=== PATIENT | male | born 1950 | race Caucasian/White ===

== ENCOUNTER 2017-09-11 10:17 | Outpatient (CLI) | payer MEDICARE ==
--- NOTE | 2017-09-11 12:18 | RAD ---
PA AND LATERAL VIEWS OF THE CHEST: HISTORY: Cough, congestion, and dizziness. FINDINGS/IMPRESSION: Comparison is made with the exam of 07/13/17. Bilateral pleural effusions remain stable. The previously noted airspace opacity in the right lower lung demonstrates interval incomplete resolution. The remainder of the parenchymal changes lung fiel ds are otherwise stable. No pneumothoraces are seen. POS: OFF
== END 2017-09-11 10:18 | disposition home or self-care (01) ==
LOC: SCSRAD 10:17
PROVIDERS: ATTEND Family Medicine
DX: R05 Cough (principal); J90 Pleural effusion, not elsewhere classified; R91.8 Other nonspecific abnormal finding of lung field
CPT/HCPCS: 71046

== ENCOUNTER 2017-11-03 10:18 | Inpatient (IN) | payer MEDICARE ==
[2017-11-03] MEDS ORDERED: Ondansetron HCl/PF 4 MG/2 ML Vial IVP PRN (12:26)
[2017-11-03] MEDS ORDERED: Acetaminophen 325 MG TAB PO PRN (12:26)
[2017-11-03] MEDS ORDERED: cefTRIAXone\\ROCEPHIN 1 GM in Sodium Chloride 0.9% 100 ML IVPB SCH (12:30)
--- NOTE | 2017-11-03 13:10 | HP ---
PRIMARY CARE PROVIDER: Adi Hagan M.D. INTERNAL INVESTIGATOR: Tyler Colmenares M.D. Transferred from [facility] to [facility] and transferred to [facility] ist Service for shortness of breath and acute respiratory failure with hypoxemia. The patient states he has had 4 days of increasing shortness of breath, now unable to sleep, jittery, has cough, clear with phlegm. He has chills, sweats for the last 24 hours. PAST MEDICAL HISTORY: Pertinent for COPD, chronic pleural effusion, hypertension, history of DVT and PE approximately 2 years ago. PAST SURGICAL HISTORY: No surgery. MEDICATIONS: Lisinopril 20 mg a day, Anoro Ellipta 1 puff once a day, ProAir HFA 2 puffs q.4 hours p .r.n. ALLERGIES: None. REVIEW OF SYSTEMS: GENERAL: No headaches, dizziness or fainting. EYES: No double vision, blurred vision, flashing lights. EAR, NOSE, AND THROAT: No ear pain or drainage. No nasal bleeding. No tr ouble swallowing. CARDIAC: No chest pain, orthopnea or paroxysmal nocturnal dyspnea. RESPIRATIONS: See present illness. GASTROINTESTINAL: No nausea, vomiting, diarrhea, constipation or abdominal p ain. GENITOURINARY: No hematuria, dysuria or nocturia. MUSCULOSKELETAL: Swelling in his ankles fo r about 1 week. No pain. NEUROLOGIC: No strokes, seizures or focal weakness. PSYCHIATRIC: Anxiou s with his shortness of breath, but no chronic problem with anxiety, depression. SKIN: Bruises easi ly on his arms. HEME/LYMPH: No tender or swollen lymph nodes in axilla, inguinal or cervical area. PHYSICAL EXAMINATION: GENERAL: He is tachypneic, respiratory rate 24-28 on my exam, pulse 95-100, blood pressure 101/73, t emperature 98.9, pulse oximetry on room air was approximately 85%. He is 93% on 3 liters of O2. GENERAL: As mentioned before, he is alert and oriented. HEENT: Examination of his head, eyes, ears, nose, and throat reveal pupils are equal, round, and kalyani ctive to light. Extraocular movements are intact. Sclerae are white. Tympanic membranes clear. No se is clear. Mucous membranes are wet. Dental hygiene is good. NECK: Supple, without jugular venous distention, adenopathy or thyromegaly. CHEST: Hyperresonant with distant breath sounds, wheezes and rhonchi diffusely. HEART: Regular rate and rhythm. First and second heart sounds normal, no appreciated murmurs or gal lops. ABDOMEN: Soft, bowel sounds are normal. There is no hepatosplenomegaly, no mass, no rebound. EXTREMITIES: Reveal 2+ edema, no cyanosis or clubbing. PULSES: Carotid, radial, femoral, and dorsalis pedis pulses intact. Pedal pulses partially obscured by edema, but present. SKIN: Warm and dry with some minor bruising on his arms. HEME/LYMPH: Reveal no tender or swollen lymph nodes in axilla, inguinal or cervical area. NEUROLOGIC: Cranial nerves II-XII are intact. Moves all extremities. Sensation is intact. IMAGING DATA AND LABORATORY DATA: EKG sinus tachycardia, nonspecific ST-T abnormalities. Chest x-ra y revealed bilateral pleural effusion, bilateral lower lobe scarring. Effusions appeared to be worse than previous. No cardiomegaly, question of pulmonary vascular congestion. Laboratory done in [facility]; white count 12.1, hemoglobin 7.3, platelet count 189,000. Comp metabolic profile ; bilirubin 1.3, sodium 135. Troponin is 0.038, CK-MB normal. BNP 283. ADMITTING DIAGNOSES: 1. Acute respiratory failure with hypoxemia. 2. Acute exacerbation of chronic obstructive pulmonary disease. 3. Bilateral pleural effusions. 4. Bilateral pulmonary scarring in the bases. 5. Hypertension. 6. Edema. PLAN: 1. O2 to keep saturation 92%. 2. DuoNeb 3 mL q.4 hours. 3. Dulera 2 puffs q.4 hours b.i.d. 4. Methylprednisone 40 mg IV q.6 hours. 5. Ceftriaxone 1 gram daily. 6. Zithromax 1 gram IV daily. 7. Consult Dr. Colmenares. 8. Serial troponins.
[2017-11-03 14:36] VITALS: BMI 32.5
[2017-11-03] MEDS: cefTRIAXone\\ROCEPHIN 1 GM, Syringe 0.4 ML in Sterile Water 9.6 ML SLOW IVP SCH (14:53)
[2017-11-03] MEDS: Azithromycin 500 MG, Admixture Fee 1 EACH in Sodium Chloride 0.9% 250 ML 250 ML IVPB SCH (15:04)
[2017-11-03 15:23] LABS: Troponin I 0.029 ng/mL (< 0.028)
[2017-11-03] MEDS ORDERED: Phenergan/Codeine 10-6.25mg/5ml UDCUP PO PRN (15:38)
[2017-11-03] MEDS ORDERED: Benzonatate 100 MG CAP PO SCH (16:00)
[2017-11-03] MEDS: Mometasone/Formoterol 120 PUFF INHALER INH SCH (18:57)
[2017-11-03 18:59] LABS: Troponin I 0.032 ng/mL (< 0.028)
[2017-11-03] MEDS: Benzonatate 100 MG CAP PO SCH (21:12)
--- NOTE | 2017-11-04 01:20 | CON ---
DATE OF CONSULTATION: 11/03/2017 HISTORY OF PRESENT ILLNESS: Regis Patiño is a 67-year-old male. He presents with cough, chest congestion, and shortness of breath since Thursday. He has had chills and feeling of sweats as well as possibly fever. He has been unable to sleep because of his coughing at night, subsequently he has been admitted. PAST MEDICAL HISTORY: 1. Remarkable for COPD. 2. History of left greater than right pleural effusion documented on past imaging. 3. History of hypertension. 4. History of deep venous thrombosis and pulmonary embolism. 5. History of obstructive sleep apnea. SOCIAL HISTORY: He is a former smoker with a [id number] history. He rarely drinks alcohol. He has no history of drug use. FAMILY HISTORY: Noncontributory ALLERGIES: He has no reported drug allergies. Daughter in the room appears to be very supportive. PAST SURGICAL HISTORY: Never had surgery. REVIEW OF SYSTEMS: 12-point review of system otherwise completely negative PHYSICAL EXAMINATION: GENERAL: He is a pleasant gentleman in no distress. He is coughing frequently. VITAL SIGNS: He is afebrile, heart rate is 91, respiratory rate 16, oximetry is 100% on 2 liters, blood pressure 142/88. HEENT: Pupils are equal. Sclerae is anicteric. NECK: Supple, no lymphadenopathy. Trachea is in midline. LUNGS: Remarkable for diffuse end expiratory wheezes, more audible anteriorly and posteriorly. He has decreased breath sounds at his left base. HEART: Regular rhythm. S1 and S2 are normal. I do not hear a gallop. ABDOMEN: Soft and nontender. No mass or organomegaly. EXTREMITIES: Without clubbing, cyanosis, or edema. LABORATORY DATA AND X-RAY FINDINGS: Chest radiograph shows left greater than right effusion. No change in his film compared to old films. White count 12.1 , hemoglobin 17.3, platelets 188,000. Sodium 135, potassium 4, chloride 101, bicarbonate 25, BUN 7, creatinine 0.75. I reviewed his radiograph. IMPRESSION: 1. Chronic obstructive pulmonary disease exacerbation. 2. Bronchitis. 3. Chronic bilateral pleural effusions. 4. History of deep venous thrombosis and pulmonary embolism. I recommend continue with antimicrobial therapy. His antibiotics can probably be simplified tomorrow. I think, this is more bronchitis than a pneumonia. I suspect by tomorrow, we can decrease his steroid dosing as well. I have written for Tessalon Perles to be given around the clock as well as p.r.n. Phenergan with codeine cough syrup. This is 50-minute consult greater than 50% of the time was spent on the unit coordinating care. BEN
[2017-11-04 06:14] LABS: Anion Gap 11 mmol/L (10-20); BUN (Urea Nitrogen) 16 mg/dL (8.4-25.7); Calc. Creatinine Clearance 209 mL/min (70-130); Calcium 9.4 mg/dL (7.8-10.44); Carbon Dioxide 28 mmol/L (23-31); Chloride 105 mmol/L (98-107); Estimated GFR-MDRD Greater than 90; Glucose 167 mg/dL (80-115); Potassium 4.7 mmol/L (3.5-5.1); Sodium 139 mmol/L (136-145)
[2017-11-04 06:48] LABS: #Lymphocytes 0.5 thou/uL (1.20-3.40); #Monocytes 0.4 thou/uL (0.11-0.59); #Neutrophils 8.8 thou/uL (1.40-6.50); %Eosinophils 0.1 % (0.0-10.0); %Monocytes 4.5 % (0.0-10.0); %Neutrophils 90.4 % (42.0-75.0); Hemoglobin 17.3 g/dL (14.0-18.0); MDiff Complete? YES; Macrocytosis SLIGHT = 6-15 cells (100X) (0-5/hpf); Mean Corpuscular HGB CONC 32.1 g/dL (32.0-36.0); Mean Corpuscular Hemoglobin 34.9 pg (27.0-31.0); Mean Platelet Volume 6.8 fL (7.4-10.4); PLT Morphology Comment Appears Adequate; Platelet Count 210 thou/uL (130-400); RBC Distribution Width 14.1 % (11.5-14.5); Red Blood Cell (RBC) Count 4.97 mill/uL (4.70-6.10); White Blood Cell (WBC) Count 9.7 thou/uL (4.8-10.8)
[2017-11-04] MEDS: Mometasone/Formoterol 120 PUFF INHALER INH SCH (06:50)
[2017-11-04] MEDS: Benzonatate 100 MG CAP PO SCH ×2 (08:10→15:42)
[2017-11-04] MEDS: Enoxaparin Sodium 40 MG/0.4 ML SYRINGE SC SCH (08:30)
--- NOTE | 2017-11-04 10:06 | PDOC.PN ---
- Subjective Encounter Start Date: 11/04/17 Encounter Start Time: 10:04 Subjective: much less sob - Objective MAR Reviewed: Yes Vital Signs & Weight: Vital Signs (12 hours) Temp Pulse Resp BP Pulse Ox 11/04/17 08:00 97.6 F 96 18 138/72 97 11/04/17 06:48 83 18 99 Weight Weight 318 lb 6.4 oz Result Diagrams: 11/04/17 05:00 11/04/17 05:00 Phys Exam - Physical Examination Neck: no JVD hyperresonant, exp wheezes Cardiovascular: RRR, no significant murmur tachy Gastrointestinal: soft, non-tender, positive bowel sounds Musculoskeletal: edema present Dx/Plan (1) Acute respiratory failure with hypoxia Code(s): J96.01 - ACUTE RESPIRATORY FAILURE WITH HYPOXIA Status: Acute (2) COPD exacerbation Code(s): J44.1 - CHRONIC OBSTRUCTIVE PULMONARY DISEASE W (ACUTE) EXACERBATION Status: Acute (3) Pleural effusion Code(s): J90 - PLEURAL EFFUSION, NOT ELSEWHERE CLASSIFIED Status: Chronic (4) Hypertension Code(s): I10 - ESSENTIAL (PRIMARY) HYPERTENSION Status: Chronic - Plan deescalate steroids -: DC rocephin -: cont duonebs, etc * .
[2017-11-04] MEDS ORDERED: Zolpidem Tartrate 5 MG TAB PO PRN (10:17)
[2017-11-04] MEDS ORDERED: Lisinopril 20 MG TAB PO SCH (10:45)
[2017-11-04] MEDS: cefTRIAXone\\ROCEPHIN 1 GM, Syringe 0.4 ML in Sterile Water 9.6 ML SLOW IVP SCH (12:36)
[2017-11-04] MEDS: Azithromycin 500 MG, Admixture Fee 1 EACH in Sodium Chloride 0.9% 250 ML 250 ML IVPB SCH (12:36)
[2017-11-04 16:08] VITALS: TEMP 97.8
[2017-11-04] MEDS ORDERED: Furosemide 40 MG/4 ML VIAL SLOW IVP SCH (17:30)
--- NOTE | 2017-11-04 17:34 | PRG ---
DATE OF SERVICE: 11/04/2017 SERVICE: Pulmonary Medicine. INTERVAL HISTORY: The patient is doing fine from cardiovascular and respiratory standpoint. He is b reathing more comfortably. He denies any current fevers, chills, nausea, or vomiting. He said that prior to having respiratory difficulty he noticed for the last week, he started having increasing low er extremity swelling. Otherwise, there has been no change to his condition. If anything, he feels better today. PHYSICAL EXAMINATION: VITAL SIGNS: Afebrile, pulse 85, blood pressure 129/84, respirations 16, saturation 90% on room air. GENERAL: The patient is awake, alert, in no apparent distress. LUNGS: Reduced air entry with a prolonged expiratory phase. Dependent crackles. There is expirator y wheezing present. HEART: Normal rate, regular. ABDOMEN: Soft, nontender, nondistended. Bowel sounds are positive. MUSCULOSKELETAL: No cyanosis or clubbing. There is 1+ pitting in the bilateral lower extremities. NEUROLOGIC: Grossly nonfocal. LABORATORY DATA: WBC 9.7, hemoglobin 17.3, platelets 210. Basic metabolic profile is essentially un remarkable. Troponin is marginally elevated at 0.03. ASSESSMENT: 1. Acute hypoxic respiratory failure. 2. Chronic obstructive pulmonary disease with acute exacerbation. 3. Acute on chronic diastolic heart failure. 4. Rounded atelectasis of the right lung, chronic. 5. Bilateral pleural effusions, variable. PLAN: We will provide the patient with a dose of Lasix now and tomorrow morning. If he is doing wel l tomorrow morning, he can be considered for transition out of the hospital. I would like for him to go out on p.r.n. Lasix. His home inhalers will be resumed on discharge. All of his medications branden l be switched over to p.o. at this time. Steroids and antibiotics can be discontinued after a total duration of 5 days.
[2017-11-04] MEDS: Cefdinir 300 MG CAP PO SCH (20:08)
[2017-11-05] MEDS ORDERED: Furosemide 40 MG TAB PO PRN (08:00)
[2017-11-05] MEDS ORDERED: predniSONE 20 MG TAB PO SCH (08:00)
[2017-11-05 08:09] VITALS: BP 106/69
[2017-11-05] MEDS: Cefdinir 300 MG CAP PO SCH (08:49)
[2017-11-05] MEDS: Enoxaparin Sodium 40 MG/0.4 ML SYRINGE SC SCH (08:53)
[2017-11-05] MEDS ORDERED: Lisinopril 5 MG TAB PO SCH (09:00)
[2017-11-05] MEDS ORDERED: Lisinopril 20 MG TAB PO SCH (09:00)
--- NOTE | 2017-11-05 16:30 | PRG ---
DATE OF SERVICE: 11/05/2017 SERVICE: Pulmonary Medicine. INTERVAL HISTORY: The patient is doing really well from a respiratory standpoint. He denies any cur rent fevers, chills, nausea or vomiting. His breathing is much improved over the last 24 hours and roosevelt madden is hopeful to go home today. I do think this is perfectly reasonable given. PHYSICAL EXAMINATION: VITAL SIGNS: Afebrile, pulse 80, blood pressure 106/69, respirations 20 and saturation 94% on room a ir. GENERAL: The patient is awake and alert, in no apparent distress. LUNGS: Much improved air entry. There still remains prolonged expiratory phase. I do not appreciat e the crackles, but polyphonic wheezing is still present. HEART: Normal rate and regular. ABDOMEN: Soft, nontender and nondistended. Bowel sounds are positive. MUSCULOSKELETAL: No cyanosis or clubbing. No pitting in the bilateral lower extremities. NEUROLOGIC: Grossly nonfocal. ASSESSMENT: 1. Acute hypoxic respiratory failure. 2. Chronic obstructive pulmonary disease with acute exacerbation. 3. Acute on chronic diastolic heart failure. 4. Rounded atelectasis of the right lung, chronic. 5. Bilateral pleural effusions, variable associated with volume status. PLAN: The patient will be discharged on p.r.n. Lasix. I will have him return to clinic in the outpa tient setting to consider polysomnogram for sleep apnea. We will also consider triple therapy and sw itch him over to Trelegy Ellipta. He will need to complete 5 days of steroids and antibiotics. He w ill return to clinic to see me as previously directed.
--- NOTE | 2017-11-06 00:30 | DIS ---
PRIMARY CARE PHYSICIAN: Dr. Adi Hagan. DATE OF ADMISSION: 11/03/2017 DATE OF DISCHARGE: 11/05/2017 DISCHARGE DISPOSITION: Home. PRIMARY DISCHARGE DIAGNOSES: 1. Acute on chronic respiratory failure secondary to chronic obstructive pulmonary disease exacerbat ion. 2. History of chronic pleural effusion. 3. Hypertension. 4. History of deep vein thrombosis and pulmonary embolism, 2 years ago. DISCHARGE MEDICATIONS: The patient was discharged on Omnicef 300 mg twice a day for 3 additional day s as well as a 5-day course of prednisone 40 mg daily. He is to continue lisinopril 20 mg daily, Las ix 40 mg daily, Ventolin nebs q.6 as needed, and umeclidinium/vilanterol inhaler daily. CODE STATUS: FULL CODE. ALLERGIES: No known drug allergies. HOSPITAL COURSE: Mr. Patiño is a pleasant 67-year-old gentleman who was admitted to the [facility] with shortness of breath. He was found to be hypoxemic as well. He was admitted for a COPD exacer bation. He was seen by Pulmonology and treated with IV antibiotics as well as steroids and improved over the course of the next few days and was subsequently able to be discharged home in stable condit ion to have close followup with Dr. Colmenares as instructed and also with his primary care physician in 1-2 weeks.
== END 2017-11-05 13:10 | disposition home or self-care (01) | DRG 189 ==
LOC: ERS 10:18 → ERHOLD 12:26 → T4-B 14:22
PROVIDERS: ADMIT Internal Medicine; ATTEND Internal Medicine
DX: J96.21 Acute and chronic respiratory failure with hypoxia (principal); I50.33 Acute on chronic diastolic (congestive) heart failure; J90 Pleural effusion, not elsewhere classified; J44.1 Chronic obstructive pulmonary disease with (acute) exacerbation; J98.11 Atelectasis; Z86.718 Personal history of other venous thrombosis and embolism; Z86.711 Personal history of pulmonary embolism; I11.0 Hypertensive heart disease with heart failure; Z87.891 Personal history of nicotine dependence; F32.9 Major depressive disorder, single episode, unspecified
CPT/HCPCS: 36415; 80048; 85025; 94640; A4216; J0456; J0696; J1650; J1940; J2920; J7050; J7506; J7620

== ENCOUNTER 2018-03-31 16:06 | Outpatient (CLI) | payer MEDICARE ==
--- NOTE | 2018-03-31 16:44 | RAD ---
CHEST TWO VIEW 03/31/18 HISTORY: J44.9 - COPD. COMPARISON: Chest radiograph 11/03/15. FINDINGS: Chronic layering bilateral pleural effusions. There is scarring in both lower lobes. The cardiac silhouette and mediastinal contours are similar. Levoscoliosis at the thoracolumbar junct ion. IMPRESSION: No significant change in radiographic appearance of the chest. Chronic effusion and scarring. POS: CELSOH
== END 2018-03-31 16:07 | disposition home or self-care (01) ==
LOC: SCSRAD 16:06
PROVIDERS: ATTEND Family Medicine
DX: J44.9 Chronic obstructive pulmonary disease, unspecified (principal); J90 Pleural effusion, not elsewhere classified; J98.4 Other disorders of lung
CPT/HCPCS: 71046

== ENCOUNTER 2018-05-02 08:21 | Inpatient (IN) | payer MEDICARE ==
[2018-05-02 09:42] LABS: Troponin I 0.066 ng/mL (< 0.028)
[2018-05-02 12:23] LABS: Troponin I 0.056 ng/mL (< 0.028)
[2018-05-02] MEDS ORDERED: Nitroglycerin 0.4 MG TAB (25 Tab Bottle) PO PRN (14:58)
[2018-05-02] MEDS ORDERED: Senokot 8.6 MG TAB PO PRN (14:59)
[2018-05-02] MEDS ORDERED: Milk Of Magnesia 30 ML UDCUP PO PRN (14:59)
[2018-05-02] MEDS ORDERED: Mag-Al 1200 mg/1200 mg/30 ML UDCUP PO PRN (14:59)
[2018-05-02] MEDS ORDERED: Calcium Carbonate 500 MG ChewTAB PO PRN (14:59)
[2018-05-02] MEDS ORDERED: Acetaminophen 325 MG TAB PO PRN (14:59)
[2018-05-02] MEDS ORDERED: Ondansetron ODT 4 MG TAB PO PRN (14:59)
[2018-05-02] MEDS ORDERED: Ondansetron HCl/PF 4 MG/2 ML Vial IVP PRN (14:59)
--- NOTE | 2018-05-02 15:22 | PDOC.EVN ---
Event Note - Event Note Event Note: Patient seen and examined. Note dictated. Full code. DPOA - self/family
--- NOTE | 2018-05-02 15:25 | HP ---
DATE OF ADMISSION: 05/02/2018 PRIMARY CARE PHYSICIAN: Dr. Hagan. PRIMARY PROFESSOR OF BUSINESS ADMINISTRATION: Dr. Martinez. PRIMARY COLLAR FUSER: Dr. Colmenares. CHIEF COMPLAINT: Shortness of breath. HISTORY OF PRESENT ILLNESS: Patient is a 67-year-old male with chronic diastolic heart failure and c hronic obstructive pulmonary disease with chronic respiratory failure, on home oxygen 2.5 liters, pre sented to the emergency room with worsening shortness of breath along with leg swelling of 1 week dur ation. His symptoms got worse today for which he presented to the emergency room. He initially pres ented to [facility] and was transferred to this facility. He has gained approximately 12 pounds over the past week or so. He also complains of abdominal distention and bloating. He was miguel d by Dr. Martinez to increase Lasix to 80 mg twice a day for 4 days. He tried contacting Dr. Martinez's office; however, did not get a call back after leaving a voicemail. Due to progressive worsening sym ptoms, he presented to the emergency room. He had mild chest pain; however, denies any nausea, vomit ing, diaphoresis, syncope or palpitations. He also complains of shortness of breath on lying down as well as mild exertion. He is currently on 2-1/2 liter oxygen. His O2 saturation in the emergency r oom was in 80s. PAST MEDICAL HISTORY: 1. Chronic diastolic heart failure. 2. Hypertension. 3. Chronic obstructive pulmonary disease. 4. Chronic respiratory failure, on home oxygen. 5. Depression. PAST SURGICAL HISTORY: Reviewed with the patient and none. ALLERGIES: No known drug allergies. CURRENT HOME MEDICATIONS: 1. Lasix 40 mg daily. He took 80 mg Lasix twice a day for 4 days. 2. Anoro Ellipta daily. 3. Lisinopril 20 mg daily. SOCIAL HISTORY: Drinks socially. He is a former smoker. Denies any drug use. FAMILY HISTORY: No premature coronary artery disease. REVIEW OF SYSTEMS: The following complete review of systems was negative, unless otherwise mentioned in the HPI or below: Constitutional: Weight loss or gain, ability to conduct usual activities. Skin: Rash, itching. Eyes: Double vision, pain. ENT/Mouth: Nose bleeding, neck stiffness, pain, tenderness. Cardiovascular: Palpitations, dyspnea on exertion, orthopnea. Respiratory: Shortness of breath, wheezing, cough, hemoptysis, fever or night sweats. Gastrointestinal: Poor appetite, abdominal pain, heartburn, nausea, vomiting, constipation, or diarr hea. Genitourinary: Urgency, frequency, dysuria, nocturia. Musculoskeletal: Pain, swelling. Neurologic/Psychiatric: Anxiety, depression. Allergy/Immunologic: Skin rash, bleeding tendency. PHYSICAL EXAMINATION: VITAL SIGNS: Currently showed temperature 97.9, respirations 26, blood pressure 125/87 with O2 satur ation of 94%. His pulse rate was 95. GENERAL: A 67-year-old male in mild respiratory distress. Able to complete short sentences. HEENT: Head is atraumatic, normocephalic. Sclerae are anicteric. Moist mucous membranes. No oral lesion. NECK: Supple, no significant JVD elevation appreciated. LUNGS: Showed bilateral rhonchi with decreased air entry at bilateral bases. There was mild accesso ry muscle use. No wheezing noted. HEART: S1, S2 present. Regular rate and rhythm. No significant rubs or gallops appreciated. ABDOMEN: Soft, distended, bowel sounds present, no rebound or guarding. EXTREMITIES: No calf tenderness. There is 2-3+ edema. SKIN: Warm and dry. LYMPH NODES: No palpable lymph nodes in the neck. PERIPHERAL VASCULAR: Radial pulses palpable bilaterally. MUSCULOSKELETAL: No joint swelling or tenderness. LABORATORY DATA AND X-RAY FINDINGS: 1. CBC showed WBC 8.4 with hemoglobin 16.5, hematocrit 51.9, platelet 223. 2. INR 2.5 with PT 26.7, PTT 39.7. D-dimer was 1.34. 3. Troponin in the indeterminate range at 0.074 with normal CK-MB. BNP 1139. 4. Urinalysis was negative for WBC or bacteria. 5. CT angiogram of the chest by my review was negative for pulmonary embolism. It showed bilateral effusions with bibasilar atelectasis with vascular congestion. There was also small pericardial effu ainsley. 6. Chest x-ray by my review showed cardiomegaly with pulmonary vascular congestion. 7. EKG by my review showed sinus rhythm with premature ventricular complexes with right bundle branc h block. IMPRESSION: 1. Acute on chronic diastolic heart failure exacerbation. 2. Acute on chronic hypoxic respiratory failure. 3. Contraction alkalosis secondary to diuresis. 4. Chronic kidney disease stage 2. 5. Coagulopathy, chronic of unclear etiology. 6. Elevated D-dimer with negative CT angiogram of the chest for pulmonary embolism. 7. Depression without any suicidal ideation. 8. Hypertension. 9. Abdominal distention and bloating probably secondary to ascites. 10. Chronic obstructive pulmonary disease. 11. Chronic respiratory failure, on home oxygen. PLAN: The patient will be monitored on the telemetry unit. We will continue diuresis. Nebulizer tr eatment as needed. He has significant contraction alkalosis. Cardiology will be consulted. We will add fluid restriction. We will resume MATHIEU inhibitor at low dose. The patient will require 2-3 days for stabilization. Plan of care was discussed with the patient in detail. He stated understanding.
[2018-05-02] MEDS ORDERED: Phytonadione 10 MG/ML AMP PO SCH (16:00)
[2018-05-02] MEDS ORDERED: Furosemide 40 MG/4 ML VIAL SLOW IVP SCH ×2 (16:00)
[2018-05-02 16:08] LABS: Anion Gap 10 mmol/L (10-20); BUN (Urea Nitrogen) 15 mg/dL (8.4-25.7); Calc. Creatinine Clearance 0 mL/min (70-130); Calcium 8.6 mg/dL (7.8-10.44); Carbon Dioxide 37 mmol/L (23-31); Chloride 93 mmol/L (98-107); Estimated GFR-MDRD 72; Glucose 208 mg/dL (80-115); Potassium 4.2 mmol/L (3.5-5.1); Sodium 136 mmol/L (136-145)
[2018-05-02 16:19] LABS: Troponin I 0.057 ng/mL (< 0.028)
[2018-05-02] MEDS: Budesonide 0.5 MG/2 ML NEB INH SCH (19:26)
[2018-05-02] MEDS: Mometasone/Formoterol 120 PUFF INHALER INH SCH (19:29)
[2018-05-02] MEDS: Famotidine 20 MG TAB PO SCH (20:33)
[2018-05-02] MEDS: Docusate 100 MG CAP PO SCH (20:34)
[2018-05-02] MEDS: Lisinopril 5 MG TAB PO SCH (20:34)
[2018-05-03 05:57] LABS: #Lymphocytes 0.6 thou/uL (1.20-3.40); #Monocytes 0.6 thou/uL (0.11-0.59); #Neutrophils 8.9 thou/uL (1.40-6.50); %Basophils 0.1 % (0.0-1.0); %Eosinophils 0.1 % (0.0-10.0); %Lymphocytes 5.5 % (21.0-51.0); %Monocytes 5.8 % (0.0-10.0); %Neutrophils 88.5 % (42.0-75.0); Mean Corpuscular HGB CONC 31.8 g/dL (32.0-36.0); Mean Corpuscular Hemoglobin 32.1 pg (27.0-31.0); Mean Platelet Volume 6.7 fL (7.4-10.4); Platelet Count 200 thou/uL (130-400); RBC Distribution Width 12.4 % (11.5-14.5); Red Blood Cell (RBC) Count 4.66 mill/uL (4.70-6.10)
[2018-05-03 06:04] LABS: INR-International Normal Ratio 1.7; PTT 35.1 SEC (22.9-36.1)
[2018-05-03 06:11] LABS: ALT (SGPT) 18 U/L (8-55); AST (SGOT) 17 U/L (5-34); Alkaline Phosphatase 82 U/L (40-150); Anion Gap 13 mmol/L (10-20); BUN (Urea Nitrogen) 14 mg/dL (8.4-25.7); Bilirubin, Total 0.4 mg/dL (0.2-1.2); Calc. Creatinine Clearance 180 mL/min (70-130); Calcium 8.6 mg/dL (7.8-10.44); Carbon Dioxide 34 mmol/L (23-31); Chloride 94 mmol/L (98-107); Estimated GFR-MDRD Greater than 90; Globulin 2.6 g/dL (2.4-3.5); Glucose 130 mg/dL (80-115); Magnesium 2.3 mg/dL (1.6-2.6); Potassium 4.7 mmol/L (3.5-5.1); Protein, Total 5.6 g/dL (5.8-8.1); Sodium 136 mmol/L (136-145)
[2018-05-03] MEDS: Furosemide 40 MG/4 ML VIAL SLOW IVP SCH ×2 (06:24→14:24)
[2018-05-03] MEDS: Budesonide 0.5 MG/2 ML NEB INH SCH ×2 (06:52→19:31)
[2018-05-03] MEDS: Mometasone/Formoterol 120 PUFF INHALER INH SCH ×2 (06:54→19:34)
[2018-05-03] MEDS: Docusate 100 MG CAP PO SCH ×2 (10:34→20:54)
[2018-05-03] MEDS: Lisinopril 5 MG TAB PO SCH ×2 (10:34→20:55)
[2018-05-03] MEDS: Aspirin 81 mg Enteric Coated Tablet PO SCH (10:34)
[2018-05-03] MEDS: Famotidine 20 MG TAB PO SCH ×2 (10:35→20:46)
[2018-05-03] MEDS: Multivit, Therapeutic 1 TAB PO SCH (10:35)
[2018-05-03] MEDS ORDERED: Phytonadione 10 MG/ML AMP PO SCH (13:00)
--- NOTE | 2018-05-03 17:44 | CON ---
DATE OF CONSULTATION: 05/03/2018 CARDIOLOGY CONSULTATION REASON FOR CONSULTATION: Heart failure. HISTORY OF PRESENT ILLNESS: Mr. Patiño is a pleasant 67-year-old white gentleman who comes to the [facility] for worsening shortness of breath. He has a history of COPD. He continues to smoke. Follows up by Dr. Colmenares. I saw him in the office just a week ago for the first time since 2014. At that t bel in 2014, he had had an echo that showed normal LV function and diastolic heart failure. He prese nted to the office with increased shortness of breath and lower extremity edema. We put him on Lasix 80 mg twice a day for 3 or 4 days, he felt his edema did improve except for the last day. His edema and shortness of breath certainly had worsened. This was Thursday, the edema and the shortness of jamia ath got worse until Thursday when he decided to come into the hospital. He was found to have an elevat ed BNP and be in florid heart rates. He was admitted for further evaluation and care. He has been d iuresed with IV Lasix and he has been peeing a lot more effectively then with p.o. Lasix. PAST MEDICAL HISTORY: 1. COPD. 2. Chronic diastolic heart failure. 3. Hypertension. 4. Home oxygen use secondary to COPD. 5. Depression. 6. History of bilateral PEs, has been off Coumadin for the last 2 or 3 years. PAST SURGICAL HISTORY: None. OUTPATIENT MEDICATIONS: Include, 1. Lasix. 2. Anoro Ellipta. 3. Lisinopril 20 mg a day. ALLERGIES: No known drug allergies. SOCIAL HISTORY: Social alcohol use, has not smoked in the last week. No drug use. FAMILY HISTORY: Noncontributory. REVIEW OF SYSTEMS: A 12-point review of systems was done and is all negative unless stated in the hi story of present illness. PHYSICAL EXAMINATION: VITAL SIGNS: Temperature 97.7, pulse 83, respiration rate 20, satting 92% on 2 liters, blood pressur e 102/57. GENERAL: Awake, alert, oriented x3, in no distress. HEENT: Normocephalic, atraumatic. NECK: Supple. LUNGS: Have reduced breath sounds bilaterally. CARDIOVASCULAR: S1, S2, no S3, S4. There is a grade 2/6 systolic murmur right upper sternal border. ABDOMEN: Soft, positive bowel sounds. EXTREMITIES: 3+ edema on the left leg, 1+ on the right leg. SKIN: Warm and dry. LABORATORY WORK: Reviewed. CBC is unremarkable. Coags were reviewed. Chemistries were reviewed. Normal sodium and potassium normal BUN and creatinine. Troponin is 0.06 and 0.05, 0.05. Albumin of 3.0. BNP was 1139. EKG is reviewed. CT of the chest was reviewed. There is no pulmonary embolisms. There are bilateral pleural effusion s with small pericardial effusion and cardiomegaly with vascular congestion. Telemetry monitoring that showed several runs of nonsustained VT. ASSESSMENT AND PLAN: 1. Acute on chronic decompensated heart failure, systolic versus diastolic, highly suspect systolic this time. 2. Chronic obstructive pulmonary disease. 3. History of bilateral pulmonary embolism. PLAN: We will increase IV diuresis to Lasix 80 mg twice a day. We will continue other medications. We will get an echocardiogram and depending on LV function, will decide on further risk stratificati on currently, most likely will just diurese. We will plan on doing this as an outpatient. Thank you letting us to participate in the care of your patient. We will follow.
--- NOTE | 2018-05-03 21:26 | PDOC.PN ---
- Subjective Encounter Start Date: 05/03/18 Encounter Start Time: 15:00 Patient seen and examined for CHF. No new complaints. No overnight events - Objective Resuscitation Status: Resuscitation Status FULL:Full Resuscitation MAR Reviewed: Yes Vital Signs & Weight: Vital Signs (12 hours) Temp Pulse Resp BP BP Pulse Ox 05/03/18 20:55 84 99/54 L 05/03/18 19:31 88 16 96 05/03/18 14:25 97.7 F 83 20 102/57 L 92 L 05/03/18 10:34 86 Weight Admit Weight 305 lb 4.8 oz Weight 304 lb 9.6 oz I&O: 05/02/18 05/03/18 05/04/18 06:59 06:59 06:59 Intake Total 450 Output Total 1525 Balance -1075 Result Diagrams: 05/03/18 05:36 05/03/18 05:36 EKG Reviewed by me: Yes (Tele SR) Phys Exam - Physical Examination Constitutional: NAD Respiratory: no wheezing, no rhonchi Few bibasilar rales Cardiovascular: RRR, no rub Gastrointestinal: soft, non-tender, positive bowel sounds Musculoskeletal: edema present Neurological: non-focal Dx/Plan - Plan DVT proph w/SCDs IMPRESSION: 1. Acute on chronic diastolic heart failure exacerbation. 2. Acute on chronic hypoxic respiratory failure. 3. NSVT 4. Chronic kidney disease stage 2. 5. Coagulopathy prob due to Vit K def 6. Elevated tropo due to CHF 7. Depression. 8. Hypertension. 9. Abdominal distention and bloating probably secondary to ascites. 10. Chronic obstructive pulmonary disease. 11. Chronic respiratory failure, on home oxygen/Obesity BMI 31.1 / PLAN: Cont IV diuresis Daily labs Cont ACEI No Betablocker due to COPD Cont Vit K Cont Cardiac Rehab Cont current labs as below Review of Systems - Review of Systems Constitutional: negative: fever, chills, sweats, weakness, malaise, other Respiratory: negative: Cough, Dry, Shortness of Breath, Hemoptysis, SOB with Excertion, Pleuritic Pain, Sputum, Wheezing Gastrointestinal: negative: Nausea, Vomiting, Abdominal Pain, Diarrhea, Constipation, Melena, Hematochezia, Other - Medications/Allergies Allergies/Adverse Reactions: Allergies Allergy/AdvReac Type Severity Reaction Status Date / Time No Known Allergies Allergy Verified 11/03/17 14:32 Medications: Current Medications Acetaminophen (Tylenol) 650 mg PO Q6H PRN PRN Reason: Headache/Fever or Pain Al Hydroxide/Mg Hydroxide (Maalox) 30 ml PO Q6H PRN PRN Reason: Heartburn or Indigestion Albuterol/Ipratropium (Duoneb) 3 ml NEB [id number] PRN PRN Reason: SOB &/or Wheezing Last Admin: 05/03/18 06:56 Dose: 3 ml Aspirin (Ecotrin) 81 mg PO DAILY [facility] Last Admin: 05/03/18 10:34 Dose: 81 mg Budesonide (Pulmicort Neb Solution) 0.5 mg INH BID-RT [facility] Last Admin: 05/03/18 19:31 Dose: 0.5 mg Calcium Carbonate (Tums) 1,000 mg PO Q4H PRN PRN Reason: Heartburn or Indigestion Docusate Sodium (Colace) 100 mg PO BID [facility] Last Admin: 05/03/18 20:54 Dose: Not Given Famotidine (Pepcid) 20 mg PO BID [facility] Last Admin: 05/03/18 20:46 Dose: 20 mg Furosemide (Lasix) 80 mg PO 0900,1400 [facility] Lactulose (Lactulose) 20 gm PO DAILYPRN PRN PRN Reason: Constipation Lisinopril (Zestril) 5 mg PO BID [facility] Last Admin: 05/03/18 20:55 Dose: Not Given Magnesium Hydroxide (Milk Of Magnesium) 30 ml PO DAILYPRN PRN PRN Reason: Constipation Mometasone Furoate/Formoterol Fumar (Dulera 200 Mcg/5 Mcg Inhaler) 2 puff INH BID-RT [facility] Last Admin: 05/03/18 19:34 Dose: Not Given Multivitamins (Theragran) 1 tab PO DAILY [facility] Last Admin: 05/03/18 10:35 Dose: 1 tab Nitroglycerin (Nitrostat) 0.4 mg PO Q5MIN PRN PRN Reason: Chest Pain Ondansetron HCl (Zofran Odt) 4 mg PO Q6H PRN PRN Reason: Nausea/Vomiting Ondansetron HCl (Zofran) 4 mg IVP Q6H PRN PRN Reason: Nausea/Vomiting [Anoro Ellipta] 1 (Inh) 0 each INH DAILY [facility] Senna (Senokot) 2 tab PO HSPRN PRN PRN Reason: Constipation Sodium Chloride (Flush - Normal Saline) 10 ml IVF Q12HR [facility] Last Admin: 05/03/18 20:49 Dose: 10 ml Sodium Chloride (Flush - Normal Saline) 10 ml IVF PRN PRN PRN Reason: Saline Flush
[2018-05-04 06:32] LABS: Anion Gap 11 mmol/L (10-20); BUN (Urea Nitrogen) 17 mg/dL (8.4-25.7); Calc. Creatinine Clearance 184 mL/min (70-130); Calcium 8.3 mg/dL (7.8-10.44); Carbon Dioxide 33 mmol/L (23-31); Chloride 95 mmol/L (98-107); Estimated GFR-MDRD Greater than 90; Glucose 139 mg/dL (80-115); Magnesium 2.3 mg/dL (1.6-2.6); Potassium 3.8 mmol/L (3.5-5.1); Sodium 135 mmol/L (136-145)
[2018-05-04 06:51] LABS: INR-International Normal Ratio 1.1; PTT 29.5 SEC (22.9-36.1); Prothrombin Time 14.4 SEC (12.0-14.7)
[2018-05-04] MEDS: Budesonide 0.5 MG/2 ML NEB INH SCH ×2 (07:20→18:56)
[2018-05-04] MEDS: Mometasone/Formoterol 120 PUFF INHALER INH SCH ×2 (07:24→19:14)
[2018-05-04] MEDS ORDERED: ANORO ELLIPTA INH SCH (09:00)
[2018-05-04] MEDS ORDERED: Non-Formulary Item 1 EACH (Umeclidinium Brm/Vilanterol Tr [Anoro Ellipta] 1 INH) IH SCH (09:00)
[2018-05-04] MEDS: Multivit, Therapeutic 1 TAB PO SCH (09:54)
[2018-05-04] MEDS: Aspirin 81 mg Enteric Coated Tablet PO SCH (09:55)
[2018-05-04] MEDS: Furosemide 20 MG TAB PO SCH ×2 (09:55→14:30)
[2018-05-04] MEDS: Lisinopril 5 MG TAB PO SCH ×2 (09:57→20:11)
[2018-05-04] MEDS: Docusate 100 MG CAP PO SCH ×2 (09:59→20:12)
[2018-05-04] MEDS: Famotidine 20 MG TAB PO SCH ×2 (12:41→20:12)
--- NOTE | 2018-05-04 17:17 | PDOC.CTH ---
Cardiology Progress Note - Subjective He is doing better. He continues to diurese. He is still unable to lay flat without being short winded. - Objective Vital Signs Temp Pulse Pulse Pulse Resp BP BP 05/04/18 13:41 93 92 103/53 L 106/66 05/04/18 09:57 80 05/04/18 08:15 98.4 F 80 22 H 05/04/18 07:20 80 14 BP Pulse Ox Pulse Ox Pulse Ox 05/04/18 13:41 90 L 92 L 05/04/18 09:57 05/04/18 08:15 115/68 92 L 05/04/18 07:20 Admit Weight 305 lb 4.8 oz Weight 302 lb 12.8 oz 05/03/18 05/04/18 05/05/18 06:59 06:59 06:59 Intake Total 450 800 Output Total 1525 Balance -1075 800 - Physical Examination General/Neuro: alert & oriented x3, NAD Neck: no JVD present Lungs: other: (Reduced breath sounds.) Heart: RRR Abdomen: NT/ND Extremities: + edema B (1+) - Telemetry Telemetry Rhythm: NSR - Labs Result Diagrams: 05/03/18 05:36 05/04/18 05:44 Troponin/CKMB Troponin I 0.057 ng/mL (< 0.028) H 05/02/18 15:42 - Assessment/Plan 1. New onset dilated CM EF at 25-30%. 2. Acute systolic heart failure. 3. COPD 4. Hx of bilateral pulmonary embolism. PLAN: - Continue IV diuresis with lasix. - Will need C once able to lay flat. - Continue ACEI for now. Once more euvolemic will make space for a low dose BB as long pulmonary thinks he can tolerate given his COPD. - Will need lifevest before discharge. Will discuss with family after [facility] about this. - Will follow.
--- NOTE | 2018-05-04 22:30 | PDOC.PN ---
- Subjective Encounter Start Date: 05/04/18 Encounter Start Time: 09:30 Patient seen and examined for CHF. No new complaints. No overnight events. SOB improving. - Objective Resuscitation Status: Resuscitation Status FULL:Full Resuscitation MAR Reviewed: Yes Vital Signs & Weight: Vital Signs (12 hours) Temp Pulse Pulse Pulse Resp BP BP 05/04/18 20:11 86 05/04/18 19:30 98.4 F 86 22 H 05/04/18 18:56 90 16 05/04/18 18:53 90 16 05/04/18 16:45 98.0 F 86 22 H 05/04/18 13:41 93 92 103/53 L 106/66 05/04/18 12:40 98.7 F 86 22 H BP Pulse Ox Pulse Ox Pulse Ox 05/04/18 20:11 05/04/18 19:30 115/74 95 05/04/18 18:56 95 05/04/18 18:53 95 05/04/18 16:45 111/76 93 L 05/04/18 13:41 90 L 92 L 05/04/18 12:40 120/68 93 L Weight Admit Weight 305 lb 4.8 oz Weight 302 lb 12.8 oz I&O: 05/03/18 05/04/18 05/05/18 06:59 06:59 06:59 Intake Total 450 800 590 Output Total 1525 1775 Balance -1075 800 -1185 Result Diagrams: 05/05/18 05:11 05/06/18 07:01 Phys Exam - Physical Examination Constitutional: NAD Respiratory: no wheezing, no rhonchi few bibasilar rales Cardiovascular: RRR, no rub Gastrointestinal: soft, non-tender, positive bowel sounds Musculoskeletal: edema present (improvng) Neurological: moves all 4 limbs Psychiatric: A&O x 3 Dx/Plan - Plan IMPRESSION: 1. Acute on chronic systolic/diastolic heart failure exacerbation. 2. Acute on chronic hypoxic respiratory failure. 3. NSVT 4. Chronic kidney disease stage 2. 5. Coagulopathy prob due to Vit K def/Hepatic congestion - improving 6. Elevated tropo due to CHF 7. Depression. 8. Hypertension. 9. Abdominal distention and bloating probably secondary to ascites. 10. Chronic obstructive pulmonary disease. 11. Chronic respiratory failure, on home oxygen/Obesity BMI 31.1 PLAN: Cont IV diuresis Daily labs Cont ACEI No Betablocker due to COPD Cont Cardiac Rehab Cont current meds as below Lifevest at dc Cardiac Cath once able to lie flat. Review of Systems - Medications/Allergies Allergies/Adverse Reactions: Allergies Allergy/AdvReac Type Severity Reaction Status Date / Time No Known Allergies Allergy Verified 11/03/17 14:32 Medications: Current Medications Acetaminophen (Tylenol) 650 mg PO Q6H PRN PRN Reason: Headache/Fever or Pain Al Hydroxide/Mg Hydroxide (Maalox) 30 ml PO Q6H PRN PRN Reason: Heartburn or Indigestion Albuterol/Ipratropium (Duoneb) 3 ml NEB [id number] PRN PRN Reason: SOB &/or Wheezing Last Admin: 05/04/18 18:53 Dose: 3 ml Aspirin (Ecotrin) 81 mg PO DAILY [facility] Last Admin: 05/04/18 09:55 Dose: 81 mg Budesonide (Pulmicort Neb Solution) 0.5 mg INH BID-RT [facility] Last Admin: 05/04/18 18:56 Dose: 0.5 mg Calcium Carbonate (Tums) 1,000 mg PO Q4H PRN PRN Reason: Heartburn or Indigestion Docusate Sodium (Colace) 100 mg PO BID [facility] Last Admin: 05/04/18 20:12 Dose: Not Given Famotidine (Pepcid) 20 mg PO BID [facility] Last Admin: 05/04/18 20:12 Dose: 20 mg Furosemide (Lasix) 80 mg SLOW IVP 0600,1400 [facility] Lactulose (Lactulose) 20 gm PO DAILYPRN PRN PRN Reason: Constipation Lisinopril (Zestril) 5 mg PO BID [facility] Last Admin: 05/04/18 20:11 Dose: Not Given Magnesium Hydroxide (Milk Of Magnesium) 30 ml PO DAILYPRN PRN PRN Reason: Constipation Mometasone Furoate/Formoterol Fumar (Dulera 200 Mcg/5 Mcg Inhaler) 2 puff INH BID-RT [facility] Last Admin: 05/04/18 19:14 Dose: Not Given Multivitamins (Theragran) 1 tab PO DAILY [facility] Last Admin: 05/04/18 09:54 Dose: 1 tab Nitroglycerin (Nitrostat) 0.4 mg PO Q5MIN PRN PRN Reason: Chest Pain Ondansetron HCl (Zofran Odt) 4 mg PO Q6H PRN PRN Reason: Nausea/Vomiting Ondansetron HCl (Zofran) 4 mg IVP Q6H PRN PRN Reason: Nausea/Vomiting Senna (Senokot) 2 tab PO HSPRN PRN PRN Reason: Constipation Sodium Chloride (Flush - Normal Saline) 10 ml IVF Q12HR [facility] Last Admin: 05/04/18 20:14 Dose: 10 ml Sodium Chloride (Flush - Normal Saline) 10 ml IVF PRN PRN PRN Reason: Saline Flush
[2018-05-05] MEDS: Furosemide 100 MG/10 ML VIAL SLOW IVP SCH ×2 (05:37→14:25)
[2018-05-05 05:38] LABS: Platelet Count 172 thou/uL (130-400)
[2018-05-05 06:04] LABS: Anion Gap 10 mmol/L (10-20); BUN (Urea Nitrogen) 19 mg/dL (8.4-25.7); Calc. Creatinine Clearance 181 mL/min (70-130); Calcium 8.4 mg/dL (7.8-10.44); Carbon Dioxide 35 mmol/L (23-31); Chloride 95 mmol/L (98-107); Estimated GFR-MDRD Greater than 90; Glucose 130 mg/dL (80-115); Magnesium 1.9 mg/dL (1.6-2.6); Potassium 3.7 mmol/L (3.5-5.1); Sodium 136 mmol/L (136-145)
[2018-05-05] MEDS: Budesonide 0.5 MG/2 ML NEB INH SCH (07:10)
[2018-05-05] MEDS: Famotidine 20 MG TAB PO SCH ×2 (09:28→20:34)
[2018-05-05] MEDS: Aspirin 81 mg Enteric Coated Tablet PO SCH (09:28)
[2018-05-05] MEDS: Docusate 100 MG CAP PO SCH ×3 (09:28→20:33)
[2018-05-05] MEDS: Multivit, Therapeutic 1 TAB PO SCH (09:29)
[2018-05-05] MEDS: Lisinopril 5 MG TAB PO SCH ×3 (09:29→20:33)
[2018-05-05] MEDS: Mometasone/Formoterol 120 PUFF INHALER INH SCH ×2 (09:32→18:53)
[2018-05-05] MEDS ORDERED: Potassium Chloride 20 MEQ TAB PO SCH (09:45)
[2018-05-05] MEDS ORDERED: predniSONE 20 MG TAB PO SCH (16:00)
--- NOTE | 2018-05-05 16:41 | PDOC.CTH ---
Cardiology Progress Note - Subjective He is doing better. He has diuresed more effectively. - Objective Vital Signs Temp Pulse Resp BP Pulse Ox 05/05/18 16:18 97.5 F L 76 20 116/71 93 L 05/05/18 11:49 98.1 F 70 20 122/64 92 L 05/05/18 09:29 63 05/05/18 07:51 98.4 F 63 20 125/75 94 L 05/05/18 07:38 98.4 F 63 20 94 L 05/05/18 07:10 100 14 Admit Weight 305 lb 4.8 oz Weight 300 lb 11.2 oz 05/04/18 05/05/18 05/06/18 06:59 06:59 06:59 Intake Total 800 1090 Output Total 3175 Balance 800 -2085 - Physical Examination General/Neuro: alert & oriented x3, NAD Neck: no JVD present Lungs: unlabored respirations, other: (Reduced breath sounds. ) Heart: RRR Abdomen: NT/ND Extremities: + edema B (1+) - Telemetry Telemetry Rhythm: NSR, PVC's - Labs Result Diagrams: 05/05/18 05:11 05/05/18 05:11 Troponin/CKMB Troponin I 0.057 ng/mL (< 0.028) H 05/02/18 15:42 - Assessment/Plan 1. New onset dilated CM EF at 25-30%. 2. Acute systolic heart failure. 3. COPD 4. Hx of bilateral pulmonary embolism. PLAN: - Continue IV diuresis with lasix. - LHC in the next 24 to 48 hrs. Likely not until Thursday as he is 6'11" and he will require that we get long 125 cm catheters which have been ordered and will be here in the next few days. If the time frame for these catheters gets longer we may need to send him home and bring back as an outpatient. - Continue ACEI for now. Will add BB before discharge. - Will need lifevest before discharge. Will discuss with family after C about this. - Will follow.
[2018-05-05] MEDS: Potassium Chloride 20 MEQ TAB PO SCH (17:03)
--- NOTE | 2018-05-05 18:11 | CON ---
DATE OF CONSULTATION: 05/05/2018 SERVICE: Pulmonary Medicine. HISTORY OF PRESENT ILLNESS: The patient is a 68-year-old white male with past medical history significant for chronic diastolic disease, as well as other issues. Two months ago, he started having increasing swelling in his lower extremities. He is taking Lasix for a period of time to temporize it, but suddenly Lasix stopped working. He started packing on significant amounts of weight. He had increasing abdominal swelling, lower extremity swelling, and shortness of breath with dyspnea on exertion, and paroxysmal nocturnal dyspnea. It has been 2 days since he got any rest. He finally woke up in the middle of the night acutely dyspneic and presented to the Emergency Department. He denies any current fevers, chills, nausea or vomiting. He is coughing up frothy white sputum. Otherwise, he is in his usual state of health. He got a couple of doses of Lasix, and this has significantly improved his abdominal discomfort, lower extremity edema, and shortness of breath. Otherwise, there has been no interval change to his condition. PAST MEDICAL HISTORY: 1. Chronic obstructive pulmonary disease. 2. Chronic systolic and diastolic heart failure. 3. Hypertension. 4. Major depressive disorder. 5. Chronic hypoxic respiratory failure, on home oxygen. PAST SURGICAL HISTORY: None. ALLERGIES: No known drug allergies. MEDICATIONS: List of his inpatient medications was reviewed. No specific updates were made at this time. FAMILY HISTORY: Noncontributory. SOCIAL HISTORY: Negative for alcohol, tobacco or illicit drug use. He denies any exposure to chemicals, dust asbestosis or tuberculosis. He has a greater than [id number] history of smoking, but quit a couple years ago. REVIEW OF SYSTEMS: General, head, ears, eyes, nose, throat, cardiovascular, respiratory, GI, , musculoskeletal, neurologic and skin is negative except as mentioned in the HPI. PHYSICAL EXAMINATION: VITAL SIGNS: Afebrile, pulse 70, blood pressure is 122/64, respirations 20, saturation 94% on 2 liters nasal cannula. GENERAL: The patient is awake, alert, no apparent distress. LUNGS: Decreased air entry. There is a prolonged expiratory phase. There are some rhonchi and wheezing, but crackles predominate throughout bilateral lung guido. HEART: Normal rate, regular. ABDOMEN: Soft, nontender, nondistended. Bowel sounds are positive. MUSCULOSKELETAL: No cyanosis or clubbing. There is 2+ pitting in the bilateral lower extremities. NEUROLOGIC: Grossly nonfocal. LABORATORY DATA: WBC 10.0, hemoglobin 15.0, platelets 172,000. INR 1.1. Basic metabolic profile is essentially unremarkable. His bicarbonate is up trending to 35. Magnesium 1.9, potassium 3.7. IMAGING DATA: Echocardiogram demonstrates ejection fraction which is significantly reduced at 25%-30%. He has 2-3 diastolic dysfunction. A bundle branch is evident with the septal bounce. RV is dilated. Small pericardial effusion is present without tamponade. ASSESSMENT: 1. Acute on chronic hypoxic respiratory failure. 2. Chronic obstructive pulmonary disease with acute exacerbation secondary to fluid. 3. Acute systolic heart failure. 4. Acute on chronic diastolic heart failure. PLAN: The patient is being diuresed to euvolemia. I reviewed his pulmonary function studies. At baseline, he has severe obstructive lung disease with no significant reversibility, nearly normal lung volumes and a preserved diffusion capacity. He is also on oxygen at home. With this, he would be a high risk patient for a high risk procedure if a bypass is required moving forward. He understands that this would put him at increased risk of respiratory failure, COPD exacerbations in the perioperative period, prolonged mechanical ventilation use with possible tracheostomy, and possible chronic respiratory failure that is so severe that he can get by without mechanical ventilation. Any surgical procedure should be postponed until he is optimized from a respiratory standpoint. Once he returns euvolemia, he should be at that location. Pulmonary or Critical Care will continue to follow along while the patient remains in this location. Agree with aggressive diuresis for the time being. Once we see a contraction alkalosis, we will back off to once daily. 70 minutes have been devoted to this patient in various activities. I personally reviewed all imaging studies and laboratory data noted within this document. For fifty percent of this time, I was interacting with the patient at the bedside or coordinating care with the care team. For the remainder of the time I was immediately available to the patient in the hospital unit. BEN
--- NOTE | 2018-05-05 20:47 | PDOC.PN ---
- Subjective Encounter Start Date: 05/05/18 Encounter Start Time: 12:00 Patient seen and examined for CHF flare. SOB improving. No new complaints. No overnight events - Objective Resuscitation Status: Resuscitation Status FULL:Full Resuscitation MAR Reviewed: Yes Vital Signs & Weight: Vital Signs (12 hours) Temp Pulse Resp BP Pulse Ox 05/05/18 20:30 98 F 88 20 115/64 93 L 05/05/18 18:51 80 16 94 L 05/05/18 16:18 97.5 F L 76 20 116/71 93 L 05/05/18 11:49 98.1 F 70 20 122/64 92 L 05/05/18 09:29 63 Weight Admit Weight 305 lb 4.8 oz Weight 300 lb 11.2 oz I&O: 05/04/18 05/05/18 05/06/18 06:59 06:59 06:59 Intake Total 800 1090 1110 Output Total 3175 3100 Balance Result Diagrams: 05/05/18 05:11 05/06/18 07:01 EKG Reviewed by me: Yes (Tele SR) Phys Exam - Physical Examination Constitutional: NAD Respiratory: no wheezing, no rhonchi Cardiovascular: RRR, no rub Gastrointestinal: soft, positive bowel sounds Musculoskeletal: edema present Neurological: moves all 4 limbs Dx/Plan - Plan DVT proph w/SCDs IMPRESSION: 1. Acute on chronic systolic/diastolic heart failure exacerbation. 2. Acute on chronic hypoxic respiratory failure. 3. NSVT 4. Chronic kidney disease stage 2. 5. Coagulopathy prob due to Vit K def/Hepatic congestion - improving 6. Elevated tropo due to CHF 7. Depression. 8. Hypertension. 9. Abdominal distention and bloating probably secondary to ascites. 10. Chronic obstructive pulmonary disease. 11. Chronic respiratory failure, on home oxygen/Obesity BMI 31.1 PLAN: Cont IV Lasix Cath when able to lie flat Cont ACEI No Betablocker due to COPD Cont current meds as below Lifevest at dc Review of Systems - Review of Systems Constitutional: negative: fever, chills, sweats, weakness, malaise, other Gastrointestinal: negative: Nausea, Vomiting, Abdominal Pain, Diarrhea, Constipation, Melena, Hematochezia, Other - Medications/Allergies Allergies/Adverse Reactions: Allergies Allergy/AdvReac Type Severity Reaction Status Date / Time No Known Allergies Allergy Verified 11/03/17 14:32 Medications: Current Medications Acetaminophen (Tylenol) 650 mg PO Q6H PRN PRN Reason: Headache/Fever or Pain Al Hydroxide/Mg Hydroxide (Maalox) 30 ml PO Q6H PRN PRN Reason: Heartburn or Indigestion Albuterol/Ipratropium (Duoneb) 3 ml NEB [id number] PRN PRN Reason: SOB &/or Wheezing Last Admin: 05/05/18 07:10 Dose: 3 ml Albuterol/Ipratropium (Duoneb) 3 ml NEB [id number] [facility] Last Admin: 05/05/18 18:51 Dose: 3 ml Aspirin (Ecotrin) 81 mg PO DAILY [facility] Last Admin: 05/05/18 09:28 Dose: 81 mg Calcium Carbonate (Tums) 1,000 mg PO Q4H PRN PRN Reason: Heartburn or Indigestion Docusate Sodium (Colace) 100 mg PO BID [facility] Last Admin: 05/05/18 20:33 Dose: Not Given Famotidine (Pepcid) 20 mg PO BID [facility] Last Admin: 05/05/18 20:34 Dose: 20 mg Furosemide (Lasix) 80 mg SLOW IVP 0600,1400 [facility] Last Admin: 05/05/18 14:25 Dose: 80 mg Lactulose (Lactulose) 20 gm PO DAILYPRN PRN PRN Reason: Constipation Lisinopril (Zestril) 5 mg PO BID [facility] Last Admin: 05/05/18 20:33 Dose: Not Given Magnesium Hydroxide (Milk Of Magnesium) 30 ml PO DAILYPRN PRN PRN Reason: Constipation Mometasone Furoate/Formoterol Fumar (Dulera 200 Mcg/5 Mcg Inhaler) 2 puff INH BID-RT [facility] Last Admin: 05/05/18 18:53 Dose: 2 puff Multivitamins (Theragran) 1 tab PO DAILY [facility] Last Admin: 05/05/18 09:29 Dose: 1 tab Nitroglycerin (Nitrostat) 0.4 mg PO Q5MIN PRN PRN Reason: Chest Pain Ondansetron HCl (Zofran Odt) 4 mg PO Q6H PRN PRN Reason: Nausea/Vomiting Ondansetron HCl (Zofran) 4 mg IVP Q6H PRN PRN Reason: Nausea/Vomiting Potassium Chloride (K-Dur) 20 meq PO BID-WM [facility] Last Admin: 05/05/18 17:03 Dose: 20 meq Prednisone (Prednisone) 40 mg PO QAM-WM [facility] Stop: 05/08/18 08:01 Senna (Senokot) 2 tab PO HSPRN PRN PRN Reason: Constipation Sodium Chloride (Flush - Normal Saline) 10 ml IVF Q12HR [facility] Last Admin: 05/05/18 09:31 Dose: 10 ml Sodium Chloride (Flush - Normal Saline) 10 ml IVF PRN PRN PRN Reason: Saline Flush
[2018-05-06] MEDS: Furosemide 100 MG/10 ML VIAL SLOW IVP SCH (06:18)
[2018-05-06] MEDS: Mometasone/Formoterol 120 PUFF INHALER INH SCH ×2 (06:37→18:35)
[2018-05-06 07:34] LABS: BUN (Urea Nitrogen) 18 mg/dL (8.4-25.7); Calc. Creatinine Clearance 174 mL/min (70-130); Calcium 9.1 mg/dL (7.8-10.44); Estimated GFR-MDRD Greater than 90; Glucose 117 mg/dL (80-115); Magnesium 2.1 mg/dL (1.6-2.6)
[2018-05-06 07:43] LABS: Anion Gap 9 mmol/L (10-20); Chloride 94 mmol/L (98-107); Potassium 4.4 mmol/L (3.5-5.1); Sodium 140 mmol/L (136-145)
[2018-05-06 07:50] LABS: Carbon Dioxide 41 mmol/L (23-31)
--- NOTE | 2018-05-06 09:10 | PRG ---
DATE OF SERVICE: 05/06/2018 SERVICE: Pulmonary Medicine. INTERVAL HISTORY: The patient is doing great from a respiratory standpoint. He slept like a rock la st night. He indicates that he is much more refreshed today. He denies any shortness of breath or c hest discomfort. He is not coughing up any sputum at this point. Lower extremity swelling and belly swelling have both improved. PHYSICAL EXAMINATION: VITAL SIGNS: Afebrile, pulse 89, blood pressure 120/79, respirations 18, saturation 95% on 2 liters nasal cannula. GENERAL: The patient is awake, alert, in no apparent distress. LUNGS: Dependent crackles are present. There is still prolonged expiratory phase, but there is less rhonchi and wheezing. HEART: Normal rate, regular. ABDOMEN: Soft, nontender, nondistended. Bowel sounds are positive. MUSCULOSKELETAL: No cyanosis or clubbing. There is still 2+ pitting in the bilateral lower extremit ies. NEUROLOGIC: Grossly nonfocal. LABORATORY DATA: WBC 10.0, hemoglobin 15.0, platelets 200,000. Bicarbonate 41, chloride 94. Basic metabolic profile is otherwise unremarkable. Glucose is 117 with normal magnesium. ASSESSMENT: 1. Acute on chronic hypoxic respiratory failure, resolved to baseline. 2. Acute systolic heart failure. 3. Acute on chronic diastolic heart failure. 4. Chronic obstructive pulmonary disease with acute exacerbation secondary to fluid. DISCUSSION AND PLAN: The patient has developed a contraction alkalosis. As such, I will back off on the Lasix to once daily and give him a couple doses of acetazolamide. Pulmonary Critical Care will continue to follow along for the time being. Once he is at euvolemia, he will be optimized to procee d with any type of procedure.
[2018-05-06] MEDS: Potassium Chloride 20 MEQ TAB PO SCH ×2 (09:58→16:50)
[2018-05-06] MEDS: AcetaZOLAMIDE ER 500 MG CAP PO SCH (09:59)
[2018-05-06] MEDS: predniSONE 20 MG TAB PO SCH (09:59)
[2018-05-06] MEDS: Aspirin 81 mg Enteric Coated Tablet PO SCH (09:59)
[2018-05-06] MEDS: Docusate 100 MG CAP PO SCH ×2 (09:59→20:10)
[2018-05-06] MEDS: Famotidine 20 MG TAB PO SCH ×2 (09:59→20:10)
[2018-05-06] MEDS: Multivit, Therapeutic 1 TAB PO SCH (10:01)
[2018-05-06] MEDS: Lisinopril 5 MG TAB PO SCH ×2 (10:01→20:10)
--- NOTE | 2018-05-06 11:49 | PDOC.CTH ---
Cardiology Progress Note - Subjective He is doing much better. He has continued to diurese and is able to lay flat without issues now. - Objective Vital Signs Temp Pulse Resp BP Pulse Ox 05/06/18 07:39 98.1 F 89 18 120/79 95 05/06/18 06:34 87 16 96 05/06/18 06:16 87 20 103/60 94 L 05/06/18 04:00 98.3 F 92 20 131/75 90 L 05/06/18 02:48 94 L 05/06/18 00:19 98 16 Admit Weight 305 lb 4.8 oz Weight 295 lb 11.2 oz 05/05/18 05/06/18 05/07/18 06:59 06:59 06:59 Intake Total 1090 1675 Output Total 3175 4325 Balance -2295 -8264 - Physical Examination General/Neuro: alert & oriented x3, NAD Neck: no JVD present Lungs: unlabored respirations, other: (Reduced breath sounds bilat.) Heart: RRR Abdomen: NT/ND Extremities: + edema B (1+) - Telemetry Telemetry Rhythm: NSR - Labs Result Diagrams: 05/05/18 05:11 05/06/18 07:01 Troponin/CKMB Troponin I 0.057 ng/mL (< 0.028) H 05/02/18 15:42 - Assessment/Plan 1. New onset dilated CM EF at 25-30%. 2. Acute systolic heart failure. 3. COPD 4. Hx of bilateral pulmonary embolism. PLAN: - Back off lasix to PO. - C tomorrow once catheters arrive. - Continue ACEI for now. Will add BB before discharge. - Will need lifevest before discharge. Will discuss with family after C. - [facility] in the morning.
[2018-05-06 12:06] VITALS: BMI 30.2
--- NOTE | 2018-05-06 23:40 | PDOC.PN ---
- Subjective Encounter Start Date: 05/06/18 Encounter Start Time: 11:00 Patient seen and examined for CHF. No new complaints. No overnight events. Able to lie down flat - Objective Resuscitation Status: Resuscitation Status FULL:Full Resuscitation MAR Reviewed: Yes Vital Signs & Weight: Vital Signs (12 hours) Temp Pulse Resp BP Pulse Ox 05/06/18 20:10 98.6 F 94 20 94 L 05/06/18 20:04 98.6 F 94 20 137/77 95 05/06/18 18:25 87 16 90 L 05/06/18 16:44 98.1 F 86 18 131/73 96 05/06/18 14:09 83 16 94 L 05/06/18 12:23 98 F 66 18 121/72 96 Weight Admit Weight 305 lb 4.8 oz Weight 295 lb 11.2 oz I&O: 05/05/18 05/06/18 05/07/18 06:59 06:59 06:59 Intake Total 1090 1675 1125 Output Total 3175 4325 2300 Balance -2085 -2650 -1175 Result Diagrams: 05/05/18 05:11 05/06/18 07:01 EKG Reviewed by me: Yes (Tele SR) Phys Exam - Physical Examination Constitutional: NAD Respiratory: no wheezing, no rhonchi Cardiovascular: RRR, no rub Gastrointestinal: soft, non-tender, positive bowel sounds Musculoskeletal: edema present (improving) Neurological: moves all 4 limbs Dx/Plan - Plan DVT proph w/SCDs IMPRESSION: 1. Acute on chronic systolic-diastolic heart failure exacerbation / Acute on chronic hypoxic respiratory failure. improving 2. Contraction alkalosis 3. NSVT 4. Chronic kidney disease stage 2. 5. Coagulopathy prob due to Vit K def/Hepatic congestion - improved 6. Elevated tropo due to CHF 7. Depression. 8. Hypertension. 9. Abdominal distention and bloating probably secondary to ascites. 10. Chronic obstructive pulmonary disease with exacerbation. 11. Chronic respiratory failure, on home oxygen/Obesity BMI 31.1 PLAN: IV Lasix changed to once daily Cont Acetazolamida Cath in AM Cont ACEI On Prednisone No Betablocker due to COPD Cont current meds as below Lifevest at dc No Lovenox per patient req Change diet to regular per patient req Review of Systems - Review of Systems Respiratory: negative: Cough, Dry, Shortness of Breath, Hemoptysis, SOB with Excertion, Pleuritic Pain, Sputum, Wheezing Cardiovascular: negative: chest pain, palpitations, orthopnea, paroxysmal nocturnal dyspnea, edema, light headedness, other - Medications/Allergies Allergies/Adverse Reactions: Allergies Allergy/AdvReac Type Severity Reaction Status Date / Time No Known Allergies Allergy Verified 11/03/17 14:32 Medications: Current Medications Acetaminophen (Tylenol) 650 mg PO Q6H PRN PRN Reason: Headache/Fever or Pain Acetazolamide (Diamox Sequels) 500 mg PO DAILY [facility] Stop: 05/08/18 09:01 Last Admin: 05/06/18 09:59 Dose: 500 mg Al Hydroxide/Mg Hydroxide (Maalox) 30 ml PO Q6H PRN PRN Reason: Heartburn or Indigestion Albuterol/Ipratropium (Duoneb) 3 ml NEB [id number] PRN PRN Reason: SOB &/or Wheezing Last Admin: 05/05/18 07:10 Dose: 3 ml Albuterol/Ipratropium (Duoneb) 3 ml NEB [id number] [facility] Last Admin: 05/06/18 18:25 Dose: 3 ml Aspirin (Ecotrin) 81 mg PO DAILY [facility] Last Admin: 05/06/18 09:59 Dose: 81 mg Calcium Carbonate (Tums) 1,000 mg PO Q4H PRN PRN Reason: Heartburn or Indigestion Docusate Sodium (Colace) 100 mg PO BID [facility] Last Admin: 05/06/18 20:10 Dose: Not Given Famotidine (Pepcid) 20 mg PO BID [facility] Last Admin: 05/06/18 20:10 Dose: 20 mg Furosemide (Lasix) 80 mg SLOW IVP 0600 [facility] Lactulose (Lactulose) 20 gm PO DAILYPRN PRN PRN Reason: Constipation Lisinopril (Zestril) 5 mg PO BID [facility] Last Admin: 05/06/18 20:10 Dose: 5 mg Magnesium Hydroxide (Milk Of Magnesium) 30 ml PO DAILYPRN PRN PRN Reason: Constipation Mometasone Furoate/Formoterol Fumar (Dulera 200 Mcg/5 Mcg Inhaler) 2 puff INH BID-RT [facility] Last Admin: 05/06/18 18:35 Dose: 2 puff Multivitamins (Theragran) 1 tab PO DAILY [facility] Last Admin: 05/06/18 10:01 Dose: 1 tab Nitroglycerin (Nitrostat) 0.4 mg PO Q5MIN PRN PRN Reason: Chest Pain Ondansetron HCl (Zofran Odt) 4 mg PO Q6H PRN PRN Reason: Nausea/Vomiting Ondansetron HCl (Zofran) 4 mg IVP Q6H PRN PRN Reason: Nausea/Vomiting Potassium Chloride (K-Dur) 20 meq PO BID-[facility] Last Admin: 05/06/18 16:50 Dose: 20 meq Prednisone (Prednisone) 40 mg PO QAM-[facility] Stop: 05/08/18 08:01 Last Admin: 05/06/18 09:59 Dose: 40 mg Senna (Senokot) 2 tab PO HSPRN PRN PRN Reason: Constipation Sodium Chloride (Flush - Normal Saline) 10 ml IVF Q12HR [facility] Last Admin: 05/06/18 20:10 Dose: 10 ml Sodium Chloride (Flush - Normal Saline) 10 ml IVF PRN PRN PRN Reason: Saline Flush Last Admin: 05/06/18 06:18 Dose: 10 ml
[2018-05-07] MEDS: Potassium Chloride 20 MEQ TAB PO SCH ×2 (05:51→17:58)
[2018-05-07] MEDS: Aspirin 81 mg Enteric Coated Tablet PO SCH (05:52)
[2018-05-07] MEDS: Famotidine 20 MG TAB PO SCH (05:52)
[2018-05-07] MEDS: predniSONE 20 MG TAB PO SCH (05:53)
[2018-05-07] MEDS: Multivit, Therapeutic 1 TAB PO SCH (05:53)
[2018-05-07] MEDS ORDERED: Furosemide 100 MG/10 ML VIAL SLOW IVP SCH (06:00)
[2018-05-07 06:21] LABS: Anion Gap 11 mmol/L (10-20); BUN (Urea Nitrogen) 21 mg/dL (8.4-25.7); Calc. Creatinine Clearance 180 mL/min (70-130); Calcium 9.2 mg/dL (7.8-10.44); Carbon Dioxide 29 mmol/L (23-31); Chloride 102 mmol/L (98-107); Estimated GFR-MDRD Greater than 90; Glucose 102 mg/dL (80-115); Magnesium 2.3 mg/dL (1.6-2.6); Potassium 4.3 mmol/L (3.5-5.1); Sodium 138 mmol/L (136-145)
[2018-05-07] MEDS: Mometasone/Formoterol 120 PUFF INHALER INH SCH ×2 (07:32→18:32)
[2018-05-07] MEDS ORDERED: Iopamidol 370 76% 100 ML VIAL ONE (08:18)
[2018-05-07] MEDS: AcetaZOLAMIDE ER 500 MG CAP PO SCH (08:20)
[2018-05-07] MEDS: Lisinopril 5 MG TAB PO SCH (08:20)
[2018-05-07] MEDS: Docusate 100 MG CAP PO SCH (08:20)
[2018-05-07] MEDS ORDERED: Lidocaine 1% (PF) 30 ML VIAL ONE (09:20)
[2018-05-07] MEDS ORDERED: Heparin 1000 UNIT/NS 500ML(OR) 1,000 ML ONE (09:20)
[2018-05-07] MEDS ORDERED: Fentanyl 100 MCG/2 ML VIAL ONE (10:08)
[2018-05-07] MEDS ORDERED: Midazolam HCl 2 mg/2 ml Vial ONE (10:09)
[2018-05-07] MEDS ORDERED: Heparin 10,000 UNITS/1 ML VIAL ONE (10:23)
--- NOTE | 2018-05-07 12:10 | PRG ---
DATE OF SERVICE: 05/07/2018 SERVICE: Pulmonary Medicine. INTERVAL HISTORY: The patient is clearly doing a little bit better. His breathing is more comfortab le. He was off oxygen yesterday, but last night, he wore once again. Otherwise, there has been no i nterval change to his condition. OBJECTIVE: VITAL SIGNS: Afebrile, pulse 82, blood pressure 99/65, respirations 18, saturation 94% on 2 liters n donovan cannula. GENERAL: The patient is awake, alert, no apparent distress. LUNGS: Decent air entry. There is no prolonged expiratory phase or wheezing appreciated. There are some dependent crackles there. HEART: Normal rate, regular. ABDOMEN: Soft, nontender, nondistended. Bowel sounds are positive. MUSCULOSKELETAL: No cyanosis or clubbing. There is still trace pitting in the bilateral lower extre mities, but this is drastically improved. NEUROLOGIC: Grossly nonfocal. LABORATORY DATA: Basic metabolic profile is completely unremarkable. The bicarbonate has improved d ramatically to 29. ASSESSMENT: 1. Acute on chronic hypoxic respiratory failure, resolved to baseline. 2. Acute systolic heart failure. 3. Acute on chronic diastolic heart failure. 4. Chronic obstructive pulmonary disease with acute exacerbation secondary to fluid DISCUSSION AND PLAN: The patient is currently optimized to move forward with any type of procedure a s necessary from a lung standpoint. We will continue to gently diurese him down to euvolemia, which he is very close to. I will discontinue the acetazolamide and steroids. Pulmonary will continue to follow along for the time being while we determine what the next course of action is going to be. Ca theterization is currently pending.
--- NOTE | 2018-05-07 13:56 | PDOC.PN ---
- Subjective Encounter Start Date: 05/07/18 Patient seen and examined for CHF. No new complaints. No overnight events - Objective Resuscitation Status: Resuscitation Status FULL:Full Resuscitation MAR Reviewed: Yes Vital Signs & Weight: Vital Signs (12 hours) Temp Pulse Resp BP BP Pulse Ox 05/07/18 08:20 82 99/65 05/07/18 08:00 97.4 F L 82 18 99/65 95 05/07/18 07:31 88 16 92 L 05/07/18 05:50 88 20 103/58 L 05/07/18 03:58 98.3 F 89 20 105/66 93 L 05/07/18 03:16 90 L Weight Admit Weight 305 lb 4.8 oz Weight 293 lb 14.4 oz I&O: 05/06/18 05/07/18 05/08/18 06:59 06:59 06:59 Intake Total 1675 1622 Output Total 4325 3575 Balance -2300 -4383 Result Diagrams: 05/05/18 05:11 05/07/18 05:15 EKG Reviewed by me: Yes (Tele SR) Phys Exam - Physical Examination Constitutional: NAD Neurological: moves all 4 limbs Psychiatric: A&O x 3 Dx/Plan - Plan DVT proph w/SCDs IMPRESSION: 1. Acute on chronic systolic-diastolic heart failure exacerbation / Acute on chronic hypoxic respiratory failure. improving 2. Contraction alkalosis - improved 3. NSVT 4. Chronic kidney disease stage 2. 5. Coagulopathy prob due to Vit K def/Hepatic congestion - improved 6. Elevated tropo due to CHF 7. Depression. 8. Hypertension. 9. Abdominal distention and bloating probably secondary to ascites. 10. Chronic obstructive pulmonary disease with exacerbation. 11. Chronic respiratory failure, on home oxygen/Obesity BMI 31.1 PLAN: BMP in AM Acetazolamide dced Cath today Cont ACEI Prednisone dced No Betablocker due to COPD Cont current meds as below Lifevest at dc No Lovenox per patient req Change diet to regular per patient req Review of Systems - Review of Systems Respiratory: negative: Cough, Dry, Shortness of Breath, Hemoptysis, SOB with Excertion, Pleuritic Pain, Sputum, Wheezing - Medications/Allergies Allergies/Adverse Reactions: Allergies Allergy/AdvReac Type Severity Reaction Status Date / Time No Known Allergies Allergy Verified 11/03/17 14:32 Medications: Current Medications Acetaminophen (Tylenol) 650 mg PO Q6H PRN PRN Reason: Headache/Fever or Pain Al Hydroxide/Mg Hydroxide (Maalox) 30 ml PO Q6H PRN PRN Reason: Heartburn or Indigestion Albuterol/Ipratropium (Duoneb) 3 ml NEB [id number] PRN PRN Reason: SOB &/or Wheezing Last Admin: 05/05/18 07:10 Dose: 3 ml Albuterol/Ipratropium (Duoneb) 3 ml NEB [id number] [facility] Last Admin: 05/07/18 07:31 Dose: 3 ml Aspirin (Ecotrin) 81 mg PO DAILY [facility] Last Admin: 05/07/18 05:52 Dose: 81 mg Calcium Carbonate (Tums) 1,000 mg PO Q4H PRN PRN Reason: Heartburn or Indigestion Docusate Sodium (Colace) 100 mg PO BID [facility] Last Admin: 05/07/18 08:20 Dose: Not Given Famotidine (Pepcid) 20 mg PO BID [facility] Last Admin: 05/07/18 05:52 Dose: 20 mg Furosemide (Lasix) 80 mg PO DAILY-[facility] Lactulose (Lactulose) 20 gm PO DAILYPRN PRN PRN Reason: Constipation Lisinopril (Zestril) 5 mg PO BID [facility] Last Admin: 05/07/18 08:20 Dose: Not Given Magnesium Hydroxide (Milk Of Magnesium) 30 ml PO DAILYPRN PRN PRN Reason: Constipation Mometasone Furoate/Formoterol Fumar (Dulera 200 Mcg/5 Mcg Inhaler) 2 puff INH BID-RT [facility] Last Admin: 05/07/18 07:32 Dose: 2 puff Multivitamins (Theragran) 1 tab PO DAILY [facility] Last Admin: 05/07/18 05:53 Dose: 1 tab Nitroglycerin (Nitrostat) 0.4 mg PO Q5MIN PRN PRN Reason: Chest Pain Ondansetron HCl (Zofran Odt) 4 mg PO Q6H PRN PRN Reason: Nausea/Vomiting Ondansetron HCl (Zofran) 4 mg IVP Q6H PRN PRN Reason: Nausea/Vomiting Potassium Chloride (K-Dur) 20 meq PO BID-[facility] Last Admin: 05/07/18 05:51 Dose: 20 meq Senna (Senokot) 2 tab PO HSPRN PRN PRN Reason: Constipation Sodium Chloride (Flush - Normal Saline) 10 ml IVF Q12HR [facility] Last Admin: 05/07/18 08:12 Dose: 10 ml Sodium Chloride (Flush - Normal Saline) 10 ml IVF PRN PRN PRN Reason: Saline Flush Last Admin: 05/06/18 06:18 Dose: 10 ml
--- NOTE | 2018-05-07 17:33 | PDOC.CTH ---
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 His breathing is back to normal. - Objective Vital Signs Temp Pulse Resp BP BP Pulse Ox 05/07/18 14:29 87 16 94 L 05/07/18 11:55 86 18 113/67 05/07/18 11:15 97.4 F L 83 16 115/70 94 L 05/07/18 08:20 82 99/65 05/07/18 08:00 97.4 F L 82 18 99/65 95 05/07/18 07:31 88 16 92 L 05/07/18 05:50 88 20 103/58 L Admit Weight 305 lb 4.8 oz Weight 293 lb 14.4 oz 05/06/18 05/07/18 05/08/18 06:59 06:59 06:59 Intake Total 1675 1622 240 Output Total 4325 3575 Balance -2820 -0103 240 - Physical Examination General/Neuro: alert & oriented x3, NAD Neck: no JVD present Lungs: CTA, unlabored respirations Heart: RRR Abdomen: NT/ND Extremities: + edema B (1+) - Telemetry Telemetry Rhythm: NSR - Labs Result Diagrams: 05/05/18 05:11 05/07/18 05:15 Troponin/CKMB Troponin I 0.057 ng/mL (< 0.028) H 05/02/18 15:42 - Assessment/Plan 1. Non ischemic CM 2. CAD, branching disease 3. Alcohol use 4. HTN 5. COPD PLAN: - Continue medical therapy. - Continue ASA/Statin/ACEI, no BB due to borderline low BP and COPD. - We discussed about a lifevest and he is agreeable. - May discharge home with PO lasix BID and once lifevest set up complete. - Follow up in the office in 1 month.
[2018-05-07 18:12] VITALS: BP 120/62; TEMP 97.6
[2018-05-07] MEDS ORDERED: Atorvastatin Calcium 10 MG TAB PO SCH (21:00)
[2018-05-08] MEDS ORDERED: Furosemide 80 MG TAB PO SCH (07:30)
--- NOTE | 2018-05-08 17:31 | DIS ---
DATE OF ADMISSION: 05/02/2018 DATE OF DISCHARGE: 05/07/2018 DISCHARGE DISPOSITION: Home. FOLLOWUP: 1. Follow up with primary care physician, Dr. Hagan in 1 week. 2. Follow up with Cardiology, Dr. Martinez on 05/31/2018 at 2:00 p.m. 3. Follow up with outpatient [facility] Failure [facility]. ALLERGIES: No known drug allergies. The patient was seen on the day of discharge. Denies any new complaints. No chest pain, shortness o f breath, palpitations. DISCHARGE MEDICATIONS: Lasix 40 mg b.i.d., lisinopril 5 mg b.i.d., Lipitor 10 mg at bedtime, aspirin 81 mg daily, Anoro Ellipta 1 inhalation daily, albuterol nebulization as needed. BRIEF HOSPITAL COURSE: The patient is a 67-year-old male with congestive heart failure and COPD, who presented to the hospital with shortness of breath. Please refer to the history and physical dated 05/02/2018 for further details. The patient was admitted to the hospital with a diagnosis of congestive heart failure exacerbation. He was started on IV diuretics with good response. The patient was seen by Cardiology, Dr. Martinez as well as Pulmonary, Dr. Colmenares. His weight on the day of discharge is 293 pounds compared to 305 po unds on admission. On the day of discharge, a cardiac catheterization was performed that showed 90% ostial disease in the D2 with 70% ostial lesion in RPDA. He has been cleared by consultants for disc harge. Echocardiogram showed left ventricular ejection fraction of 25%-30%. [facility]. The patient has been extensively counseled on congestive heart failure. FINAL DIAGNOSES: 1. Acute on chronic systolic/diastolic heart failure exacerbation secondary to nonischemic cardiomyo misti. 2. Acute on chronic hypoxic respiratory failure. 3. Chronic obstructive pulmonary disease with acute exacerbation secondary to fluid overload. 4. Contraction alkalosis. The patient received 1 dose of acetazolamide. 5. Nonsustained ventricular tachycardia. No beta blockers were started due to chronic obstructive p ulmonary disease. 6. Chronic kidney disease stage 2. 7. Coagulopathy, probably secondary to vitamin K deficiency versus hepatic vascular congestion. He received 2 doses of vitamin K with correction of INR from 2.5 to 1.1. Repeat PT, INR after a week wi ll be beneficial. 8. Elevated troponin secondary to congestive heart failure/questionable demand ischemia. 9. Depression. 10. Hypertension. 11. Abdominal distention, probably secondary to ascites. 12. Chronic respiratory failure on home oxygen. 13. Obesity with a BMI of 31.1. Plan of care was discussed with the patient. He stated understanding.
== END 2018-05-07 18:50 | disposition home or self-care (01) | DRG 286 ==
LOC: ERS 08:21 → ERHOLD 09:18 → 2NO 16:52
PROVIDERS: ADMIT Internal Medicine; ATTEND Internal Medicine
PROC: 4A023N7 Measurement of Cardiac Sampling and Pressure, Left Heart, Percutaneous Approach (ICD-10-PCS; principal; 2018-05-07)
PROC: B2111ZZ Fluoroscopy of Multiple Coronary Arteries using Low Osmolar Contrast (ICD-10-PCS; 2018-05-07)
PROC: B2151ZZ Fluoroscopy of Left Heart using Low Osmolar Contrast (ICD-10-PCS; 2018-05-07)
DX: I13.0 Hypertensive heart and chronic kidney disease with heart failure and stage 1 through stage 4 chronic kidney disease, or unspecified chronic kidney disease (principal); J96.21 Acute and chronic respiratory failure with hypoxia; I50.43 Acute on chronic combined systolic (congestive) and diastolic (congestive) heart failure; E87.3 Alkalosis; D68.9 Coagulation defect, unspecified; R18.8 Other ascites; I47.2 Ventricular tachycardia; J44.1 Chronic obstructive pulmonary disease with (acute) exacerbation; Z99.81 Dependence on supplemental oxygen; F32.9 Major depressive disorder, single episode, unspecified; N18.2 Chronic kidney disease, stage 2 (mild); I25.10 Atherosclerotic heart disease of native coronary artery without angina pectoris; E56.1 Deficiency of vitamin K; E66.9 Obesity, unspecified; Z68.31 Body mass index [BMI] 31.0-31.9, adult; R79.89 Other specified abnormal findings of blood chemistry; I42.9 Cardiomyopathy, unspecified; Z87.891 Personal history of nicotine dependence
CPT/HCPCS: 36415; 80048; 80053; 83735; 84100; 85014; 85018; 85025; 85049; 93005; 93306; 93458; 93798; 94640; 94760; 99152; 99153; A4216; C1769; J1644; J1940; J2001; J2250; J3010; J3430; J3475; J7050; J7506; J7620; J7626

== ENCOUNTER 2018-06-09 10:20 | Observation (INO) | payer MEDICARE ==
[2018-06-09 16:28] LABS: Troponin I 0.019 ng/mL (< 0.028)
[2018-06-09] MEDS ORDERED: Enoxaparin Sodium 40 MG/0.4 ML SYRINGE SC SCH (17:12)
[2018-06-09] MEDS ORDERED: Ondansetron HCl/PF 4 MG/2 ML Vial IVP PRN (17:12)
[2018-06-09] MEDS ORDERED: Ondansetron ODT 4 MG TAB PO PRN (17:12)
[2018-06-09] MEDS ORDERED: Albuterol Sulfate 2.5 mg/3 ml Neb NEB PRN (17:12)
[2018-06-09] MEDS ORDERED: HYDROcodone/Acetaminophen 5/325 mg Tablet PO PRN ×2 (17:12)
[2018-06-09] MEDS ORDERED: Acetaminophen 325 MG TAB PO PRN (17:12)
[2018-06-09] MEDS ORDERED: Acetaminophen 650 MG Suppository PR PRN (17:12)
[2018-06-09 17:38] VITALS: BMI 30.6
[2018-06-09] MEDS: Sodium Chloride 0.9% 1,000 ML IV SCH (18:55)
[2018-06-09] MEDS: Famotidine 20 MG TAB PO SCH (19:53)
[2018-06-10] MEDS ORDERED: Enoxaparin Sodium 40 MG/0.4 ML SYRINGE SC SCH (09:00)
[2018-06-10] MEDS ORDERED: Aspirin 81 mg Enteric Coated Tablet PO SCH (09:00)
[2018-06-10] MEDS ORDERED: Non-Formulary Item 1 EACH (Umeclidinium Brm/Vilanterol Tr [Anoro Ellipta] 1 INH) IH SCH (09:00)
[2018-06-10 09:29] LABS: #Eosinphils 0.1 thou/uL (0.0-0.7); #Lymphocytes 1.1 thou/uL (1.20-3.40); #Monocytes 0.5 thou/uL (0.11-0.59); #Neutrophils 4.8 thou/uL (1.40-6.50); %Basophils 0.6 % (0.0-1.0); %Eosinophils 2.2 % (0.0-10.0); %Lymphocytes 17.2 % (21.0-51.0); %Monocytes 7.8 % (0.0-10.0); %Neutrophils 72.3 % (42.0-75.0); Hemoglobin 14.2 g/dL (14.0-18.0); Mean Corpuscular HGB CONC 32.5 g/dL (32.0-36.0); Mean Corpuscular Hemoglobin 31.9 pg (27.0-31.0); Mean Corpuscular Volume 98.1 fL (78.0-98.0); Mean Platelet Volume 7.1 fL (7.4-10.4); Platelet Count 181 thou/uL (130-400); RBC Distribution Width 12.2 % (11.5-14.5); Red Blood Cell (RBC) Count 4.47 mill/uL (4.70-6.10); White Blood Cell (WBC) Count 6.7 thou/uL (4.8-10.8)
[2018-06-10 09:49] LABS: Anion Gap 8 mmol/L (10-20); BUN (Urea Nitrogen) 15 mg/dL (8.4-25.7); Calc. Creatinine Clearance 164 mL/min (70-130); Calcium 8.8 mg/dL (7.8-10.44); Carbon Dioxide 31 mmol/L (23-31); Chloride 101 mmol/L (98-107); Estimated GFR-MDRD 89; Glucose 131 mg/dL (80-115); Magnesium 1.7 mg/dL (1.6-2.6); Potassium 4.5 mmol/L (3.5-5.1); Sodium 135 mmol/L (136-145)
[2018-06-10] MEDS: Famotidine 20 MG TAB PO SCH (09:53)
[2018-06-10 12:11] VITALS: BP 92/58
[2018-06-10] MEDS: Sodium Chloride 0.9% 1,000 ML IV SCH (13:34)
--- NOTE | 2018-06-10 15:55 | CON ---
DATE OF CONSULTATION: 06/10/2018 CARDIOLOGY CONSULTATION PRIMARY LINUX ADMINISTRATOR: Dr. Shadi Martinez. REASON FOR CONSULTATION: Hypotension. HISTORY OF PRESENT ILLNESS: Mr. Patiño is a delightful 68-year-old gentleman with idiopathic dilated cardiomyopathy. He has a LifeVest on. He has no significant atherosclerotic obstruction of the lee nary arteries. He was doing well and has been started on Entresto. He said he really feels well whe n he takes Entresto. Over the weekend, it was noted that he had some more swelling. Therefore, furo semide dose was increased from 40 mg to 80 mg a day. He did not feel as well on Thursday. Yesterday, he has had markedly decreased blood pressure and took his temperature is low. He was brought here an d found to have dehydration. He is feeling better today. He did not receive the furosemide today. No chest pain or pressure. PHYSICAL EXAMINATION: VITAL SIGNS: Blood pressure is still low 92/58, pulse in the 60s. LUNGS: Clear. CARDIAC: Normal S1, normal S2. ABDOMEN: Soft, nontender. EXTREMITIES: No edema. ASSESSMENT: 1. Dilated cardiomyopathy with some volume depletion. 2. History of some chronic obstructive pulmonary disease. PLAN: 1. Reduce furosemide back to 40 mg once a day. 2. Take Entresto 1/2 pill twice a day. Try to take it 12 hours apart. 3. Okay to go home to follow up with Dr. Martinez as an outpatient. Ultimately, ideally would be able to start on beta-blockers at least low dose.
[2018-06-10 16:15] VITALS: TEMP 97.7
--- NOTE | 2018-06-12 17:29 | EKG ---
Test Reason : Blood Pressure : / mmHG Vent. Rate : 081 BPM Atrial Rate : 081 BPM P-R Int : 196 ms QRS Dur : 156 ms QT Int : 452 ms P-R-T Axes : 040 199 029 degrees QTc Int : 525 ms Sinus rhythm with frequent , and consecutive Premature ventricular complexes Right bundle branch block Possible Inferior infarct , age undetermined Anteroseptal infarct , age undetermined Abnormal ECG Confirmed by JERI FINK, ELENA Rojo ([id number]), deputy editor in chief THOMAS LOBATO ([id number]) on 06/12/2018 5:28:32 PM Referred By: Confirmed By:ELENA WILCOX MD
== END 2018-06-10 16:31 | disposition home or self-care (01) ==
LOC: ERS 10:20 → 2SW 15:48
PROVIDERS: ADMIT Internal Medicine Infectious Disease; ATTEND Internal Medicine Infectious Disease
DX: I95.9 Hypotension, unspecified (principal); I42.0 Dilated cardiomyopathy; J44.9 Chronic obstructive pulmonary disease, unspecified; Z79.899 Other long term (current) drug therapy
CPT/HCPCS: 80048; 83735; 84484; 85025; 93005; 94640 ×2; 94760; 96360; 96361 ×2; 96372; 97139; 99285; G0378; 36415; J1650; J7620

== ENCOUNTER 2018-11-22 11:48 | Inpatient (IN) | payer MEDICARE ==
[~2018-11-22 11:48] MED LIST: ISOVUE-370 76%-LOCM 1 ML ONE
[2018-11-22 12:36] LABS: #Basophils 0.1 thou/uL (0.0-0.2); #Eosinphils 0.1 thou/uL (0.0-0.7); #Lymphocytes 0.7 thou/uL (1.20-3.40); #Monocytes 0.7 thou/uL (0.11-0.59); #Neutrophils 6.1 thou/uL (1.40-6.50); %Basophils 1.7 % (0.0-1.0); %Eosinophils 1.9 % (0.0-10.0); %Lymphocytes 9.5 % (21.0-51.0); %Monocytes 8.8 % (0.0-10.0); %Neutrophils 78.1 % (42.0-75.0); ALT (SGPT) 24 U/L (8-55); AST (SGOT) 17 U/L (5-34); Albumin 2.8 g/dL (3.4-4.8); Alkaline Phosphatase 83 U/L (40-150); BUN (Urea Nitrogen) 11 mg/dL (8.4-25.7); Bilirubin, Total 0.5 mg/dL (0.2-1.2); Calc. Creatinine Clearance 0 mL/min (70-130); Calcium 8.8 mg/dL (7.8-10.44); Estimated GFR-MDRD Greater than 90; Globulin 2.2 g/dL (2.4-3.5); Glucose 160 mg/dL (80-115); Hemoglobin 14.1 g/dL (14.0-18.0); Lipase 23 U/L (8-78); Mean Corpuscular HGB CONC 31.8 g/dL (32.0-36.0); Mean Corpuscular Hemoglobin 32.3 pg (27.0-31.0); Mean Platelet Volume 6.6 fL (7.4-10.4); Platelet Count 340 thou/uL (130-400); RBC Distribution Width 12.4 % (11.5-14.5); Red Blood Cell (RBC) Count 4.36 mill/uL (4.70-6.10); White Blood Cell (WBC) Count 7.7 thou/uL (4.8-10.8)
[2018-11-22 12:52] LABS: Anion Gap 11 mmol/L (10-20); Carbon Dioxide 39 mmol/L (23-31); Chloride 94 mmol/L (98-107); Potassium 3.6 mmol/L (3.5-5.1); Sodium 140 mmol/L (136-145)
[2018-11-22 12:59] LABS: CKMB 1.6 ng/mL (0-6.6)
--- NOTE | 2018-11-22 13:44 | RAD ---
CHEST 1 VIEW: Date: 11/22/18 HISTORY: Fluid overload. COMPARISON: 05/02/18. FINDINGS: Left ICD. Bilateral pleural effusions and some bilateral vascular congestion, as well as some linear parenchymal changes and what appear to be some bullous changes, evidence for chronic change. Biapical pleural thickening, greater on the right side. IMPRESSION: Evidence for bilateral pleural effusions and some vascular congestion with bilateral bullous and othe r chronic changes, including biapical pleural thickening, with little change in the appearance from p rior study. POS: T[facility]
[2018-11-22] MEDS ORDERED: Lorazepam 2 MG/ML VIAL ONE (14:20)
--- NOTE | 2018-11-22 15:56 | CT ---
CT PULMONARY ANGIOGRAM WITH IV CONTRAST AND 3D POSTPROCESSING: Date: 11/22/18 HISTORY: Hypoxia, shortness of breath, and chest pain. COMPARISON: 05/02/18. FINDINGS: There is good contrast opacification of the pulmonary arterial vasculature with filling defects in th e posterior branch of the left lower lobe artery. The thoracic aorta is well opacified without aneury sm or dissection. Vascular calcifications are present. No pericardial effusions seen. There is a mode rate left and mild right pleural effusion with adjacent atelectatic change/consolidation. No pneumoth oraces are identified. There are degenerative changes in the spine. Pleural calcifications are presen t. IMPRESSION: Findings are suspicious for pulmonary embolism in a small branch of the left posterior lower lobe art waleska. Discussed over the telephone with ER physician, Dr. Reina Christy, at 1503 hours. CODE CR.
[2018-11-22] MEDS ORDERED: Enoxaparin Sodium 100 MG/ML SYRINGE ONE (16:01)
[2018-11-22] MEDS ORDERED: Enoxaparin Sodium 30 MG/0.3 ML SYRINGE ONE (16:01)
[2018-11-22 17:11] LABS: Troponin I 0.023 ng/mL (< 0.028)
[2018-11-22] MEDS ORDERED: Ondansetron PF 4 MG/2 ML Vial IVP PRN ×2 (19:32→19:50)
[2018-11-22] MEDS ORDERED: Ondansetron ODT 4 MG TAB SL PRN (19:32)
[2018-11-22] MEDS ORDERED: Sodium Chloride 0.9% 1,000 ML IV SCH (19:45)
[2018-11-22] MEDS ORDERED: Albuterol Sulfate 2.5 mg/3 ml Neb NEB PRN (19:50)
[2018-11-22] MEDS ORDERED: Senokot S 8.6-50 MG TAB PO PRN (19:50)
[2018-11-22] MEDS ORDERED: Acetaminophen 650 MG Suppository PR PRN (19:50)
[2018-11-22] MEDS ORDERED: Ondansetron ODT 4 MG TAB PO PRN (19:50)
[2018-11-22] MEDS ORDERED: Guaifenesin DM 100-10/5 ML UDCUP PO PRN (19:50)
[2018-11-22 20:03] LABS: Troponin I 0.036 ng/mL (< 0.028)
[2018-11-22] MEDS: Sacubitril 24.5 MG/Valsartan 25.5 MG TABLET PO SCH (21:12)
[2018-11-22] MEDS: Atorvastatin Calcium 10 MG TAB PO SCH (21:12)
[2018-11-22] MEDS: Enoxaparin Sodium 120 MG/0.8 ML SYRINGE SC SCH (21:22)
--- NOTE | 2018-11-22 22:43 | ULT ---
ULTRASOUND BILATERAL LOWER EXTREMITY VENOUS DOPPLER: History: Lower extremity edema and pain. History of prior DVT. Comparison: Ultrasound lower extremity, 2016. Technique: Real-time grayscale, color doppler and spectral analysis of the bilateral lower extremity venous system was performed. The common femoral, femoral, proximal portions of the greater saphenous and deep femoral veins as well as the popliteal and posterior tibial veins were interrogated. FINDINGS: There is normal flow, augmentation and compression. There is a moderate left lower extremity edema. IMPRESSION: Lower extremity edema without deep venous thrombosis. POS: [facility]
[2018-11-22 22:46] VITALS: BMI 29.5
--- NOTE | 2018-11-23 02:09 | HP ---
PRIMARY CARE PHYSICIAN: Dr. Hagan. CHIEF COMPLAINT: Shortness of breath and dyspnea on exertion. HISTORY OF PRESENT ILLNESS: This is a 68-year-old white male with a known history of COPD on chronic home oxygen, chronic systolic and diastolic congestive heart failure, and previous pulmonary embolisms back in 2016, treated with 6 months of Coumadin, not currently on anticoagulation. He reports that for the last week, he has been severely dyspneic with exertion. He usually uses 2.5 L of oxygen at home. For the last week, he has not been able to ambulate more than a few feet without severe dyspnea, so he went into his primary care doctor's office. He also noted that he had increasing edema to his lower extremities. His primary care doctor put him on increased Lasix, did some blood work, and follow up. Today, the patient reports that he had a decrease in his weight after the diuresis. Weight was back down to normal, though still has some swelling in his lower extremities, especially his left side, but still very dyspneic on exertion, and so his primary care doctor sent him over to the emergency room. In the ER, he was found to be hypoxic even on his home oxygen, which had to be bumped up some. He had a CT angio that did show a small pulmonary embolism in the left lower lobe. He was given full-dose Lovenox in the emergency room, also had an elevated brain natriuretic peptide of 187, which is actually much better than during his previous exacerbation of CHF, actually was close to his more recent baseline. He was given a DuoNeb in the emergency room. PAST MEDICAL HISTORY: 1. Chronic obstructive pulmonary disease on home oxygen. 2. Chronic systolic and diastolic congestive heart failure, most recent echocardiogram with an ejection fraction of 25% to 30%. 3. Hypertension. 4. Hyperlipidemia. 5. Previous pulmonary embolisms. 6. Previous frequent PVCs, status post defibrillator. PAST SURGICAL HISTORY: Defibrillator placement. SOCIAL HISTORY: The patient reports that he has quit smoking in the last year. No alcohol or illicit drug use. He is a and lives with his new girlfriend. His medical power of trust and estates attorney would be his daughter, Peyton Waddell. FAMILY HISTORY: Significant for diabetes in his dad and brother and sister requiring pacemaker placement. ALLERGIES: NO KNOWN DRUG ALLERGIES. CURRENT MEDICATIONS: Not updated in the computer, but as far as the patient remembers; 1. Symbicort 2 puffs once or twice a day. 2. Lasix 40 mg daily. 3. Valsartan, unknown dose daily. 4. Aspirin 81 mg daily. 5. Entresto 24/26 mg one-half tablet daily. 6. Anoro Ellipta 62.5/25 one puff inhaled daily. 7. Albuterol as needed. 8. Atorvastatin 10 mg at nighttime. REVIEW OF SYSTEMS: CONSTITUTIONAL: No fevers. He has had some chills. EYES: No double vision or blurred vision. ENT: No congestion, drainage, or sore throat. PULMONARY: He has had some increased cough, productive of some thick mucus plugs. No wheezing. He has had the shortness of breath, dyspnea as per HPI. CARDIOVASCULAR: No chest pain. No palpitations or racing heart. GASTROINTESTINAL: No abdominal pain. No nausea or vomiting. No diarrhea or constipation. GENITOURINARY: No dysuria or hematuria. MUSCULOSKELETAL: No muscle aches or joint pains. EXTREMITIES: He has the edema as per HPI. SKIN: He has had some reddish rash to his right foot for the last month or so. It is not itchy and not painful. NEUROLOGIC: No numbness, tingling, or focal weakness. He does get some cramping in his right pinky finger on and off. PHYSICAL EXAMINATION: VITAL SIGNS: Blood pressure 110/72, pulse 96, respirations 20, temperature 99.0, O2 saturation running between 90% and 92% on 4 L while I was in the room, he would desat into the 80s if he talked a lot. GENERAL: This is a well-developed, well-nourished white male, in no acute distress. HEENT: Pupils are equal, round, and reactive to light. Oropharynx clear without lesions, erythema, or exudate. NECK: Supple. No lymphadenopathy. No thyroid nodules or enlargement. No JVD. HEART: Regular rate and rhythm. No murmurs, rubs, or gallops. LUNGS: He had an occasional wheeze, but decent breath sounds throughout. No increased work of breathing. GASTROINTESTINAL: Abdomen is soft, obese, and nontender to palpation. Normoactive bowel sounds. No hepatosplenomegaly or other masses. EXTREMITIES: The patient has 1+ pitting edema to bilateral lower extremities. A little worse on the left than the right. He does have some redness to the medial aspect of the right insole into one of the toes. This is blanchable, not warm, has a fairly clear edge, a little bit of scaling to it. No excoriations. Nontender to palpation. SKIN: See extremity exam above. No other lesions noted. NEUROLOGIC: Intact strength and sensation in all extremities. No facial droop. PSYCHIATRIC: Alert and oriented x3. Normal mood and affect. LABORATORY DATA: CBC grossly within normal limits. Complete metabolic panel is notable for chloride of 94, carbon dioxide of 39, glucose of 160, serum total protein of 5, and albumin of 2.8. Lipase was negative. The rest of his complete metabolic panel is normal. Troponin was indeterminate at 0.029, recheck was 0.023, CK-MB was negative. Creatine kinase was normal. Brain natriuretic peptide was 187; however, that is the best it has been in the last 2 years, had gotten up to a 1000 during the middle of his most recent exacerbation. CT of the chest and thorax with contrast shows findings suspicious for pulmonary embolism in the small branch of the left posterior lower lobe artery. EKG in the emergency room did show paced rhythm at 101 beats per minute with unifocal premature ventricular complexes. ASSESSMENT: 1. Recurrent pulmonary embolism. We will put the patient on full-dose Lovenox and will eventually need chronic anticoagulation. We will consult Dr. 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 2. Chronic obstructive pulmonary disease exacerbation. We will continue the patient's inhaled steroids and give p.r.n. nebs. 3. Acute on chronic congestive heart failure. The patient actually does not appears to have cut most of the extra fluid off at home with oral Lasix. I will give him another day of IV diuresis to finish him off and then he can go back to just once a day Lasix. 4. Lower extremity edema, likely due to his congestive heart failure, but we will check for deep venous thrombosis with ultrasounds. 5. Hyperlipidemia. We will resume the patient's statin. 6. Gastrointestinal prophylaxis. We will put the patient on Protonix once a day. CODE STATUS: I did discuss with the patient, he is a full code. Should he be incapacitated, his daughter, Peyton Waddell, would be his medical decision maker. Job ID: [id number]
[2018-11-23 05:45] LABS: #Eosinphils 0.1 thou/uL (0.0-0.7); #Lymphocytes 1.1 thou/uL (1.20-3.40); #Monocytes 0.9 thou/uL (0.11-0.59); #Neutrophils 4.9 thou/uL (1.40-6.50); %Basophils 0.3 % (0.0-1.0); %Eosinophils 2.1 % (0.0-10.0); %Lymphocytes 15.6 % (21.0-51.0); %Monocytes 12.2 % (0.0-10.0); %Neutrophils 69.8 % (42.0-75.0); Hemoglobin 13.1 g/dL (14.0-18.0); Mean Corpuscular Hemoglobin 32.5 pg (27.0-31.0); Mean Platelet Volume 6.6 fL (7.4-10.4); Platelet Count 292 thou/uL (130-400); RBC Distribution Width 12.4 % (11.5-14.5); Red Blood Cell (RBC) Count 4.03 mill/uL (4.70-6.10); White Blood Cell (WBC) Count 7.1 thou/uL (4.8-10.8)
[2018-11-23] MEDS: Furosemide 40 MG/4 ML VIAL SLOW IVP SCH ×2 (05:55→13:07)
[2018-11-23 06:06] LABS: BUN (Urea Nitrogen) 11 mg/dL (8.4-25.7); Calc. Creatinine Clearance 195 mL/min (70-130); Calcium 8.8 mg/dL (7.8-10.44); Estimated GFR-MDRD Greater than 90; Glucose 99 mg/dL (80-115)
[2018-11-23 06:15] LABS: Anion Gap 17 mmol/L (10-20); Carbon Dioxide 33 mmol/L (23-31); Chloride 94 mmol/L (98-107); Potassium 3.5 mmol/L (3.5-5.1); Sodium 140 mmol/L (136-145)
[2018-11-23] MEDS: Sacubitril 24.5 MG/Valsartan 25.5 MG TABLET PO SCH ×2 (08:58→20:15)
[2018-11-23] MEDS: Aspirin 81 mg Enteric Coated Tablet PO SCH (08:58)
[2018-11-23] MEDS: Enoxaparin Sodium 120 MG/0.8 ML SYRINGE SC SCH (08:59)
[2018-11-23] MEDS ORDERED: VALSARTAN PO SCH (09:00)
[2018-11-23] MEDS ORDERED: SACUBITRIL PO SCH (09:00)
--- NOTE | 2018-11-23 12:49 | PDOC.PN ---
- Subjective Encounter Start Date: 11/23/18 Encounter Start Time: 12:47 Mr. Patiño was seen today in follow-up of Pulmonary Embolus. He is complaining of some pain on his right side. He does not complain of feeling short of breath. - Objective Resuscitation Status - Order Detail: 11/22/18 19:10 Resuscitation Status Routine Resuscitation Status: FULL: Full Resuscitation Discussed with: Patient MAR Reviewed: Yes Vital Signs & Weight: Vital Signs (12 hours) Temp Pulse Pulse Resp BP BP BP 11/23/18 10:20 92 112/68 94/54 L 11/23/18 10:19 90 112/68 94/54 L 11/23/18 08:00 97.7 F 69 18 119/58 L 11/23/18 06:56 75 16 11/23/18 04:00 99.0 F 90 20 106/56 L Pulse Ox Pulse Ox 11/23/18 10:20 93 L 11/23/18 10:19 93 L 11/23/18 08:00 94 L 11/23/18 06:56 93 L 11/23/18 04:00 96 Weight Weight 288 lb 6.4 oz I&O: 11/22/18 11/23/18 11/24/18 06:59 06:59 06:59 Intake Total 514 Output Total 875 Balance -361 Result Diagrams: 11/23/18 04:51 11/23/18 04:51 Phys Exam - Physical Examination HEENT: PERRLA Respiratory: no wheezing, no rales, no rhonchi, clear to auscultation bilateral Cardiovascular: RRR, no significant murmur, no rub Gastrointestinal: soft, non-tender, positive bowel sounds Musculoskeletal: pulses present, edema present Varicose veins, and Neurological: non-focal, normal sensation Dx/Plan (1) Pulmonary embolism Code(s): I26.99 - OTHER PULMONARY EMBOLISM WITHOUT ACUTE COR PULMONALE Status : Acute (2) Acute respiratory failure with hypoxia Code(s): J96.01 - ACUTE RESPIRATORY FAILURE WITH HYPOXIA Status: Acute (3) COPD exacerbation Code(s): J44.1 - CHRONIC OBSTRUCTIVE PULMONARY DISEASE W (ACUTE) EXACERBATION Status: Acute (4) Hypertension Code(s): I10 - ESSENTIAL (PRIMARY) HYPERTENSION Status: Chronic (5) Chronic systolic heart failure Code(s): I50.22 - CHRONIC SYSTOLIC (CONGESTIVE) HEART FAILURE Status: Acute - Plan * Recurrent PE- he tells me he has spoken with Dr. Colmenares, and he plans to change him to an oral agent- he believes it is Elquis or Xarelto * HTN- blood pressure is low to low normal * COPD- stable * Acute on Chronic systolic heart failure- decompensated- continue IV LAsix
[2018-11-23] MEDS: Acetaminophen 325 MG TAB PO PRN ×2 (13:07→22:06)
[2018-11-23] MEDS ORDERED: Potassium Chloride 20 MEQ TAB PO SCH (14:00)
--- NOTE | 2018-11-23 14:48 | CON ---
DATE OF CONSULTATION: 11/23/2018 SERVICE: Pulmonary Medicine. REASON FOR CONSULTATION: Pulmonary embolism. HISTORY OF PRESENT ILLNESS: The patient is a 68-year-old white male with past medical history significant for pulmonary embolism. He also has fairly significant heart failure. He has had increasing lower extremity swelling for about 2 weeks. He had increasing shortness of breath, dyspnea on exertion, and orthopnea. He did not have any pleuritic-type chest discomfort or chest pains. He presented to the emergency department because of this progressive increasing shortness of breath. CTA demonstrated a pulmonary embolism in the left lower lobe. I do believe this is real. Otherwise, he is in his usual state of health. He did not have any fevers or chills. He has not been coughing or bringing up any sputum other than some white frothy phlegm in the morning. He has been increasing amount of liquids that he has been drinking here recently because he heard it was healthy to do. This is despite the fact that he has been counseled to restrict his fluid intake to 1.5 L on a daily basis. There were no sick contacts recently. Otherwise, he is in his usual state of health. PAST MEDICAL HISTORY: 1. COPD. 2. Chronic hypoxic respiratory failure. 3. Chronic systolic and diastolic heart failure (25% EF). 4. Hypertension. 5. Dyslipidemia. 6. History of PE. PAST SURGICAL HISTORY: AICD placement. SOCIAL HISTORY: Negative for alcohol, tobacco, or illicit drug use. He had a prior 50-pack year history of smoking. He has no exposure to chemicals, dust, asbestos, or tuberculosis. FAMILY HISTORY: Noncontributory. ALLERGIES: NO KNOWN DRUG ALLERGIES. MEDICATIONS: List of his inpatient medications was reviewed. No specific updates were made. Of note, he takes Anoro at home and should not be on Symbicort in conjunction with this. REVIEW OF SYSTEMS: General, head, ears, eyes, nose, throat, cardiovascular, respiratory, GI, , musculoskeletal, neurologic, and skin are negative except as mentioned in the HPI. PHYSICAL EXAMINATION: VITAL SIGNS: Afebrile, pulse 85, blood pressure 114/62, respirations 18, and saturation 94% on 2.5 L nasal cannula. GENERAL: The patient is awake and alert, in no apparent distress. LUNGS: Excellent air entry. There is a prolonged expiratory phase. There is minimal wheezing, and crackles noted. No rhonchi. HEART: Normal rate and regular. ABDOMEN: Soft, nontender, and nondistended. Bowel sounds are positive. MUSCULOSKELETAL: No cyanosis or clubbing. There is 1 to 2+ pitting in the bilateral lower extremities. NEUROLOGIC: Grossly nonfocal. LABORATORY DATA: WBC 7.1, hemoglobin 13.1, platelets 292,000. Basic metabolic profile and liver function studies are unremarkable. Troponin is gently up trending to 0.036. BNP 187, which is actually quite good for Mr. Patiño. Liver function studies are unremarkable. Influenza A and B are negative. IMAGING STUDIES: CTA demonstrates interstitial fullness consistent with slight volume overload. There are bilateral pleural effusions, which are quite small. There is an infiltrate in the left lower lobe. There is also PE going toward the infiltrate. It is blunted out and I do not see any obvious air bronchograms. My suspicion is that we are dealing with an area of pulmonary infarction given that he is asymptomatic to infection. Ultrasound of bilateral lower extremities is without a DVT. ASSESSMENT: 1. Acute on chronic hypoxic respiratory failure. 2. Chronic obstructive pulmonary disease without current exacerbation. 3. Acute on chronic systolic and diastolic heart failure. 4. Acute pulmonary embolism, recurrent with likely pulmonary infarction. DISCUSSION AND PLAN: I have discussed the risks and benefits of pursuing a blood thinner versus no blood thinner. We have also talked about the different risks associated with a direct oral anticoagulant versus something like Coumadin, which he has tolerated in the past. He would like to try to get on a direct acting medication. He understands that this puts him at increased risk of bleeding. If the bleeding is significant and happens in a place where he cannot put his finger on it to stop the bleeding, I told him for the rest of his life he will need to go to the emergency department. Additionally, he understands that life-threatening bleed can happen inside of the brain. If that happens, we will not have very good way of turning off this direct oral anticoagulant. If that were the case, he could have a catastrophic stroke that could result in . That being said, he is okay with proceeding with this medication. If his insurance company allows him to be on Eliquis, we will initiate that medication. Pulmonary/Critical Care will continue to follow along for the time being. 70 minutes have been devoted to this patient in various activities. I personally reviewed all imaging studies and laboratory data noted within this document. For fifty percent of this time, I was interacting with the patient at the bedside or coordinating care with the care team. For the remainder of the time I was immediately available to the patient in the hospital unit. Job ID: [id number] MTDD
[2018-11-23 15:13] LABS: Hemoglobin 13.3 g/dL (14.0-18.0); Platelet Count 289 thou/uL (130-400)
[2018-11-23 15:32] LABS: Calc. Creatinine Clearance 182 mL/min (70-130); Estimated GFR-MDRD Greater than 90
--- NOTE | 2018-11-23 18:44 | CON ---
DATE OF CONSULTATION: 11/23/2018 REASON FOR CONSULTATION: Heart failure. HISTORY OF PRESENT ILLNESS: Mr. Patiño is a very pleasant 68-year-old white gentleman, who comes to the hospital for increased shortness of breath. He states for the last week, maybe even longer than that he has been slowly getting more short-winded with increased lower extremity edema. He got to the point where yesterday he felt he could not lay flat on his back, so he decided to come in for evaluation as he felt he was choking every time he would lay down. He was found to be in acute exacerbation of his chronic systolic heart failure. He was on reduced EF at about 30% to 35%. He has an AICD in place. He has ischemic cardiomyopathy that is non-revascularizable. He had a CT of the chest on admission that showed a very small pulmonary embolism in left lower lobe, so he was started on full anticoagulation with Lovenox. Eventually transferred over to [facility]. Currently, he is feeling a little bit better. PAST MEDICAL HISTORY: 1. Chronic systolic heart failure. 2. Ischemic cardiomyopathy. 3. Multivessel coronary artery disease, non-revascularizable. 4. Hypertension. 5. Hyperlipidemia. 6. History of pulmonary embolism in the past. 7. Status post AICD. PAST SURGICAL HISTORY: 1. AICD placement. 2. Left heart catheterization. SOCIAL HISTORY: Recently, he quit smoking last year, but he started smoking again and recently quit again according to his report. He continues to use alcohol every now and then. No drug use. FAMILY HISTORY: Diabetes. ALLERGIES: NO KNOWN DRUG ALLERGIES. OUTPATIENT MEDICATIONS: 1. Symbicort. 2. Lasix . 3. Entresto 24/26 tablet twice a day. 4. Anoro Ellipta. 5. Albuterol. 6. Atorvastatin 10 mg at bedtime. REVIEW OF SYSTEMS: A 12-point review of systems was done and was found to be negative unless stated in the history of present illness. PHYSICAL EXAMINATION: VITAL SIGNS: Temperature 98.2, pulse 85, respiratory rate 18, saturations 94% on 2.5 L nasal cannula, blood pressure 114/62. GENERAL: Awake, alert, and oriented x3, no distress. HEENT: Normocephalic and atraumatic. NECK: Supple. LUNGS: Have reduced breath sounds bilaterally. CARDIOVASCULAR: S1 and S2. No S3 or S4. No murmurs. ABDOMEN: Soft. Positive bowel sounds. EXTREMITIES: 2+ edema. SKIN: Warm and dry. LABORATORY DATA: Laboratory work was reviewed. CBC and CMP were reviewed. BNP was 187. Troponin 0.[address] of the chest was reviewed. He has a small subsegmental PE and a small branch of the left posterior lower lobe artery. Lower extremity venous ultrasound showed no evidence of DVT. ASSESSMENT/PLAN: 1. Acute on chronic systolic heart failure. 2. Acute pulmonary embolism. 3. Chronic systolic heart failure, acute on chronic. 4. Coronary artery disease stable. 5. Ischemic cardiomyopathy. PLAN: 1. Agree with IV diuresis. 2. Agree with full anticoagulation per Pulmonary, Dr. Colmenares already on the case. 3. I think most of his symptoms are cardiac in nature. The small pulmonary embolism is really not enough to cause the amount of breathing issues that I see at that time. Most likely, he has been accumulating a little bit of fluid in the last few days and pulmonary embolism just aggravated things enough for him to have to come to the hospital. 4. Agree with lifetime anticoagulation given his recurrent DVT, PE. 5. We will follow. Job ID: [id number]
[2018-11-23] MEDS: Apixaban 5 MG TAB PO SCH (20:15)
[2018-11-23] MEDS: Atorvastatin Calcium 10 MG TAB PO SCH (20:15)
[2018-11-24] MEDS: Furosemide 40 MG/4 ML VIAL SLOW IVP SCH (05:22)
[2018-11-24 07:30] LABS: BUN (Urea Nitrogen) 10 mg/dL (8.4-25.7); Calc. Creatinine Clearance 181 mL/min (70-130); Calcium 8.8 mg/dL (7.8-10.44); Estimated GFR-MDRD Greater than 90; Glucose 103 mg/dL (80-115); Magnesium 2.1 mg/dL (1.6-2.6)
[2018-11-24 07:39] LABS: Anion Gap 15 mmol/L (10-20); Carbon Dioxide 35 mmol/L (23-31); Chloride 93 mmol/L (98-107); Potassium 3.8 mmol/L (3.5-5.1); Sodium 139 mmol/L (136-145)
[2018-11-24] MEDS: Sacubitril 24.5 MG/Valsartan 25.5 MG TABLET PO SCH ×2 (08:13→20:49)
[2018-11-24] MEDS: Apixaban 5 MG TAB PO SCH ×2 (08:13→20:49)
[2018-11-24] MEDS: Aspirin 81 mg Enteric Coated Tablet PO SCH (08:13)
--- NOTE | 2018-11-24 12:48 | PDOC.CTH ---
Cardiology Progress Note - Subjective SOB has improved minimally. He has diuresed well. - Objective Vital Signs Temp Pulse Resp BP Pulse Ox 11/24/18 11:30 97.9 F 76 18 111/58 L 96 11/24/18 07:10 99.6 F 89 19 126/68 95 11/24/18 06:50 92 L 11/24/18 06:47 84 18 92 L 11/24/18 03:18 99.3 F 89 16 143/55 H 92 L Weight 287 lb 3.2 oz 11/23/18 11/24/18 11/25/18 06:59 06:59 06:59 Intake Total 514 794 Output Total 875 575 Balance -361 219 - Physical Examination General/Neuro: alert & oriented x3, NAD Neck: no JVD present Lungs: other: (Reduced breath sound bilat) Heart: RRR Abdomen: soft Extremities: + edema B (trace, improved.) - Telemetry Telemetry Rhythm: NSR - Labs Result Diagrams: 11/23/18 15:02 11/24/18 06:12 Troponin/CKMB CK-MB (CK-2) 1.6 ng/mL (0-6.6) 11/22/18 12:08 Troponin I 0.036 ng/mL (< 0.028) H 11/22/18 19:31 - Assessment/Plan 1. Acute on chronic systolic heart failure. 2. Acute PE, recurrent. 3. COPD. 4. Multivessel CAD, non revascularizable. PLAN: - Diuresed well. - Will cut back on Lasix to home dose. - Continue full anticoagulation.
[2018-11-24] MEDS: Furosemide 40 MG TAB PO SCH (13:41)
[2018-11-24] MEDS ORDERED: Potassium Chloride 20 MEQ TAB PO SCH (13:45)
[2018-11-24] MEDS ORDERED: predniSONE 20 MG TAB PO SCH (13:45)
--- NOTE | 2018-11-24 14:18 | PRG ---
DATE OF SERVICE: 11/24/2018 SERVICE: Pulmonary Medicine. INTERVAL HISTORY: The patient is doing fine from respiratory standpoint. Breathing comfortably. No events overnight occurred. He is having increasing work of breathing, a little bit more wheezing today compared to yesterday. He denies any current fevers or chills. His cough is still present and still bringing up a little bit of white frothy sputum. PHYSICAL EXAMINATION: VITAL SIGNS: Afebrile, pulse 76, blood pressure 111/58, respirations 18, and saturation 96% on 2 L nasal cannula. GENERAL: The patient is awake and alert, in no apparent distress. LUNGS: Decent air entry. There is wheezing present today, where there was not yesterday. There is a prolonged expiratory phase, which is a touch worse as well. Crackles predominate. HEART: Normal rate. Regular. ABDOMEN: Soft, nontender, and nondistended. Bowel sounds are positive. MUSCULOSKELETAL: No cyanosis or clubbing. Pitting edema is present in bilateral lower extremities, but improving. NEUROLOGIC: Nonfocal. LABORATORY DATA: Hemoglobin 13.3. Basic metabolic profile is otherwise unremarkable. Magnesium 2.1. Bicarb 35 and gently up-trending. Influenza A and B remain negative. ASSESSMENT: 1. Acute on chronic hypoxic respiratory failure. 2. Chronic obstructive pulmonary disease with acute exacerbation, mild. 3. Acute on chronic systolic and diastolic heart failure. 4. Acute pulmonary embolism, recurrent, with likely pulmonary infarction. DISCUSSION AND PLAN: I will give the patient a 5-day course of Augmentin because I strictly cannot prove that this infiltrate does not have an infection in it. I have also put him on a 5-day course of prednisone. I will give him a dose of potassium today and will give a laboratory holiday tomorrow morning. From a purely respiratory perspective, he is stable for transition out of the hospital. 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 Job ID: [id number]
[2018-11-24] MEDS: Acetaminophen 325 MG TAB PO PRN (16:53)
--- NOTE | 2018-11-24 16:53 | PDOC.PN ---
- Subjective Encounter Start Date: 11/24/18 Encounter Start Time: 11:45 Mr. Patiño was seen today in follow-up of CHF exacerbation, and PE. He does not have any new complaints. He says he is breathing better. - Objective Resuscitation Status - Order Detail: 11/22/18 19:10 Resuscitation Status Routine Resuscitation Status: FULL: Full Resuscitation Discussed with: Patient KAL Reviewed: Yes Vital Signs & Weight: Vital Signs (12 hours) Temp Pulse Resp BP Pulse Ox 11/24/18 15:00 98.7 F 75 19 130/65 95 11/24/18 14:05 88 18 95 11/24/18 11:30 97.9 F 76 18 111/58 L 96 11/24/18 07:10 99.6 F 89 19 126/68 95 11/24/18 06:50 92 L 11/24/18 06:47 84 18 92 L Weight Weight 287 lb 3.2 oz I&O: 11/23/18 11/24/18 11/25/18 06:59 06:59 06:59 Intake Total 514 794 Output Total 875 575 Balance -361 219 Result Diagrams: 11/23/18 15:02 11/24/18 06:12 Phys Exam - Physical Examination HEENT: PERRLA Respiratory: wheezing present + occasional wheeze, and some coarse breath sounds Cardiovascular: RRR, no significant murmur, no rub Gastrointestinal: soft, non-tender, no distention, positive bowel sounds Musculoskeletal: pulses present, edema present + pedal edema bilaterally Dx/Plan (1) Pulmonary embolism Code(s): I26.99 - OTHER PULMONARY EMBOLISM WITHOUT ACUTE COR PULMONALE Status : Acute (2) Acute respiratory failure with hypoxia Code(s): J96.01 - ACUTE RESPIRATORY FAILURE WITH HYPOXIA Status: Acute (3) COPD exacerbation Code(s): J44.1 - CHRONIC OBSTRUCTIVE PULMONARY DISEASE W (ACUTE) EXACERBATION Status: Acute (4) Hypertension Code(s): I10 - ESSENTIAL (PRIMARY) HYPERTENSION Status: Chronic (5) Chronic systolic heart failure Code(s): I50.22 - CHRONIC SYSTOLIC (CONGESTIVE) HEART FAILURE Status: Acute - Plan * PE- continue loading dose of Eliquis * Acute on chronic systolic heart failure exacerbation- he has improved with diuresis * COPD- stable. * HTN- blood pressure is stable * He is close to his baseline - possible home tomorrow
[2018-11-24] MEDS ORDERED: Sodium Chloride 0.9% 10 ML ONE (20:32)
[2018-11-24] MEDS: Atorvastatin Calcium 10 MG TAB PO SCH (20:49)
[2018-11-24] MEDS: Amoxicillin/Potassium Clav 875 MG TAB PO SCH (20:49)
[2018-11-25] MEDS ORDERED: predniSONE 20 MG TAB PO SCH (08:00)
[2018-11-25] MEDS: Amoxicillin/Potassium Clav 875 MG TAB PO SCH (08:27)
[2018-11-25] MEDS: Sacubitril 24.5 MG/Valsartan 25.5 MG TABLET PO SCH (08:27)
[2018-11-25] MEDS: Apixaban 5 MG TAB PO SCH (08:28)
[2018-11-25] MEDS: Furosemide 40 MG TAB PO SCH (08:28)
[2018-11-25] MEDS: Aspirin 81 mg Enteric Coated Tablet PO SCH (08:28)
--- NOTE | 2018-11-25 15:48 | PRG ---
DATE OF SERVICE: 11/25/2018 SERVICE: Pulmonary Medicine. INTERVAL HISTORY: The patient is doing outstanding from respiratory standpoint. He is breathing comfortably. He indicates that he feels comfortable going home today. His breathing is actually opened up quite nicely. Otherwise, he has no specific complaints. He denies having any hemoptysis. PHYSICAL EXAMINATION: VITAL SIGNS: Afebrile, pulse 72, blood pressure 121/65, respirations 20, and saturation 97% on 3 L nasal cannula. GENERAL: The patient is awake and alert, in no apparent distress. LUNGS: Excellent air entry. There is a slightly prolonged expiratory phase, but the wheezing has extinguished. There are no crackles today. HEART: Normal rate and regular. ABDOMEN: Soft, nontender, and nondistended. Bowel sounds are positive. MUSCULOSKELETAL: No cyanosis or clubbing. No pitting in the bilateral lower extremities. NEUROLOGIC: Grossly nonfocal. ASSESSMENT: 1. Acute on chronic hypoxic respiratory failure. 2. Chronic obstructive pulmonary disease with acute exacerbation, mild. 3. Acute on chronic systolic and diastolic heart failure. 4. Pulmonary embolism, recurrent with likely pulmonary infarction. 5. Obstructive sleep apnea, suspected. DISCUSSION AND PLAN: The patient is stable for transition out of the hospital. He can complete a 5-day course of Augmentin and prednisone. I will have him follow up with me in clinic in the outpatient setting for consideration of an in-lab polysomnogram. If he remains in-house, I will continue to follow, but my suspicion is that he will be discharged today. Job ID: [id number] MTDD
[2018-11-25 15:52] VITALS: BP 139/69; TEMP 98
--- NOTE | 2018-11-26 02:53 | DIS ---
DATE OF ADMISSION: 11/22/2018 DATE OF DISCHARGE: 11/25/2018 DISCHARGE DISPOSITION: Home. PRIMARY CARE PHYSICIAN: Dr. Hagan. DISCHARGE DIAGNOSES: 1. Pulmonary embolism. 2. Acute on chronic systolic heart failure. 3. Chronic obstructive pulmonary disease. 4. Hyperlipidemia. DISCHARGE MEDICATIONS: Include; 1. Lipitor 10 mg at bedtime. 2. Aspirin 81 mg daily. 3. Eliquis 10 mg twice a day for 21 days, then followed by 5 mg twice a day. 4. Augmentin 875 mg twice a day for 5 days. 5. Chantix 1 tablet twice a day. 6. CoQ10 200 mg daily. 7. Entresto 24/ one tablet twice a day. 8. Multivitamin 1 tablet daily. 9. Mucinex 600 mg twice daily. 10. Lasix 40 mg twice a day. 11. Albuterol inhaler daily. PROCEDURES DONE DURING THE ADMISSION: The patient had a CT angiogram of the chest showing findings suspicious for pulmonary embolism in a small branch of the left posterior lower lobe artery. The patient also had a venogram showing extensive edema throughout the deep venous system. CODE STATUS: Full code. ALLERGIES: NO KNOWN DRUG ALLERGIES. HOSPITAL COURSE: Mr. Patiño is a 68-year-old gentleman who presented to the emergency room with complaints of difficulty breathing as well as increased lower extremity edema. He was concerned that he could have recurrent DVT; however, the ultrasound was negative for DVT, but he did in fact have a pulmonary embolus. He was started on anticoagulation for this. He has a history of previous PE in the past and as a result, he will need to be on lifelong anticoagulation. He also was found to have an acute on chronic systolic heart failure and was diuresed due to increased volume overload. He was seen by both his metal filer and his auto service advisor during his hospital stay and was also felt to have maybe a mild COPD exacerbation. This is the reason for discharge on Augmentin as well as a short course of prednisone. He will also be discharged on Eliquis for the pulmonary embolism and the rest of his medications remained the same. Job ID: [id number]
[2018-12-01] MEDS ORDERED: Apixaban 5 MG TAB PO SCH (09:00)
== END 2018-11-25 13:48 | disposition home or self-care (01) | DRG 175 ==
LOC: ERS 11:48 → ERHOLD 16:23 → 2NO 19:18
PROVIDERS: ADMIT Emergency Medicine; ATTEND Emergency Medicine
DX: I26.99 Other pulmonary embolism without acute cor pulmonale (principal); J96.01 Acute respiratory failure with hypoxia; I50.23 Acute on chronic systolic (congestive) heart failure; J44.1 Chronic obstructive pulmonary disease with (acute) exacerbation; E78.5 Hyperlipidemia, unspecified; I11.0 Hypertensive heart disease with heart failure; I25.5 Ischemic cardiomyopathy; I25.10 Atherosclerotic heart disease of native coronary artery without angina pectoris; Z99.81 Dependence on supplemental oxygen; Z95.810 Presence of automatic (implantable) cardiac defibrillator; Z87.891 Personal history of nicotine dependence; Z79.82 Long term (current) use of aspirin
CPT/HCPCS: 36415; 71045; 71275; 80048; 80053; 82550; 82553; 83690; 83735; 83880; 84439; 84443; 84484; 85025; 87804; 93005; 93798; 93970; 94640; 94760; 96372; 96374; J1650; J1940; J2060; J7620; Q9966

== ENCOUNTER 2019-03-01 19:30 | Outpatient (CLI) | payer MEDICARE | END 2019-03-01 19:31 | disposition home or self-care (01) | LOC: SLEEPLAB 19:30 | PROVIDERS: ATTEND Internal Medicine | DX: G47.33 Obstructive sleep apnea (adult) (pediatric) (principal); I11.0 Hypertensive heart disease with heart failure; I50.9 Heart failure, unspecified; J44.9 Chronic obstructive pulmonary disease, unspecified; E66.9 Obesity, unspecified; K21.9 Gastro-esophageal reflux disease without esophagitis; R51 Headache; R53.83 Other fatigue; R06.83 Snoring; R35.1 Nocturia; R09.02 Hypoxemia; Z68.37 Body mass index [BMI] 37.0-37.9, adult | CPT/HCPCS: 95810 ==

== ENCOUNTER 2019-05-21 20:30 | Outpatient (CLI) | payer MEDICARE | END 2019-05-21 20:31 | disposition home or self-care (01) | LOC: SLEEPLAB 20:30 | PROVIDERS: ATTEND Internal Medicine | DX: G47.33 Obstructive sleep apnea (adult) (pediatric) (principal); R53.83 Other fatigue; R51 Headache; K21.9 Gastro-esophageal reflux disease without esophagitis; R06.83 Snoring; R35.1 Nocturia; I11.0 Hypertensive heart disease with heart failure; I50.9 Heart failure, unspecified; J44.9 Chronic obstructive pulmonary disease, unspecified; R09.02 Hypoxemia; E66.9 Obesity, unspecified; Z68.37 Body mass index [BMI] 37.0-37.9, adult | CPT/HCPCS: 95811 ==

== ENCOUNTER 2020-02-22 09:35 | Outpatient (CLI) | payer MEDICARE ==
--- NOTE | 2020-02-22 10:20 | RAD ---
EXAM: Chest PA and lateral: HISTORY: Dyspnea. Shortness of breath, x3 COMPARISON: 11/22/2018, 03/31/2018 FINDINGS: Pacing device: Stable left-sided transvenous pacemaker Heart: Normal cardiac silhouette Aorta: Unremarkable Pulmonary vessels: Normal Costophrenic angles: Bilateral pleural effusions Lungs: Persistent bibasilar parenchymal changes. Pneumothorax: No pneumothorax Osseous structures: No osseous abnormalities IMPRESSION: Congestive heart failure.
== END 2020-02-22 09:36 | disposition home or self-care (01) ==
LOC: BICRAD 09:35
PROVIDERS: ATTEND Internal Medicine Critical Care Medicine
DX: R06.00 Dyspnea, unspecified (principal); I50.9 Heart failure, unspecified
CPT/HCPCS: 71046

== ENCOUNTER 2021-06-16 17:36 | Emergency (ER) | payer MEDICARE ==
[2021-06-16 18:42] LABS: #Lymphocytes 1.5 thou/uL (1.20-3.40); #Monocytes 0.7 thou/uL (0.11-0.59); #Neutrophils 11.1 thou/uL (1.40-6.50); %Basophils 0.1 % (0.0-1.0); %Eosinophils 0.2 % (0.0-10.0); %Lymphocytes 11.2 % (21.0-51.0); %Neutrophils 83.5 % (42.0-75.0); Hemoglobin 12.4 g/dL (14.0-18.0); Mean Corpuscular HGB CONC 31.3 g/dL (32.0-36.0); Mean Corpuscular Volume 92.6 fL (78.0-98.0); Mean Platelet Volume 6.6 fL (7.4-10.4); Platelet Count 338 thou/uL (130-400); Red Blood Cell (RBC) Count 4.27 mill/uL (4.70-6.10); White Blood Cell (WBC) Count 13.3 thou/uL (4.8-10.8)
[2021-06-16 18:58] LABS: ALT (SGPT) 11 U/L (8-55); AST (SGOT) 17 U/L (5-34); Alkaline Phosphatase 88 U/L (40-110); Anion Gap 9 mmol/L (10-20); BUN (Urea Nitrogen) 24 mg/dL (8.4-25.7); Bilirubin, Total 0.2 mg/dL (0.2-1.2); Calc. Creatinine Clearance 0 mL/min (70-130); Carbon Dioxide 37 mmol/L (23-31); Chloride 101 mmol/L (98-107); Glucose 151 mg/dL (80-115); Potassium 4.2 mmol/L (3.5-5.1); Sodium 143 mmol/L (136-145)
[2021-06-16 19:44] LABS: INR-International Normal Ratio 1.2; PTT 34.8 sec (22.9-36.1); Prothrombin Time 15.7 sec (12.0-14.7)
== END 2021-06-16 20:51 | disposition home or self-care (01) ==
LOC: ERS 17:36
DX: K59.00 Constipation, unspecified (principal); K80.80 Other cholelithiasis without obstruction; I50.9 Heart failure, unspecified; D64.9 Anemia, unspecified; Z79.899 Other long term (current) drug therapy; Z79.01 Long term (current) use of anticoagulants; I11.0 Hypertensive heart disease with heart failure; J44.9 Chronic obstructive pulmonary disease, unspecified; Z87.891 Personal history of nicotine dependence
CPT/HCPCS: 74176; 80053; 85025; 85610; 85730

== ENCOUNTER 2021-08-04 23:18 | Inpatient (IN) | payer MEDICARE, OTHER ==
[2021-08-05 01:59] VITALS: BMI 24.7
[2021-08-05] MEDS ORDERED: Ondansetron PF 4 MG/2 ML Vial IVP PRN (05:40)
[2021-08-05 06:57] LABS: BUN (Urea Nitrogen) 25 mg/dL (8.4-25.7); Calc. Creatinine Clearance 172 mL/min (70-130); Calcium 8.9 mg/dL (7.8-10.44); Glucose 201 mg/dL (80-115)
[2021-08-05 07:04] LABS: Troponin I 0.036 ng/mL (< 0.028)
[2021-08-05 07:06] LABS: Anion Gap 13 mmol/L (10-20); Carbon Dioxide 40 mmol/L (23-31); Chloride 88 mmol/L (98-107); Potassium 3.9 mmol/L (3.5-5.1); Sodium 137 mmol/L (136-145)
[2021-08-05] MEDS ORDERED: Dextrose 50% Abboject 50 ML SYRINGE SLOW IVP PRN (09:17)
[2021-08-05] MEDS ORDERED: Dextrose 5% in Water 1,000 ML IV PRN (09:17)
[2021-08-05] MEDS ORDERED: HumaLOG 300 UNITS/3 ML VIAL SC PRN (09:17)
[2021-08-05 09:29] LABS: Actual Bicarbonate (HCO3a) 46.4 mEq/L (22-28); Base Excess (BEa) 18.1 mEq/L (-2.0 to +3.0); Calcium, Ionized (arterial) 1.17 mmol/L (1.12-1.30); Carboxyhemoglobin (COHb) 0.8 gm% (0.0-3.0); Hemoglobin (Hb) 13.2 g/dL (14.0-18.0); Potassium - ABG Lab 3.77 mmol/L (3.70-5.30); pH, Arterial 7.42 (7.35-7.45)
[2021-08-05 09:33] LABS: CO2 Tension 72.6 mmHg (35.0-45.0); Puncture Site RRA
[2021-08-05 09:51] LABS: #Eosinphils 0.1 thou/uL (0.0-0.7); #Lymphocytes 0.8 thou/uL (1.20-3.40); #Monocytes 0.6 thou/uL (0.11-0.59); #Neutrophils 8.6 thou/uL (1.40-6.50); %Basophils 0.1 % (0.0-1.0); %Eosinophils 0.7 % (0.0-10.0); %Lymphocytes 7.9 % (21.0-51.0); %Neutrophils 85.3 % (42.0-75.0); Hemoglobin 13.1 g/dL (14.0-18.0); Mean Corpuscular HGB CONC 32.1 g/dL (32.0-36.0); Mean Corpuscular Hemoglobin 31.3 pg (27.0-31.0); Mean Corpuscular Volume 97.5 fL (78.0-98.0); Mean Platelet Volume 6.2 fL (7.4-10.4); Platelet Count 193 thou/uL (130-400); RBC Distribution Width 15.4 % (11.5-14.5)
[2021-08-05 10:15] LABS: Troponin I 0.043 ng/mL (< 0.028)
[2021-08-05] MEDS ORDERED: Apixaban 5 MG TAB PO SCH (11:30)
[2021-08-05] MEDS ORDERED: Tamsulosin HCl 0.4 MG CAP PO SCH (11:30)
[2021-08-05] MEDS ORDERED: Montelukast Sodium 10 mg Tablet PO SCH (11:30)
[2021-08-05] MEDS ORDERED: Sotalol HCl 80 MG TAB PO SCH (11:30)
[2021-08-05] MEDS ORDERED: predniSONE 20 MG TAB PO SCH (11:30)
[2021-08-05] MEDS ORDERED: Polyethylene Glycol 3350 17 GM Packet PO SCH (11:30)
[2021-08-05] MEDS ORDERED: Aspirin 81 mg Enteric Coated Tablet PO SCH (11:30)
[2021-08-05] MEDS ORDERED: Albuterol Sulfate 2.5 mg/3 ml Neb NEB PRN (11:43)
[2021-08-05] MEDS: Midodrine HCl 5 MG TAB PO SCH ×2 (13:06→22:03)
[2021-08-05] MEDS: Azithromycin 500 MG in Sodium Chloride 0.9% 250 ML 250 ML IVPB SCH (13:06)
[2021-08-05] MEDS: HumaLOG 300 UNITS/3 ML VIAL SC PRN (17:17)
[2021-08-05] MEDS: Apixaban 5 MG TAB PO SCH (22:03)
[2021-08-06] MEDS ORDERED: diphenhydrAMINE 50 MG/ML VIAL IVP SCH (01:30)
[2021-08-06 05:31] LABS: #Eosinphils 0.1 thou/uL (0.0-0.7); #Lymphocytes 0.8 thou/uL (1.20-3.40); #Monocytes 0.5 thou/uL (0.11-0.59); #Neutrophils 8.1 thou/uL (1.40-6.50); %Eosinophils 0.8 % (0.0-10.0); %Lymphocytes 8.5 % (21.0-51.0); %Monocytes 5.1 % (0.0-10.0); %Neutrophils 85.6 % (42.0-75.0); Hemoglobin 12.3 g/dL (14.0-18.0); Mean Corpuscular HGB CONC 32.1 g/dL (32.0-36.0); Mean Corpuscular Hemoglobin 31.4 pg (27.0-31.0); Mean Corpuscular Volume 97.9 fL (78.0-98.0); Mean Platelet Volume 6.3 fL (7.4-10.4); Platelet Count 168 thou/uL (130-400); RBC Distribution Width 15.5 % (11.5-14.5); White Blood Cell (WBC) Count 9.4 thou/uL (4.8-10.8)
[2021-08-06 05:54] LABS: BUN (Urea Nitrogen) 26 mg/dL (8.4-25.7); Calc. Creatinine Clearance 181 mL/min (70-130); Calcium 8.5 mg/dL (7.8-10.44); Glucose 107 mg/dL (80-115); Magnesium 2.1 mg/dL (1.6-2.6)
[2021-08-06] MEDS: Midodrine HCl 5 MG TAB PO SCH ×3 (05:57→22:23)
[2021-08-06 06:03] LABS: Anion Gap 10 mmol/L (10-20); Carbon Dioxide 39 mmol/L (23-31); Chloride 90 mmol/L (98-107); Potassium 3.8 mmol/L (3.5-5.1); Sodium 135 mmol/L (136-145)
[2021-08-06] MEDS ORDERED: predniSONE 20 MG TAB PO SCH (08:00)
[2021-08-06] MEDS: Apixaban 5 MG TAB PO SCH ×2 (08:59→20:54)
[2021-08-06] MEDS: Tamsulosin HCl 0.4 MG CAP PO SCH (09:00)
[2021-08-06] MEDS: Polyethylene Glycol 3350 17 GM Packet PO SCH (09:00)
[2021-08-06] MEDS ORDERED: Sotalol HCl 80 MG TAB PO SCH (09:00)
[2021-08-06] MEDS: Furosemide 40 MG TAB PO SCH (09:00)
[2021-08-06] MEDS: Aspirin 81 mg Enteric Coated Tablet PO SCH (09:00)
[2021-08-06] MEDS: Montelukast Sodium 10 mg Tablet PO SCH (09:00)
[2021-08-06] MEDS: Acetaminophen 325 MG TAB PO PRN ×2 (09:07→21:57)
[2021-08-06] MEDS: Azithromycin 500 MG in Sodium Chloride 0.9% 250 ML 250 ML IVPB SCH (13:17)
[2021-08-06] MEDS: HumaLOG 300 UNITS/3 ML VIAL SC PRN (13:18)
[2021-08-06] MEDS: predniSONE 20 MG TAB PO SCH (20:54)
[2021-08-06] MEDS: Atorvastatin Calcium 20 MG TAB PO SCH (20:54)
[2021-08-06] MEDS: Sotalol HCl 80 MG TAB PO SCH (20:54)
[2021-08-07 05:25] LABS: #Lymphocytes 0.5 thou/uL (1.20-3.40); #Monocytes 0.3 thou/uL (0.11-0.59); #Neutrophils 8.1 thou/uL (1.40-6.50); %Basophils 0.3 % (0.0-1.0); %Eosinophils 0.5 % (0.0-10.0); %Lymphocytes 5.7 % (21.0-51.0); %Monocytes 3.1 % (0.0-10.0); %Neutrophils 90.3 % (42.0-75.0); Hemoglobin 13.1 g/dL (14.0-18.0); Mean Corpuscular HGB CONC 31.7 g/dL (32.0-36.0); Mean Corpuscular Hemoglobin 30.9 pg (27.0-31.0); Mean Corpuscular Volume 97.4 fL (78.0-98.0); Mean Platelet Volume 6.6 fL (7.4-10.4); Platelet Count 153 thou/uL (130-400); RBC Distribution Width 15.4 % (11.5-14.5); Red Blood Cell (RBC) Count 4.25 mill/uL (4.70-6.10)
[2021-08-07 05:52] LABS: BUN (Urea Nitrogen) 25 mg/dL (8.4-25.7); Calc. Creatinine Clearance 177 mL/min (70-130); Calcium 8.4 mg/dL (7.8-10.44); Glucose 182 mg/dL (80-115)
[2021-08-07 06:01] LABS: Anion Gap 16 mmol/L (10-20); Carbon Dioxide 35 mmol/L (23-31); Chloride 91 mmol/L (98-107); Potassium 3.9 mmol/L (3.5-5.1); Sodium 138 mmol/L (136-145)
[2021-08-07] MEDS: Tamsulosin HCl 0.4 MG CAP PO SCH (09:15)
[2021-08-07] MEDS: Aspirin 81 mg Enteric Coated Tablet PO SCH (09:15)
[2021-08-07] MEDS: Montelukast Sodium 10 mg Tablet PO SCH (09:15)
[2021-08-07] MEDS: Apixaban 5 MG TAB PO SCH ×2 (09:15→20:59)
[2021-08-07] MEDS: Furosemide 40 MG TAB PO SCH (09:15)
[2021-08-07] MEDS: Midodrine HCl 5 MG TAB PO SCH ×3 (09:15→17:04)
[2021-08-07] MEDS: Polyethylene Glycol 3350 17 GM Packet PO SCH (09:16)
[2021-08-07] MEDS: HumaLOG 300 UNITS/3 ML VIAL SC PRN ×2 (11:09→17:04)
[2021-08-07] MEDS: Azithromycin 500 MG in Sodium Chloride 0.9% 250 ML 250 ML IVPB SCH (13:03)
[2021-08-07] MEDS: Sotalol HCl 80 MG TAB PO SCH (20:59)
[2021-08-07] MEDS: Atorvastatin Calcium 20 MG TAB PO SCH (21:00)
[2021-08-07] MEDS: predniSONE 20 MG TAB PO SCH (21:00)
[2021-08-08 05:56] LABS: #Lymphocytes 0.5 thou/uL (1.20-3.40); #Monocytes 0.3 thou/uL (0.11-0.59); #Neutrophils 7.5 thou/uL (1.40-6.50); %Eosinophils 0.3 % (0.0-10.0); %Lymphocytes 5.7 % (21.0-51.0); %Monocytes 3.4 % (0.0-10.0); %Neutrophils 90.5 % (42.0-75.0); Hemoglobin 12.2 g/dL (14.0-18.0); Mean Corpuscular HGB CONC 32.1 g/dL (32.0-36.0); Mean Corpuscular Hemoglobin 31.2 pg (27.0-31.0); Mean Corpuscular Volume 97.2 fL (78.0-98.0); Mean Platelet Volume 6.8 fL (7.4-10.4); Platelet Count 133 thou/uL (130-400); RBC Distribution Width 15.5 % (11.5-14.5); White Blood Cell (WBC) Count 8.3 thou/uL (4.8-10.8)
[2021-08-08] MEDS: Midodrine HCl 5 MG TAB PO SCH ×3 (06:08→20:42)
[2021-08-08 06:18] LABS: BUN (Urea Nitrogen) 24 mg/dL (8.4-25.7); Calc. Creatinine Clearance 165 mL/min (70-130); Calcium 8.4 mg/dL (7.8-10.44); Glucose 182 mg/dL (80-115); Magnesium 2.1 mg/dL (1.6-2.6)
[2021-08-08 06:27] LABS: Anion Gap 11 mmol/L (10-20); Carbon Dioxide 40 mmol/L (23-31); Chloride 92 mmol/L (98-107); Potassium 3.8 mmol/L (3.5-5.1); Sodium 139 mmol/L (136-145)
[2021-08-08] MEDS: Aspirin 81 mg Enteric Coated Tablet PO SCH (08:55)
[2021-08-08] MEDS: Tamsulosin HCl 0.4 MG CAP PO SCH (08:55)
[2021-08-08] MEDS: Apixaban 5 MG TAB PO SCH ×2 (08:55→20:42)
[2021-08-08] MEDS: Montelukast Sodium 10 mg Tablet PO SCH (08:55)
[2021-08-08] MEDS: Polyethylene Glycol 3350 17 GM Packet PO SCH (08:55)
[2021-08-08] MEDS: Furosemide 40 MG TAB PO SCH (08:55)
[2021-08-08] MEDS: HumaLOG 300 UNITS/3 ML VIAL SC PRN (13:04)
[2021-08-08] MEDS: Azithromycin 500 MG in Sodium Chloride 0.9% 250 ML 250 ML IVPB SCH (13:04)
[2021-08-08 20:22] VITALS: BP 130/78; TEMP 98.3
[2021-08-08] MEDS: Sotalol HCl 80 MG TAB PO SCH (20:41)
[2021-08-08] MEDS: predniSONE 20 MG TAB PO SCH (20:41)
[2021-08-08] MEDS: Atorvastatin Calcium 20 MG TAB PO SCH (20:41)
== END 2021-08-08 20:55 | DRG 189 ==
LOC: NEURO 08-05 00:42 → OBSVTOIN 08-05 05:40
PROVIDERS: ADMIT Emergency Medicine; ATTEND Internal Medicine
DX: J96.21 Acute and chronic respiratory failure with hypoxia (principal); I42.0 Dilated cardiomyopathy; I50.42 Chronic combined systolic (congestive) and diastolic (congestive) heart failure; J44.1 Chronic obstructive pulmonary disease with (acute) exacerbation; Z20.822 Contact with and (suspected) exposure to COVID-19; J96.22 Acute and chronic respiratory failure with hypercapnia; Z88.5 Allergy status to narcotic agent; Z79.82 Long term (current) use of aspirin; Z79.52 Long term (current) use of systemic steroids; Z79.899 Other long term (current) drug therapy; Z79.01 Long term (current) use of anticoagulants; Z87.891 Personal history of nicotine dependence; Z82.49 Family history of ischemic heart disease and other diseases of the circulatory system; Z83.3 Family history of diabetes mellitus; R79.89 Other specified abnormal findings of blood chemistry; E11.65 Type 2 diabetes mellitus with hyperglycemia; N40.0 Benign prostatic hyperplasia without lower urinary tract symptoms; Z99.81 Dependence on supplemental oxygen; I25.10 Atherosclerotic heart disease of native coronary artery without angina pectoris; Z95.810 Presence of automatic (implantable) cardiac defibrillator; I48.0 Paroxysmal atrial fibrillation; Z86.711 Personal history of pulmonary embolism; I11.0 Hypertensive heart disease with heart failure; E78.5 Hyperlipidemia, unspecified
CPT/HCPCS: 36415; 36416; 36600; 80048; 82805; 83735; 84484; 85025; 94640; J0456; J1200; J1815; J7050; J7512; J7611; J7620

== ENCOUNTER 2021-08-23 12:17 | Inpatient (IN) | payer OTHER ==
[2021-08-23] MEDS ORDERED: Magnesium 2 GM/50 ML BAG (IN WATER) ONE (12:58)
[2021-08-23 13:07] LABS: #Basophils 0.1 thou/uL (0.0-0.2); #Lymphocytes 0.3 thou/uL (1.20-3.40); #Monocytes 0.3 thou/uL (0.11-0.59); %Basophils 1.8 % (0.0-1.0); %Eosinophils 0.1 % (0.0-10.0); %Lymphocytes 5.3 % (21.0-51.0); %Monocytes 4.3 % (0.0-10.0); %Neutrophils 88.5 % (42.0-75.0); Hemoglobin 11.2 g/dL (14.0-18.0); Mean Corpuscular HGB CONC 32.3 g/dL (32.0-36.0); Mean Corpuscular Hemoglobin 31.8 pg (27.0-31.0); Mean Corpuscular Volume 98.6 fL (78.0-98.0); Mean Platelet Volume 6.3 fL (7.4-10.4); Platelet Count 205 thou/uL (130-400); Red Blood Cell (RBC) Count 3.51 mill/uL (4.70-6.10); White Blood Cell (WBC) Count 5.7 thou/uL (4.8-10.8)
[2021-08-23 13:26] LABS: ALT (SGPT) 49 U/L (8-55); AST (SGOT) 29 U/L (5-34); Albumin 2.7 g/dL (3.4-4.8); Alkaline Phosphatase 97 U/L (40-110); BUN (Urea Nitrogen) 16 mg/dL (8.4-25.7); Bilirubin, Total 0.3 mg/dL (0.2-1.2); Calc. Creatinine Clearance 0 mL/min (70-130); Calcium 8.1 mg/dL (7.8-10.44); Globulin 1.7 g/dL (2.4-3.5); Glucose 169 mg/dL (80-115); Protein, Total 4.4 g/dL (5.8-8.1)
[2021-08-23 13:37] LABS: Anion Gap 13 mmol/L (10-20); Carbon Dioxide 34 mmol/L (23-31); Chloride 97 mmol/L (98-107); Potassium 4.1 mmol/L (3.5-5.1); Sodium 140 mmol/L (136-145)
[2021-08-23] MEDS ORDERED: Cefepime 2 GM VIAL ONE (14:19)
[2021-08-23] MEDS ORDERED: VANCOMYCIN 2 GRAM/400 ML BAG 2 GM in Premix Bag 1 BAG IVPB SCH (14:30)
[2021-08-23] MEDS ORDERED: Albuterol Sulfate 2.5 mg/3 ml Neb NEB PRN (15:28)
[2021-08-23] MEDS ORDERED: Benzonatate 100 MG CAP PO PRN (15:30)
[2021-08-23] MEDS ORDERED: Guaifenesin DM 100-10/5 ML UDCUP PO PRN (15:30)
[2021-08-23] MEDS ORDERED: Ondansetron ODT 4 MG TAB PO PRN (15:33)
[2021-08-23 15:44] LABS: SARS-CoV-2 NAA Rapid Test Not Detected (NotDetected)
[2021-08-23] MEDS ORDERED: Furosemide 40 MG/4 ML VIAL SLOW IVP SCH (16:30)
[2021-08-23 17:14] LABS: Magnesium 2.1 mg/dL (1.6-2.6)
[2021-08-23 17:19] LABS: Troponin I 0.027 ng/mL (< 0.028)
[2021-08-23] MEDS: methylPREDNISolone Sod Succ 40 MG VIAL IVP SCH ×2 (17:55→23:18)
[2021-08-23 20:09] LABS: Troponin I 0.043 ng/mL (< 0.028)
[2021-08-23] MEDS: guaiFENesin ER 600 MG TAB PO SCH (20:31)
[2021-08-23] MEDS: Apixaban 5 MG TAB PO SCH (20:31)
[2021-08-23] MEDS: Midodrine HCl 5 MG TAB PO SCH (20:50)
[2021-08-24] MEDS: Cefepime 2 GM in Sodium Chloride 0.9% 100 ML IVPB SCH ×2 (01:29→14:05)
[2021-08-24] MEDS: methylPREDNISolone Sod Succ 40 MG VIAL IVP SCH ×3 (05:42→17:40)
[2021-08-24] MEDS: Midodrine HCl 5 MG TAB PO SCH ×3 (05:42→21:45)
[2021-08-24 06:22] LABS: #Lymphocytes 0.4 thou/uL (1.20-3.40); #Monocytes 0.2 thou/uL (0.11-0.59); #Neutrophils 4.1 thou/uL (1.40-6.50); %Eosinophils 0.4 % (0.0-10.0); %Monocytes 3.1 % (0.0-10.0); %Neutrophils 87.5 % (42.0-75.0); Hemoglobin 11.4 g/dL (14.0-18.0); Mean Corpuscular HGB CONC 30.6 g/dL (32.0-36.0); Mean Corpuscular Hemoglobin 30.1 pg (27.0-31.0); Mean Corpuscular Volume 98.5 fL (78.0-98.0); Mean Platelet Volume 6.3 fL (7.4-10.4); Platelet Count 227 thou/uL (130-400); RBC Distribution Width 14.8 % (11.5-14.5); White Blood Cell (WBC) Count 4.7 thou/uL (4.8-10.8)
[2021-08-24 06:43] LABS: Anion Gap 13 mmol/L (10-20); BUN (Urea Nitrogen) 15 mg/dL (8.4-25.7); Calc. Creatinine Clearance 173 mL/min (70-130); Carbon Dioxide 36 mmol/L (23-31); Chloride 95 mmol/L (98-107); Glucose 154 mg/dL (80-115); Potassium 3.7 mmol/L (3.5-5.1); Sodium 140 mmol/L (136-145)
[2021-08-24] MEDS: Apixaban 5 MG TAB PO SCH ×2 (08:05→20:52)
[2021-08-24] MEDS: Sotalol HCl 80 MG TAB PO SCH (08:05)
[2021-08-24] MEDS: Montelukast Sodium 10 mg Tablet PO SCH (08:06)
[2021-08-24] MEDS: Tamsulosin HCl 0.4 MG CAP PO SCH (08:06)
[2021-08-24] MEDS: guaiFENesin ER 600 MG TAB PO SCH ×2 (08:06→20:52)
[2021-08-24] MEDS: Aspirin 81 mg Enteric Coated Tablet PO SCH (08:06)
[2021-08-24] MEDS ORDERED: Potassium Chloride 20 MEQ TAB PO SCH (10:45)
[2021-08-24] MEDS ORDERED: Furosemide 20 MG/2 ML VIAL SLOW IVP SCH (10:45)
[2021-08-24] MEDS ORDERED: Acetylcysteine 20% 200 MG/ML 30 ML VIAL INH SCH (12:00)
[2021-08-24] MEDS: Acetylcysteine 20% 200 MG/ML 30 ML VIAL INH SCH ×2 (13:48→19:03)
[2021-08-24] MEDS: Furosemide 40 MG/4 ML VIAL SLOW IVP SCH (13:57)
[2021-08-24] MEDS: Atorvastatin Calcium 20 MG TAB PO SCH (20:52)
[2021-08-24] MEDS: Transdermal Patch Removal TOP SCH (20:58)
[2021-08-24] MEDS ORDERED: Melatonin 3 MG TAB PO SCH (21:30)
[2021-08-25] MEDS: methylPREDNISolone Sod Succ 40 MG VIAL IVP SCH ×5 (01:00→23:00)
[2021-08-25] MEDS: Cefepime 2 GM in Sodium Chloride 0.9% 100 ML IVPB SCH ×2 (01:01→14:10)
[2021-08-25] MEDS: Midodrine HCl 5 MG TAB PO SCH ×2 (05:45→14:05)
[2021-08-25] MEDS: Furosemide 40 MG/4 ML VIAL SLOW IVP SCH (05:45)
[2021-08-25] MEDS: Acetylcysteine 20% 200 MG/ML 30 ML VIAL INH SCH ×2 (06:25→14:08)
[2021-08-25 07:08] LABS: #Lymphocytes 0.5 thou/uL (1.20-3.40); #Monocytes 0.3 thou/uL (0.11-0.59); #Neutrophils 7.9 thou/uL (1.40-6.50); %Eosinophils 0.2 % (0.0-10.0); %Lymphocytes 5.5 % (21.0-51.0); %Monocytes 3.8 % (0.0-10.0); %Neutrophils 90.6 % (42.0-75.0); Hemoglobin 11.9 g/dL (14.0-18.0); Mean Corpuscular Hemoglobin 30.5 pg (27.0-31.0); Mean Corpuscular Volume 98.6 fL (78.0-98.0); Mean Platelet Volume 6.2 fL (7.4-10.4); Platelet Count 318 thou/uL (130-400); RBC Distribution Width 14.7 % (11.5-14.5); Red Blood Cell (RBC) Count 3.91 mill/uL (4.70-6.10); White Blood Cell (WBC) Count 8.8 thou/uL (4.8-10.8)
[2021-08-25 07:35] LABS: BUN (Urea Nitrogen) 28 mg/dL (8.4-25.7); Calc. Creatinine Clearance 128 mL/min (70-130); Calcium 9.2 mg/dL (7.8-10.44); Glucose 202 mg/dL (80-115); Magnesium 2.1 mg/dL (1.6-2.6)
[2021-08-25 07:46] LABS: Anion Gap 15 mmol/L (10-20); Carbon Dioxide 38 mmol/L (23-31); Chloride 94 mmol/L (98-107); Potassium 4.4 mmol/L (3.5-5.1); Sodium 143 mmol/L (136-145)
[2021-08-25] MEDS: guaiFENesin ER 600 MG TAB PO SCH ×2 (08:14→20:34)
[2021-08-25] MEDS: Sotalol HCl 80 MG TAB PO SCH (08:15)
[2021-08-25] MEDS: Multivit, Therapeutic 1 TAB PO SCH (08:15)
[2021-08-25] MEDS: Tamsulosin HCl 0.4 MG CAP PO SCH (08:15)
[2021-08-25] MEDS: Montelukast Sodium 10 mg Tablet PO SCH (08:15)
[2021-08-25] MEDS: Apixaban 5 MG TAB PO SCH ×2 (08:15→20:34)
[2021-08-25] MEDS: Aspirin 81 mg Enteric Coated Tablet PO SCH (08:15)
[2021-08-25] MEDS: Potassium Chloride 20 MEQ TAB PO SCH (08:16)
[2021-08-25] MEDS: Lidocaine 5% Patch TD SCH (08:18)
[2021-08-25] MEDS: Acetaminophen 325 MG TAB PO PRN ×2 (09:44→22:55)
[2021-08-25] MEDS: Albumin 25% 25 GM/100 ML BOT IVPB SCH ×3 (11:50→23:07)
[2021-08-25] MEDS ORDERED: Furosemide 20 MG TAB PO SCH (14:00)
[2021-08-25] MEDS ORDERED: Furosemide 80 MG TAB PO SCH (14:00)
[2021-08-25] MEDS: Furosemide 100 MG/10 ML VIAL SLOW IVP SCH (16:03)
[2021-08-25] MEDS: Melatonin 3 MG TAB PO SCH (20:33)
[2021-08-25] MEDS: Transdermal Patch Removal TOP SCH (20:34)
[2021-08-25] MEDS: Atorvastatin Calcium 20 MG TAB PO SCH (20:34)
[2021-08-26] MEDS: Cefepime 2 GM in Sodium Chloride 0.9% 100 ML IVPB SCH ×2 (02:12→13:44)
[2021-08-26 05:55] LABS: #Lymphocytes 0.3 thou/uL (1.20-3.40); #Monocytes 0.4 thou/uL (0.11-0.59); #Neutrophils 7.4 thou/uL (1.40-6.50); %Basophils 0.1 % (0.0-1.0); %Eosinophils 0.1 % (0.0-10.0); %Lymphocytes 4.2 % (21.0-51.0); %Neutrophils 90.7 % (42.0-75.0); Hemoglobin 10.5 g/dL (14.0-18.0); Mean Corpuscular Hemoglobin 32.1 pg (27.0-31.0); Mean Corpuscular Volume 97.2 fL (78.0-98.0); Mean Platelet Volume 6.1 fL (7.4-10.4); Platelet Count 254 thou/uL (130-400); RBC Distribution Width 14.5 % (11.5-14.5); Red Blood Cell (RBC) Count 3.26 mill/uL (4.70-6.10); White Blood Cell (WBC) Count 8.2 thou/uL (4.8-10.8)
[2021-08-26 06:11] LABS: BUN (Urea Nitrogen) 30 mg/dL (8.4-25.7); Calc. Creatinine Clearance 148 mL/min (70-130); Calcium 9.2 mg/dL (7.8-10.44); Glucose 206 mg/dL (80-115)
[2021-08-26 06:21] LABS: Anion Gap 13 mmol/L (10-20); Carbon Dioxide 39 mmol/L (23-31); Chloride 93 mmol/L (98-107); Potassium 3.4 mmol/L (3.5-5.1); Sodium 142 mmol/L (136-145)
[2021-08-26] MEDS: Furosemide 100 MG/10 ML VIAL SLOW IVP SCH ×2 (07:27→13:44)
[2021-08-26] MEDS: Albumin 25% 25 GM/100 ML BOT IVPB SCH (07:27)
[2021-08-26] MEDS: methylPREDNISolone Sod Succ 40 MG VIAL IVP SCH ×4 (07:27→22:25)
[2021-08-26] MEDS: Multivit, Therapeutic 1 TAB PO SCH (08:26)
[2021-08-26] MEDS: Aspirin 81 mg Enteric Coated Tablet PO SCH (08:26)
[2021-08-26] MEDS: Montelukast Sodium 10 mg Tablet PO SCH (08:26)
[2021-08-26] MEDS: guaiFENesin ER 600 MG TAB PO SCH ×2 (08:26→22:25)
[2021-08-26] MEDS: Tamsulosin HCl 0.4 MG CAP PO SCH (08:26)
[2021-08-26] MEDS: Potassium Chloride 20 MEQ TAB PO SCH (08:26)
[2021-08-26] MEDS: Apixaban 5 MG TAB PO SCH ×2 (08:26→22:25)
[2021-08-26] MEDS: Sotalol HCl 80 MG TAB PO SCH (08:27)
[2021-08-26] MEDS: Lidocaine 5% Patch TD SCH (08:35)
[2021-08-26] MEDS: ALPRAZolam 0.25 MG TAB PO SCH ×3 (10:10→22:25)
[2021-08-26] MEDS: Melatonin 3 MG TAB PO SCH (21:00)
[2021-08-26] MEDS: Atorvastatin Calcium 20 MG TAB PO SCH (22:25)
[2021-08-26] MEDS: Docusate 100 MG CAP PO PRN (22:25)
[2021-08-26] MEDS: Transdermal Patch Removal TOP SCH (22:26)
[2021-08-27] MEDS: Cefepime 2 GM in Sodium Chloride 0.9% 100 ML IVPB SCH ×2 (02:50→14:32)
[2021-08-27] MEDS: methylPREDNISolone Sod Succ 40 MG VIAL IVP SCH ×4 (06:15→21:31)
[2021-08-27] MEDS: Furosemide 100 MG/10 ML VIAL SLOW IVP SCH (06:15)
[2021-08-27 06:21] LABS: #Lymphocytes 0.4 thou/uL (1.20-3.40); #Monocytes 0.5 thou/uL (0.11-0.59); #Neutrophils 9.3 thou/uL (1.40-6.50); %Eosinophils 0.1 % (0.0-10.0); %Lymphocytes 4.3 % (21.0-51.0); %Monocytes 5.1 % (0.0-10.0); %Neutrophils 90.5 % (42.0-75.0); Hemoglobin 11.2 g/dL (14.0-18.0); Mean Corpuscular HGB CONC 31.5 g/dL (32.0-36.0); Mean Corpuscular Hemoglobin 30.8 pg (27.0-31.0); Mean Corpuscular Volume 97.7 fL (78.0-98.0); Mean Platelet Volume 6.1 fL (7.4-10.4); Platelet Count 295 thou/uL (130-400); RBC Distribution Width 14.6 % (11.5-14.5); Red Blood Cell (RBC) Count 3.65 mill/uL (4.70-6.10); White Blood Cell (WBC) Count 10.3 thou/uL (4.8-10.8)
[2021-08-27 06:35] LABS: BUN (Urea Nitrogen) 34 mg/dL (8.4-25.7); Calc. Creatinine Clearance 138 mL/min (70-130); Calcium 9.4 mg/dL (7.8-10.44); Glucose 270 mg/dL (80-115)
[2021-08-27 06:44] LABS: Anion Gap 12 mmol/L (10-20); Chloride 92 mmol/L (98-107); Potassium 3.3 mmol/L (3.5-5.1); Sodium 144 mmol/L (136-145)
[2021-08-27 06:46] LABS: Carbon Dioxide 43 mmol/L (23-31)
[2021-08-27] MEDS: Potassium Chloride 20 MEQ TAB PO SCH (08:56)
[2021-08-27] MEDS: guaiFENesin ER 600 MG TAB PO SCH ×2 (08:56→19:53)
[2021-08-27] MEDS: Sotalol HCl 80 MG TAB PO SCH (08:56)
[2021-08-27] MEDS: Apixaban 5 MG TAB PO SCH ×2 (08:56→19:52)
[2021-08-27] MEDS: ALPRAZolam 0.25 MG TAB PO SCH ×3 (08:56→19:53)
[2021-08-27] MEDS: Multivit, Therapeutic 1 TAB PO SCH (09:00)
[2021-08-27] MEDS: Tamsulosin HCl 0.4 MG CAP PO SCH (09:00)
[2021-08-27] MEDS: Aspirin 81 mg Enteric Coated Tablet PO SCH (09:00)
[2021-08-27] MEDS: Montelukast Sodium 10 mg Tablet PO SCH (09:00)
[2021-08-27] MEDS: Polyethylene Glycol 3350 17 GM Packet PO SCH (09:44)
[2021-08-27] MEDS: Lidocaine 5% Patch TD SCH (09:46)
[2021-08-27] MEDS: Atorvastatin Calcium 20 MG TAB PO SCH (19:52)
[2021-08-27] MEDS: Melatonin 3 MG TAB PO SCH (19:52)
[2021-08-27] MEDS: acetaZOLAMIDE Sodium 500 mg Vial IVP SCH (19:52)
[2021-08-27] MEDS: Sterile Water 10 ML VIAL IVP SCH (19:52)
[2021-08-27] MEDS: Senokot S 8.6-50 MG TAB PO SCH (19:53)
[2021-08-27] MEDS ORDERED: acetaZOLAMIDE Sodium 500 mg Vial IVP SCH (21:00)
[2021-08-28] MEDS: Cefepime 2 GM in Sodium Chloride 0.9% 100 ML IVPB SCH ×2 (02:50→15:14)
[2021-08-28] MEDS: methylPREDNISolone Sod Succ 40 MG VIAL IVP SCH ×3 (02:55→21:48)
[2021-08-28 06:44] LABS: #Lymphocytes 0.5 thou/uL (1.20-3.40); #Monocytes 0.4 thou/uL (0.11-0.59); #Neutrophils 12.3 thou/uL (1.40-6.50); %Eosinophils 0.3 % (0.0-10.0); %Lymphocytes 3.6 % (21.0-51.0); %Monocytes 3.1 % (0.0-10.0); %Neutrophils 92.9 % (42.0-75.0); Hemoglobin 12.1 g/dL (14.0-18.0); Mean Corpuscular HGB CONC 32.3 g/dL (32.0-36.0); Mean Corpuscular Hemoglobin 31.9 pg (27.0-31.0); Mean Corpuscular Volume 98.5 fL (78.0-98.0); Mean Platelet Volume 6.3 fL (7.4-10.4); Platelet Count 357 thou/uL (130-400); RBC Distribution Width 14.5 % (11.5-14.5); Red Blood Cell (RBC) Count 3.79 mill/uL (4.70-6.10); White Blood Cell (WBC) Count 13.3 thou/uL (4.8-10.8)
[2021-08-28 07:12] LABS: BUN (Urea Nitrogen) 35 mg/dL (8.4-25.7); Calc. Creatinine Clearance 126 mL/min (70-130); Calcium 9.2 mg/dL (7.8-10.44); Glucose 402 mg/dL (80-115); Magnesium 2.4 mg/dL (1.6-2.6)
[2021-08-28 07:22] LABS: Anion Gap 11 mmol/L (10-20); Chloride 93 mmol/L (98-107); Potassium 3.5 mmol/L (3.5-5.1); Sodium 143 mmol/L (136-145)
[2021-08-28 07:35] LABS: Carbon Dioxide 43 mmol/L (23-31)
[2021-08-28] MEDS: ALPRAZolam 0.25 MG TAB PO SCH (08:11)
[2021-08-28] MEDS: guaiFENesin ER 600 MG TAB PO SCH ×2 (08:12→21:46)
[2021-08-28] MEDS: Apixaban 5 MG TAB PO SCH ×2 (08:12→21:45)
[2021-08-28] MEDS: Sotalol HCl 80 MG TAB PO SCH (08:12)
[2021-08-28] MEDS: Montelukast Sodium 10 mg Tablet PO SCH (08:12)
[2021-08-28] MEDS: Aspirin 81 mg Enteric Coated Tablet PO SCH (08:13)
[2021-08-28] MEDS: Tamsulosin HCl 0.4 MG CAP PO SCH (08:13)
[2021-08-28] MEDS: Potassium Chloride 20 MEQ TAB PO SCH (08:13)
[2021-08-28] MEDS: Senokot S 8.6-50 MG TAB PO SCH ×2 (08:13→21:47)
[2021-08-28] MEDS: Polyethylene Glycol 3350 17 GM Packet PO SCH (08:13)
[2021-08-28] MEDS: Multivit, Therapeutic 1 TAB PO SCH (08:13)
[2021-08-28] MEDS: acetaZOLAMIDE Sodium 500 mg Vial IVP SCH ×2 (08:55→21:48)
[2021-08-28] MEDS: Sterile Water 10 ML VIAL IVP SCH ×2 (08:56→21:49)
[2021-08-28] MEDS ORDERED: Bisacodyl 10 MG SUPP PR PRN (09:42)
[2021-08-28] MEDS ORDERED: Magnesium Citrate 300 ML BOT PO SCH (13:00)
[2021-08-28] MEDS: Atorvastatin Calcium 20 MG TAB PO SCH (21:45)
[2021-08-28] MEDS: Melatonin 3 MG TAB PO SCH (21:47)
[2021-08-29] MEDS: Cefepime 2 GM in Sodium Chloride 0.9% 100 ML IVPB SCH ×2 (01:41→14:16)
[2021-08-29 07:05] LABS: #Eosinphils 0.1 thou/uL (0.0-0.7); #Lymphocytes 0.5 thou/uL (1.20-3.40); #Monocytes 0.5 thou/uL (0.11-0.59); #Neutrophils 11.2 thou/uL (1.40-6.50); %Eosinophils 0.4 % (0.0-10.0); %Lymphocytes 3.7 % (21.0-51.0); %Monocytes 3.7 % (0.0-10.0); %Neutrophils 92.2 % (42.0-75.0); Hemoglobin 11.7 g/dL (14.0-18.0); Mean Corpuscular HGB CONC 30.7 g/dL (32.0-36.0); Mean Corpuscular Hemoglobin 30.6 pg (27.0-31.0); Mean Corpuscular Volume 99.8 fL (78.0-98.0); Mean Platelet Volume 6.5 fL (7.4-10.4); Platelet Count 354 thou/uL (130-400); RBC Distribution Width 14.6 % (11.5-14.5); Red Blood Cell (RBC) Count 3.82 mill/uL (4.70-6.10); White Blood Cell (WBC) Count 12.2 thou/uL (4.8-10.8)
[2021-08-29 07:32] LABS: BUN (Urea Nitrogen) 40 mg/dL (8.4-25.7); Calc. Creatinine Clearance 125 mL/min (70-130); Glucose 540 mg/dL (80-115); Magnesium 3.2 mg/dL (1.6-2.6)
[2021-08-29 07:41] LABS: Anion Gap 16 mmol/L (10-20); Carbon Dioxide 37 mmol/L (23-31); Chloride 91 mmol/L (98-107); Potassium 4.7 mmol/L (3.5-5.1); Sodium 139 mmol/L (136-145)
[2021-08-29] MEDS: Potassium Chloride 20 MEQ TAB PO SCH (09:12)
[2021-08-29] MEDS: Montelukast Sodium 10 mg Tablet PO SCH (09:12)
[2021-08-29] MEDS: Senokot S 8.6-50 MG TAB PO SCH ×2 (09:12→20:21)
[2021-08-29] MEDS: Tamsulosin HCl 0.4 MG CAP PO SCH (09:13)
[2021-08-29] MEDS: guaiFENesin ER 600 MG TAB PO SCH ×2 (09:13→20:21)
[2021-08-29] MEDS: Multivit, Therapeutic 1 TAB PO SCH (09:13)
[2021-08-29] MEDS: methylPREDNISolone Sod Succ 40 MG VIAL IVP SCH ×2 (09:13→20:21)
[2021-08-29] MEDS: Apixaban 5 MG TAB PO SCH ×2 (09:13→20:20)
[2021-08-29] MEDS: Sotalol HCl 80 MG TAB PO SCH (09:14)
[2021-08-29] MEDS: Sterile Water 10 ML VIAL IVP SCH ×2 (09:16→20:37)
[2021-08-29] MEDS: acetaZOLAMIDE Sodium 500 mg Vial IVP SCH ×2 (09:16→20:36)
[2021-08-29] MEDS: Aspirin 81 mg Enteric Coated Tablet PO SCH (09:16)
[2021-08-29] MEDS: Polyethylene Glycol 3350 17 GM Packet PO SCH (09:17)
[2021-08-29] MEDS ORDERED: traMADol HCl 50 MG TAB PO PRN (13:28)
[2021-08-29] MEDS ORDERED: Lidocaine 5% Patch TD SCH (14:00)
[2021-08-29] MEDS: Furosemide 40 MG TAB PO SCH (14:16)
[2021-08-29] MEDS: Atorvastatin Calcium 20 MG TAB PO SCH (20:19)
[2021-08-29] MEDS: Melatonin 3 MG TAB PO SCH (20:20)
[2021-08-29] MEDS: ALPRAZolam 0.25 MG TAB PO PRN (23:11)
[2021-08-30] MEDS: Transdermal Patch Removal TOP SCH (01:09)
[2021-08-30] MEDS: Cefepime 2 GM in Sodium Chloride 0.9% 100 ML IVPB SCH ×2 (02:47→13:28)
[2021-08-30] MEDS: Aspirin 81 mg Enteric Coated Tablet PO SCH (08:52)
[2021-08-30] MEDS: Furosemide 40 MG TAB PO SCH (08:52)
[2021-08-30] MEDS: guaiFENesin ER 600 MG TAB PO SCH ×2 (08:52→20:28)
[2021-08-30] MEDS: Apixaban 5 MG TAB PO SCH ×2 (08:52→20:28)
[2021-08-30] MEDS: Potassium Chloride 20 MEQ TAB PO SCH (08:52)
[2021-08-30] MEDS: Polyethylene Glycol 3350 17 GM Packet PO SCH (08:53)
[2021-08-30] MEDS: Tamsulosin HCl 0.4 MG CAP PO SCH (08:53)
[2021-08-30] MEDS: Montelukast Sodium 10 mg Tablet PO SCH (08:53)
[2021-08-30] MEDS: Senokot S 8.6-50 MG TAB PO SCH ×2 (08:53→20:28)
[2021-08-30] MEDS: Sotalol HCl 80 MG TAB PO SCH (08:54)
[2021-08-30] MEDS: methylPREDNISolone Sod Succ 40 MG VIAL IVP SCH (08:54)
[2021-08-30] MEDS: Multivit, Therapeutic 1 TAB PO SCH (08:54)
[2021-08-30] MEDS: Sterile Water 10 ML VIAL IVP SCH ×2 (08:54→20:29)
[2021-08-30] MEDS: Lidocaine 5% Patch TD SCH (13:27)
[2021-08-30 14:17] LABS: Hemoglobin 11.6 g/dL (14.0-18.0); Mean Corpuscular HGB CONC 31.8 g/dL (32.0-36.0); Mean Corpuscular Hemoglobin 31.8 pg (27.0-31.0); Mean Platelet Volume 6.6 fL (7.4-10.4); Platelet Count 318 thou/uL (130-400); Red Blood Cell (RBC) Count 3.66 mill/uL (4.70-6.10); White Blood Cell (WBC) Count 14.9 thou/uL (4.8-10.8)
[2021-08-30 14:30] LABS: Anion Gap 11 mmol/L (10-20); BUN (Urea Nitrogen) 42 mg/dL (8.4-25.7); Calc. Creatinine Clearance 127 mL/min (70-130); Carbon Dioxide 34 mmol/L (23-31); Chloride 96 mmol/L (98-107); Glucose 489 mg/dL (80-115); Magnesium 2.5 mg/dL (1.6-2.6); Potassium 4.5 mmol/L (3.5-5.1); Sodium 136 mmol/L (136-145)
[2021-08-30 14:38] LABS: Anisocytosis SLIGHT = 6-15 cells (100X) (0-5/hpf); Band 7 % (5-11); MDiff Complete? YES; Macrocytosis SLIGHT = 6-15 cells (100X) (0-5/hpf); Metamyelocyte 1 % (0-0); Monocytes 1 % (0-10); Myelocyte 1 % (0-0); Neutrophil 90 % (42-75); Nucleated RBC 3 % (0); Ovalocytes SLIGHT = 2-5 cells (100X) (0-1/hpf); Platelet Morphology Comment Appears Adequate; Polychromasia MODERATE = 3-4 cells (100X) (0-2/hpf)
[2021-08-30 17:21] LABS: Bacteria/HPF None Seen HPF (None Seen); Bilirubin Negative (Negative); Blood, Urine Negative (Negative); Clarity Clear (Clear); Glucose, Urine (Dipstick) Greater than 1000 mg/dL (Negative); Ketone, Urine Negative (Negative); Leukocyte Negative Leu/uL (Negative); Nitrite Negative (Negative); Protein, Urine (Dipstick) Negative (Neg-Trace); RBC/HPF 0-3 HPF (0-3); Specific Gravity, Urine 1.023 (1.002-1.036); Squamous Epithelial 0-3 HPF (0-3); Urobilinogen Normal mg/dL (Less than 2); WBC/HPF 0-3 HPF (0-3); pH, Urine 6.5 (5.0-9.0)
[2021-08-30 17:23] LABS: Urine Culture Reflex No No
[2021-08-30] MEDS ORDERED: Lantus 1000 UNITS/10 ML VIAL SC SCH (17:35)
[2021-08-30] MEDS ORDERED: Dextrose 5% in Water 1,000 ML IV PRN (17:40)
[2021-08-30] MEDS ORDERED: Dextrose 50% Abboject 50 ML SYRINGE SLOW IVP PRN (17:40)
[2021-08-30] MEDS: HumaLOG 300 UNITS/3 ML VIAL SC SCH (18:20)
[2021-08-30] MEDS: Atorvastatin Calcium 20 MG TAB PO SCH (20:28)
[2021-08-30] MEDS: Melatonin 3 MG TAB PO SCH (20:28)
[2021-08-30] MEDS: HumaLOG 300 UNITS/3 ML VIAL SC PRN (20:42)
[2021-08-30 22:48] LABS: SARS-CoV-2 PCR by NAA Not Detected (NotDetected)
[2021-08-31] MEDS: Transdermal Patch Removal TOP SCH ×2 (02:02→21:46)
[2021-08-31] MEDS ORDERED: Cepastat Lozenges 1 LOZ PO PRN (02:20)
[2021-08-31] MEDS: Acetaminophen 325 MG TAB PO PRN (02:41)
[2021-08-31 07:04] LABS: Hemoglobin A1c 6.5 % (4.0-6.0)
[2021-08-31] MEDS: Lidocaine 5% Patch TD SCH ×2 (07:11→13:46)
[2021-08-31 07:16] LABS: BUN (Urea Nitrogen) 35 mg/dL (8.4-25.7); Calc. Creatinine Clearance 168 mL/min (70-130); Calcium 9.2 mg/dL (7.8-10.44); Glucose 175 mg/dL (80-115); Magnesium 2.3 mg/dL (1.6-2.6)
[2021-08-31 07:25] LABS: Anion Gap 14 mmol/L (10-20); Carbon Dioxide 34 mmol/L (23-31); Chloride 98 mmol/L (98-107); Potassium 4.3 mmol/L (3.5-5.1); Sodium 142 mmol/L (136-145)
[2021-08-31 08:12] LABS: Hemoglobin 11.5 g/dL (14.0-18.0); Mean Corpuscular Hemoglobin 30.7 pg (27.0-31.0); Mean Corpuscular Volume 96.1 fL (78.0-98.0); Mean Platelet Volume 6.7 fL (7.4-10.4); Platelet Count 344 thou/uL (130-400); RBC Distribution Width 15.4 % (11.5-14.5); Red Blood Cell (RBC) Count 3.75 mill/uL (4.70-6.10); White Blood Cell (WBC) Count 14.6 thou/uL (4.8-10.8)
[2021-08-31 08:35] LABS: Anisocytosis SLIGHT = 6-15 cells (100X) (0-5/hpf); Basophilic Stippling MODERATE = 3-5 cells (100X) (None Seen); Lymphocytes 4 % (21-51); MDiff Complete? YES; Monocytes 11 % (0-10); Neutrophil 85 % (42-75); Nucleated RBC 1 % (0); Platelet Morphology Comment Appears Adequate; Polychromasia SLIGHT = 2-3 cells (100X) (0-2/hpf)
[2021-08-31] MEDS: Montelukast Sodium 10 mg Tablet PO SCH (08:35)
[2021-08-31] MEDS: Potassium Chloride 20 MEQ TAB PO SCH (08:36)
[2021-08-31] MEDS: Sotalol HCl 80 MG TAB PO SCH (08:36)
[2021-08-31] MEDS: guaiFENesin ER 600 MG TAB PO SCH ×2 (08:36→21:02)
[2021-08-31] MEDS: Aspirin 81 mg Enteric Coated Tablet PO SCH (08:36)
[2021-08-31] MEDS: Senokot S 8.6-50 MG TAB PO SCH ×2 (08:36→21:02)
[2021-08-31] MEDS: Apixaban 5 MG TAB PO SCH ×2 (08:36→21:03)
[2021-08-31] MEDS: predniSONE 20 MG TAB PO SCH (08:36)
[2021-08-31] MEDS: Polyethylene Glycol 3350 17 GM Packet PO SCH (08:37)
[2021-08-31] MEDS: Tamsulosin HCl 0.4 MG CAP PO SCH (08:37)
[2021-08-31] MEDS: Sterile Water 10 ML VIAL IVP SCH ×2 (08:37→21:03)
[2021-08-31] MEDS: Multivit, Therapeutic 1 TAB PO SCH (08:37)
[2021-08-31] MEDS: Furosemide 40 MG TAB PO SCH (08:37)
[2021-08-31] MEDS: HumaLOG 300 UNITS/3 ML VIAL SC SCH (08:38)
[2021-08-31] MEDS: Docusate 100 MG CAP PO PRN (15:55)
[2021-08-31] MEDS: Insulin Regular 300 UNITS/3 ML VIAL SC PRN (18:05)
[2021-08-31] MEDS: Lantus 1000 UNITS/10 ML VIAL SC SCH (21:03)
[2021-08-31] MEDS: Atorvastatin Calcium 20 MG TAB PO SCH (21:03)
[2021-08-31] MEDS: Melatonin 3 MG TAB PO SCH (22:59)
[2021-09-01] MEDS: Acetaminophen 325 MG TAB PO PRN (03:05)
[2021-09-01] MEDS: Furosemide 40 MG TAB PO SCH (06:28)
[2021-09-01] MEDS: predniSONE 20 MG TAB PO SCH (08:40)
[2021-09-01] MEDS: Senokot S 8.6-50 MG TAB PO SCH ×2 (08:41→21:23)
[2021-09-01] MEDS: guaiFENesin ER 600 MG TAB PO SCH ×2 (08:41→21:23)
[2021-09-01] MEDS: Tamsulosin HCl 0.4 MG CAP PO SCH (08:41)
[2021-09-01] MEDS: Multivit, Therapeutic 1 TAB PO SCH (08:41)
[2021-09-01] MEDS: Apixaban 5 MG TAB PO SCH ×2 (08:41→21:23)
[2021-09-01] MEDS: Aspirin 81 mg Enteric Coated Tablet PO SCH (08:41)
[2021-09-01] MEDS: Potassium Chloride 20 MEQ TAB PO SCH (08:41)
[2021-09-01] MEDS: Sotalol HCl 80 MG TAB PO SCH (08:42)
[2021-09-01] MEDS: Polyethylene Glycol 3350 17 GM Packet PO SCH (08:42)
[2021-09-01] MEDS: Montelukast Sodium 10 mg Tablet PO SCH (08:42)
[2021-09-01] MEDS: Sterile Water 10 ML VIAL IVP SCH ×2 (08:43→21:24)
[2021-09-01] MEDS: Lidocaine 5% Patch TD SCH (13:53)
[2021-09-01] MEDS: Atorvastatin Calcium 20 MG TAB PO SCH (21:23)
[2021-09-01] MEDS: Melatonin 3 MG TAB PO SCH (21:23)
[2021-09-01] MEDS: HumaLOG 300 UNITS/3 ML VIAL SC PRN (21:24)
[2021-09-01] MEDS: Lantus 1000 UNITS/10 ML VIAL SC SCH (21:24)
[2021-09-02] MEDS: Transdermal Patch Removal TOP SCH (02:02)
[2021-09-02] MEDS: ALPRAZolam 0.25 MG TAB PO PRN (03:35)
[2021-09-02] MEDS: Polyethylene Glycol 3350 17 GM Packet PO SCH (07:44)
[2021-09-02] MEDS: Furosemide 40 MG TAB PO SCH (07:44)
[2021-09-02] MEDS: Apixaban 5 MG TAB PO SCH ×2 (07:44→20:16)
[2021-09-02] MEDS: Aspirin 81 mg Enteric Coated Tablet PO SCH (07:44)
[2021-09-02] MEDS: guaiFENesin ER 600 MG TAB PO SCH ×2 (07:44→20:16)
[2021-09-02] MEDS: Senokot S 8.6-50 MG TAB PO SCH ×2 (07:45→20:16)
[2021-09-02] MEDS: Montelukast Sodium 10 mg Tablet PO SCH (07:45)
[2021-09-02] MEDS: Tamsulosin HCl 0.4 MG CAP PO SCH (07:45)
[2021-09-02] MEDS: Sotalol HCl 80 MG TAB PO SCH (07:45)
[2021-09-02] MEDS: predniSONE 20 MG TAB PO SCH (07:45)
[2021-09-02] MEDS: Multivit, Therapeutic 1 TAB PO SCH (07:45)
[2021-09-02] MEDS: Sterile Water 10 ML VIAL IVP SCH ×2 (07:46→20:28)
[2021-09-02 07:54] LABS: #Eosinphils 0.2 thou/uL (0.0-0.7); #Monocytes 0.7 thou/uL (0.11-0.59); #Neutrophils 12.7 thou/uL (1.40-6.50); %Eosinophils 1.4 % (0.0-10.0); %Lymphocytes 6.8 % (21.0-51.0); %Neutrophils 86.8 % (42.0-75.0); Hemoglobin 11.4 g/dL (14.0-18.0); Mean Corpuscular HGB CONC 31.3 g/dL (32.0-36.0); Mean Corpuscular Hemoglobin 30.6 pg (27.0-31.0); Mean Corpuscular Volume 97.7 fL (78.0-98.0); Mean Platelet Volume 6.6 fL (7.4-10.4); Platelet Count 320 thou/uL (130-400); RBC Distribution Width 15.7 % (11.5-14.5); Red Blood Cell (RBC) Count 3.72 mill/uL (4.70-6.10); White Blood Cell (WBC) Count 14.6 thou/uL (4.8-10.8)
[2021-09-02 08:16] LABS: BUN (Urea Nitrogen) 25 mg/dL (8.4-25.7); Calc. Creatinine Clearance 177 mL/min (70-130); Glucose 63 mg/dL (80-115)
[2021-09-02 08:25] LABS: Anion Gap 10 mmol/L (10-20); Carbon Dioxide 38 mmol/L (23-31); Chloride 95 mmol/L (98-107); Potassium 3.7 mmol/L (3.5-5.1); Sodium 139 mmol/L (136-145)
[2021-09-02] MEDS ORDERED: Bisacodyl 10 MG SUPP PR PRN (12:48)
[2021-09-02] MEDS: Lidocaine 5% Patch TD SCH (13:41)
[2021-09-02] MEDS: Atorvastatin Calcium 20 MG TAB PO SCH (20:16)
[2021-09-02] MEDS: Melatonin 3 MG TAB PO SCH (20:16)
[2021-09-02] MEDS: HumaLOG 300 UNITS/3 ML VIAL SC PRN (20:17)
[2021-09-02] MEDS ORDERED: Lantus 1000 UNITS/10 ML VIAL SC SCH (21:00)
[2021-09-02] MEDS: Acetaminophen 325 MG TAB PO PRN (23:39)
[2021-09-03] MEDS: Transdermal Patch Removal TOP SCH (03:32)
[2021-09-03 05:36] VITALS: BMI 29.5
[2021-09-03] MEDS: Polyethylene Glycol 3350 17 GM Packet PO SCH (08:15)
[2021-09-03] MEDS: Aspirin 81 mg Enteric Coated Tablet PO SCH (08:18)
[2021-09-03] MEDS: Multivit, Therapeutic 1 TAB PO SCH (08:19)
[2021-09-03] MEDS: Apixaban 5 MG TAB PO SCH (08:19)
[2021-09-03] MEDS: Furosemide 40 MG TAB PO SCH (08:19)
[2021-09-03] MEDS: Tamsulosin HCl 0.4 MG CAP PO SCH (08:20)
[2021-09-03] MEDS: guaiFENesin ER 600 MG TAB PO SCH (08:20)
[2021-09-03] MEDS: predniSONE 20 MG TAB PO SCH (08:21)
[2021-09-03] MEDS: Montelukast Sodium 10 mg Tablet PO SCH (08:26)
[2021-09-03] MEDS: Sotalol HCl 80 MG TAB PO SCH (08:26)
[2021-09-03] MEDS: Senokot S 8.6-50 MG TAB PO SCH (08:28)
[2021-09-03] MEDS: Sterile Water 10 ML VIAL IVP SCH (08:28)
[2021-09-03] MEDS: ALPRAZolam 0.25 MG TAB PO PRN (10:12)
[2021-09-03] MEDS: Acetaminophen 325 MG TAB PO PRN (11:28)
[2021-09-03] MEDS: Insulin Regular 300 UNITS/3 ML VIAL SC PRN (12:19)
[2021-09-03] MEDS: Lidocaine 5% Patch TD SCH (14:51)
[2021-09-03 16:59] VITALS: BP 124/79; TEMP 97.6
== END 2021-09-03 18:56 | disposition swing bed (61) | DRG 291 ==
LOC: ERS 12:17 → T4-A 14:44
PROVIDERS: ADMIT Family Medicine; ATTEND Internal Medicine
DX: I11.0 Hypertensive heart disease with heart failure (principal); J96.21 Acute and chronic respiratory failure with hypoxia; I50.43 Acute on chronic combined systolic (congestive) and diastolic (congestive) heart failure; J44.1 Chronic obstructive pulmonary disease with (acute) exacerbation; E87.3 Alkalosis; I50.42 Chronic combined systolic (congestive) and diastolic (congestive) heart failure; I48.0 Paroxysmal atrial fibrillation; N40.0 Benign prostatic hyperplasia without lower urinary tract symptoms; F32.A Depression, unspecified; I25.10 Atherosclerotic heart disease of native coronary artery without angina pectoris; K21.9 Gastro-esophageal reflux disease without esophagitis; E11.65 Type 2 diabetes mellitus with hyperglycemia; E78.2 Mixed hyperlipidemia; E66.9 Obesity, unspecified; Z95.810 Presence of automatic (implantable) cardiac defibrillator; Z87.891 Personal history of nicotine dependence; Z88.5 Allergy status to narcotic agent; Z79.01 Long term (current) use of anticoagulants; Z79.899 Other long term (current) drug therapy; Z86.711 Personal history of pulmonary embolism; Z79.82 Long term (current) use of aspirin; Z79.52 Long term (current) use of systemic steroids; Z99.81 Dependence on supplemental oxygen; Z68.29 Body mass index [BMI] 29.0-29.9, adult
CPT/HCPCS: 0240U; 36415; 36416; 71045; 80048; 80053; 81001; 83036; 83735; 83880; 84145; 84484; 85025; 86140; 87070; 87205; 93005; 94640; 96365; 96366; 96367; J0132; J0692; J1120; J1815; J1940; J2920; J3370; J3475; J3490; J7512; J7611; J7620; P9047; U0003; U0005

== ENCOUNTER 2022-01-29 13:04 | Emergency (ER) | payer MEDICARE ==
[2022-01-29 14:02] LABS: #Eosinphils 0.1 thou/uL (0.0-0.7); #Lymphocytes 1.2 thou/uL (1.20-3.40); #Monocytes 0.9 thou/uL (0.11-0.59); #Neutrophils 6.8 thou/uL (1.40-6.50); %Basophils 0.1 % (0.0-1.0); %Eosinophils 1.1 % (0.0-10.0); %Lymphocytes 13.5 % (21.0-51.0); %Monocytes 9.5 % (0.0-10.0); %Neutrophils 75.8 % (42.0-75.0); Hemoglobin 9.3 g/dL (14.0-18.0); Mean Corpuscular HGB CONC 28.3 g/dL (32.0-36.0); Mean Corpuscular Hemoglobin 24.2 pg (27.0-31.0); Mean Corpuscular Volume 85.3 fL (78.0-98.0); Mean Platelet Volume 6.7 fL (7.4-10.4); Platelet Count 314 thou/uL (130-400); Red Blood Cell (RBC) Count 3.83 mill/uL (4.70-6.10)
[2022-01-29 14:17] LABS: Bilirubin Negative (Negative); Blood, Urine Negative (Negative); Clarity Turbid (Clear); Glucose, Urine (Dipstick) Normal (Negative); Ketone, Urine Negative (Negative); Leukocyte 75 Leu/uL (Negative); Nitrite Negative (Negative); Protein, Urine (Dipstick) Negative (Neg-Trace); Specific Gravity, Urine 1.014 (1.002-1.036); Urobilinogen Normal mg/dL (Less than 2)
[2022-01-29 14:19] LABS: RBC/HPF 0-3 HPF (0-3)
[2022-01-29 14:20] LABS: Bacteria/HPF 4+ HPF (None Seen); Squamous Epithelial 0-3 HPF (0-3); WBC/HPF 0-3 HPF (0-3)
[2022-01-29 14:21] LABS: ALT (SGPT) 10 U/L (8-55); AST (SGOT) 17 U/L (5-34); Albumin 2.4 g/dL (3.4-4.8); Alkaline Phosphatase 99 U/L (40-110); BUN (Urea Nitrogen) 17 mg/dL (8.4-25.7); Bilirubin, Total 0.2 mg/dL (0.2-1.2); Calc. Creatinine Clearance 0 mL/min (70-130); Calcium 8.3 mg/dL (7.8-10.44); Globulin 2.4 g/dL (2.4-3.5); Glucose 102 mg/dL (80-115); Magnesium 1.8 mg/dL (1.6-2.6); Protein, Total 4.8 g/dL (5.8-8.1)
[2022-01-29 14:31] LABS: Anion Gap 13 mmol/L (10-20); Carbon Dioxide 36 mmol/L (23-31); Chloride 95 mmol/L (98-107); Sodium 140 mmol/L (136-145)
== END 2022-01-29 16:29 | disposition home or self-care (01) ==
LOC: ERS 13:04
DX: N39.0 Urinary tract infection, site not specified (principal); K21.9 Gastro-esophageal reflux disease without esophagitis; E78.5 Hyperlipidemia, unspecified; I11.0 Hypertensive heart disease with heart failure; I50.9 Heart failure, unspecified; J44.9 Chronic obstructive pulmonary disease, unspecified; Z87.891 Personal history of nicotine dependence; Z79.899 Other long term (current) drug therapy
CPT/HCPCS: 36415; 71045; 80053; 81003; 81015; 83735; 83880; 84484; 85025; 87077; 87086; 87186; 93005

== ENCOUNTER 2022-02-25 09:23 | Outpatient (CLI) | payer MEDICARE | END 2022-02-25 09:24 | disposition home or self-care (01) | LOC: RAD 09:23 | PROVIDERS: ATTEND Internal Medicine Critical Care Medicine | DX: R06.00 Dyspnea, unspecified (principal) | CPT/HCPCS: 71046 ==

== ENCOUNTER 2022-12-04 11:44 | Outpatient (CLI) | payer OTHER | END 2022-12-04 11:45 | disposition home or self-care (01) | LOC: SCSRAD 11:44 | PROVIDERS: ATTEND Family Medicine | DX: J44.1 Chronic obstructive pulmonary disease with (acute) exacerbation (principal); J90 Pleural effusion, not elsewhere classified; J98.4 Other disorders of lung | CPT/HCPCS: 71046 ==